=== PATIENT | male | born 1940 | race Caucasian/White ===

== ENCOUNTER 2016-10-24 09:42 | Observation (INO) | payer MEDICARE, OTHER ==
[~2016-10-24] VITALS: Ht 177.8 cm; Wt 90.7 kg
[2016-10-24] VITALS (20 sets, daily range): BP systolic 99–191; BP diastolic 52–105
[~2016-10-24 09:42] MED LIST: ASPI325T4 PO; CARV6.25 PO; CEFP200T PO; ESCI20TA10 PO; HYDR12.58 PO; INSU100I13 SQ; LOSA100T6 PO; OMEG1CAP38 PO; OXYC5TAB PO; SODI650T PO; WARF5TAB7 PO
[2016-10-24] MEDS ORDERED: OMEG1CAP28 PO (10:04)
[2016-10-24] MEDS ORDERED: INSU100V8 SQ (10:04)
[2016-10-24] MEDS ORDERED: VALS1TAB27 PO (10:04)
[2016-10-24] MEDS ORDERED: INSU100I11 SQ (10:04)
[2016-10-24] MEDS: IV NORMAL SALINE 1000ML BAG 1,000 ML IV SCH ×4 (10:30→23:40)
[2016-10-24 10:31] LABS: BASO % 1 % (0-3); EOS % 2 % (0-3); HEMATOCRIT 36.9 % (39.0-53.0); HEMOGLOBIN 12.7 g/dL (13.0-17.5); LYMPH # 1.8 x10^3/uL (1.0-4.8); LYMPH % 27 % (24-48); MEAN CORPUSCULAR HEMOGLOBIN 31 pg (25-35); MEAN CORPUSCULAR HGB CONC 35 g/dL (31-37); MEAN CORPUSCULAR VOLUME 89 fL (79-100); MONO % 9 % (0-9); NEUT % 62 % (31-73); PLATELET COUNT 161 x10^3/uL (140-400); RED BLOOD COUNT 4.15 x10^6/uL (4.30-5.70); RED CELL DISTRIBUTION WIDTH 14.1 % (11.5-14.5); WHITE BLOOD COUNT 6.6 x10^3/uL (4.0-11.0)
[2016-10-24] MEDS ORDERED: LIDOCAINE 2% 20 ML VIAL. ONE (10:44)
[2016-10-24 10:45] LABS: INR 1.4 (0.8-1.1); PROTHROMBIN TIME PATIENT 16.2 SEC (11.7-14.0)
[2016-10-24] MEDS ORDERED: IODIXANOL 320 MG/ML 100 ML VIAL. ONE (10:45)
[2016-10-24] MEDS ORDERED: FENTANYL PF 250 MCG/5 ML VIAL. ONE (11:04)
[2016-10-24] MEDS ORDERED: MIDAZOLAM HCL/PF 5 MG/5 ML VIAL ONE (11:04)
[2016-10-24 11:05] LABS: CALCIUM 8.5 mg/dL (8.5-10.1); CREATININE 1.4 mg/dL (0.7-1.3); POTASSIUM 4.9 mmol/L (3.5-5.1)
--- NOTE | 2016-10-24 11:23 | PDOC ---
MODERATE SEDATION ASSESSMENT RISKS/ALTERNATIVES Risks/Alternatives Risks and alternatives of this type of sedation and procedure discussed with: RISK/ALTERNATIVES: Patient H & P ON CHART H & P H & P on chart and reviewed for co-morbid conditions and appropriate labs. H&P ON CHART: Yes STATUS PREG STATUS ASSESSED: N/A MEDS/ALLERGIES REVIEWED Meds/Allergies Reviewed Medications and Allergies including time and route of recently administered narcotics and sedatives. MEDS/ALLERGIES REVIEWED: Yes ASA RATING ASA RATING: III AIRWAY ASSESSMENT Airway Assessment Airway patency, oral function limitations, presence of caps, crowns, dentures, partials, and ability to extend neck assessed. AIRWAY ASSESSMENT: Yes MALLAMPATI SCORE MALLAMPATI SCORE: II PRE-SEDATION ASSESSMENT PRE-SEDATION ASSESSMENT: Yes THANIA TINSLEY MD Oct 24, 2016 11:22
[2016-10-24] MEDS ORDERED: VERAPAMIL 5 MG/2 ML VIAL. ONE (11:52)
[2016-10-24] MEDS ORDERED: HEPARIN for IV BOLUS 10,000 UNIT/10 ML VIAL. ONE (11:52)
[2016-10-24] MEDS ORDERED: NITROGLYCERIN 200 MCG/2 ML SYRINGE FOR CATH/VASC LAB. ONE (11:52)
[2016-10-24] MEDS ORDERED: HEPARIN for IV BOLUS 10,000 UNIT/10 ML VIAL. IART ONE (12:00)
[2016-10-24] MEDS ORDERED: NITROGLYCERIN 200 MCG/2 ML SYRINGE FOR CATH/VASC LAB. IART ONE (12:00)
[2016-10-24] MEDS ORDERED: VERAPAMIL 5 MG/2 ML VIAL. IART ONE (12:00)
[2016-10-24] MEDS ORDERED: HEPARIN for IV BOLUS 10,000 UNIT/10 ML VIAL. IV ONE (13:15)
[2016-10-24] MEDS ORDERED: MIDAZOLAM HCL/PF 5 MG/5 ML VIAL IV ONE (13:30)
[2016-10-24] MEDS ORDERED: IODIXANOL 320 MG/ML 100 ML VIAL. IART ONE (13:30)
[2016-10-24] MEDS ORDERED: LIDOCAINE 2% 20 ML VIAL. IJ ONE (13:30)
[2016-10-24] MEDS ORDERED: FENTANYL PF 250 MCG/5 ML VIAL. IV ONE (13:30)
--- NOTE | 2016-10-24 14:27 | CARD ---
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 Attempts at percutaneous intervention to right anterior tibial artery via antegrade appr oach was unsuccessful. Patient presented today for possible percutaneous revascularization of right a nterior tibial artery via pedal axis in an attempt to heal the wound in the right foot.. PROCEDURE NARRATIVE After the risks, benefits and alternative options, informed consent was obtained from patient. Baltazar nt brought to the cardiac Optimization Consultant and his right foot was prepped and draped in the usual fashion. A rterial access was obtained in the right dorsalis pedis artery under vascular ultrasound guidance and 6 Portuguese sheath was inserted. After several initial unsuccessful attempts at traversing the long ch ronic total occlusion of the right anterior tibial artery using 0.014 inch command guidewire followed by AsanCrypted Cloud pro-water guidewire were unsuccessful, this was successfully crossed with a 0.014 inch epi austin [employer]s guidewire. Multiple inflations were then performed within the proximal, mid and distal segm ents of the right anterior tibial artery using 2.0 x 120 mm Runnells balloon followed by 2.5 x 120 mm C hocolate balloon. Follow-up angiography showed resolution of the stenosis to 0%. Patient tolerated the procedure well. Hemostasis was achieved using TR band. There were no immediate complications. 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
[2016-10-24] MEDS: IV 1/2 NORMAL SALINE 1,000 ML IV SCH ×2 (14:39→22:37)
[2016-10-24] MEDS ORDERED: ACETAMINOPHEN 325 MG TABLET. PO PRN (14:45)
[2016-10-24] MEDS ORDERED: WARFARIN 5 MG TABLET. PO SCH (17:00)
[2016-10-24] MEDS: CARVEDILOL 6.25 MG TABLET PO SCH (17:21)
[2016-10-24] MEDS: INSULIN ASPART 300 UNITS/3 ML INSULN.PEN SQ SCH (17:31)
[2016-10-24] MEDS ORDERED: DIPHENHYDRAMINE HCL 25 MG CAPSULE PO PRN (20:15)
[2016-10-24] MEDS ORDERED: INSULIN DETEMIR 300 UNITS/3 ML INSULN.PEN. SQ SCH (21:00)
[2016-10-24] MEDS: SODIUM BICARBONATE 650 MG TABLET. PO SCH (21:48)
[2016-10-25 03:15] VITALS: BP 176/81
[2016-10-25] MEDS: IV 1/2 NORMAL SALINE 1,000 ML IV SCH (06:45)
[2016-10-25 07:16] VITALS: BP 169/82
[2016-10-25] MEDS: INSULIN ASPART 300 UNITS/3 ML INSULN.PEN SQ SCH ×2 (07:30→12:29)
[2016-10-25] MEDS ORDERED: LOSARTAN POTASSIUM 50 MG TABLET. PO SCH (09:00)
[2016-10-25] MEDS ORDERED: HYDROCHLOROTHIAZIDE 12.5 MG CAPSULE. PO SCH (09:00)
[2016-10-25] MEDS ORDERED: OMEGA-3 FATTY ACIDS/FISH OIL 1,000 MG CAPSULE. PO SCH (09:00)
[2016-10-25] MEDS ORDERED: ESCITALOPRAM 10 MG TABLET. PO PRN (09:00)
[2016-10-25] MEDS ORDERED: ASPIRIN 325 MG TABLET PO SCH (09:00)
[2016-10-25] MEDS: SODIUM BICARBONATE 650 MG TABLET. PO SCH (09:27)
[2016-10-25] MEDS: CARVEDILOL 6.25 MG TABLET PO SCH (09:29)
[2016-10-25 10:15] VITALS: BP 169/77
--- NOTE | 2016-10-25 11:23 | DISCH ---
DISCHARGE INSTRUCTIONS Condition on Discharge Condition on Discharge: Stable Activity After Discharge Activity Instructions for Disc: Activity as tolerated, Avoid exertion Lifting Instructions after Dis: No pulling or pushing Weight Bearing Status after Di: As tolerated Diet after Discharge Diet after Discharge: Cardiac Wound Incision Care Wound/Incision Care: Keep wound/cast CDI Contacting the DRElla after DC Call your doctor for: Concerns you may have JOAQUIN KEY APRN Oct 25, 2016 11:23
--- NOTE | 2016-10-25 16:15 | PDOC3 ---
Discharge Summary Visit Information Date of Admission: Oct 24, 2016 Date of Discharge: Oct 25, 2016 Admitting Diagnosis: Peripheral Vascular Disease Final Diagnosis Problems Medical Problems: (1) Peripheral vascular disease Status: Acute Brief Hospital Course Allergies Allergies Coded Allergies Type Severity Reaction Last Updated Verified Penicillins Allergy Severe Anaphylaxis 09/29/16 Yes simvastatin Adverse Reaction Intermediate MUSCLE ACHES 09/29/16 No Vital Signs Vital Signs Date Time Temp Pulse Resp B/P Pulse Ox O2 Delivery O2 Flow Rate FiO2 10/25/16 10:15 72 20 169/77 95 Room Air 10/25/16 07:16 98.1 98.1 Lab Results Laboratory Tests Test 10/24/16 10:20 10/24/16 17:07 10/24/16 20:58 10/25/16 07:53 White Blood Count 6.6x10^3/uL (4.0-11.0) Red Blood Count 4.15x10^6/uL (4.30-5.70) Hemoglobin 12.7g/dL (13.0-17.5) Hematocrit 36.9% (39.0-53.0) Mean Corpuscular Volume 89fL (79-100) Mean Corpuscular Hemoglobin 31pg (25-35) Mean Corpuscular Hemoglobin Concent 35g/dL (31-37) Red Cell Distribution Width 14.1% (11.5-14.5) Platelet Count 161x10^3/uL (140-400) Neutrophils (%) (Auto) 62% (31-73) Lymphocytes (%) (Auto) 27% (24-48) Monocytes (%) (Auto) 9% (0-9) Eosinophils (%) (Auto) 2% (0-3) Basophils (%) (Auto) 1% (0-3) Neutrophils # (Auto) 4.1x10^3uL (1.8-7.7) Lymphocytes # (Auto) 1.8x10^3/uL (1.0-4.8) Monocytes # (Auto) 0.6x10^3/uL (0.0-1.1) Eosinophils # (Auto) 0.1x10^3/uL (0.0-0.7) Basophils # (Auto) 0.0x10^3/uL (0.0-0.2) Prothrombin Time 16.2SEC (11.7-14.0) Prothromb Time International Ratio 1.4 (0.8-1.1) Sodium Level 136mmol/L (136-145) Potassium Level 4.9mmol/L (3.5-5.1) Chloride Level 100mmol/L (98-107) Carbon Dioxide Level 27mmol/L (21-32) Anion Gap 9 (6-14) Blood Urea Nitrogen 23mg/dL (8-26) Creatinine 1.4mg/dL (0.7-1.3) Estimated GFR (Cockcroft-Gault) 49.0 Glucose Level 284mg/dL (70-99) Calcium Level 8.5mg/dL (8.5-10.1) Glucose (Fingerstick) 285mg/dL (70-99) 154mg/dL (70-99) 100mg/dL (70-99) Test 10/25/16 11:34 Glucose (Fingerstick) 152mg/dL (70-99) Laboratory Tests Test 10/24/16 17:07 10/24/16 20:58 10/25/16 07:53 10/25/16 11:34 Glucose (Fingerstick) 285mg/dL (70-99) 154mg/dL (70-99) 100mg/dL (70-99) 152mg/dL (70-99) Brief Hospital Course Mr. 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 Attempts at percutaneous intervention to right anterior tibial artery via antegrade approach was unsuccessful. Patient presented electively for possible percutaneous revascularization of right anterior tibial artery via pedal axis in an attempt to heal the wound in the right foot. Patient underwent successful balloon STEEPLE JACK to chronic total occlusion involving the right anterior tibial artery. Tolerated procedure well. Monitored and hydrated overnight in prevention of GARRY. VSS. Lungs CTA. Heart tones regular. Bilateral LE neurovascular status intact; no edema present. History additionally positive for CAD and HTN, which are stable upon discharge. Discharge Information Condition at Discharge: Stable Follow Up: Weeks (4) Scheduled Carvedilol (Coreg) 6.25 MG PO BIDWMEALS (Reported) Insulin Glargine,Hum.rec.anlog (Lantus) 40 UNIT SQ HS (Reported) Insulin Lispro (Humalog) 14 UNIT SQ TIDAC (Reported) Ensign-3 Fatty Acids/Fish Oil (Fish Oil 1,200 Mg Softgel) 1 EACH PO DAILY ( Reported) Sodium Bicarbonate (Sodium Bicarbonate) 1 TAB PO BID (Reported) Valsartan/Hydrochlorothiazide (Valsartan-Hctz 160-12.5 Mg Tab) 1 EACH PO DAILY ( Reported) Warfarin Sodium (Warfarin Sodium) 5 MG PO DAILY (Reported) Scheduled PRN Escitalopram Oxalate (Lexapro) 20 MG PO DAILY PRN PRN ANXIETY / AGITATION ( Reported) Miscellaneous Medications Aspirin (Aspirin) 325 MG PO (Reported) Discontinued Medications Hydrochlorothiazide (Hydrochlorothiazide Tablet) 12.5 MG PO DAILY (Reported) Losartan Potassium (Losartan Potassium) 160 MG PO DAILY (Reported) Patient Instructions Patient Instructions GENERAL INSTRUCTIONS: 1. Your dressing should be removed prior to leaving the hospital. 2. It is OK to shower the day after your procedure. 3. If you received stents, be sure to carry your stent information card with you in your wallet/purse at all times. 4. Call the office immediately at [phone] if you notice any fever or if there is redness, worsening tenderness/pain, increased bruising, or drainage from the puncture site. 5. Should you have bleeding from the site, lie down immediately & put pressure on the site. The pressure should be hard enough to stop the bleeding. Have the nearest person call 911. DO NOT try to drive to the ER with active bleeding. 6. If you notice a change in color, coolness to touch, or loss of feeling in the affected extremity, come to the emergency room. Please have someone drive you or call 911 if no one is available. DO NOT drive yourself. 7. If you normally take glucophage (metformin), please do not take this medicine for 48 hours following your procedure. 8. DO NOT STOP TAKING YOUR PLAVIX OR ASPIRIN UNLESS IT IS CLEARED BY A HEAD OF TALENT MANAGEMENT OF YOUR INVESTMENT DIRECTOR AT OUR OFFICE. 9. QUIT SMOKING: the [place] [employer], [employer] [employer], & [employer] [employer] have cessation resources available on their websites 10. Please have someone available to drive you home from the hospital as you may be limited by sedation medications given during the procedure. JOAQUIN KEY APRN Oct 25, 2016 16:15
== END 2016-10-25 15:28 | disposition home or self-care (01) ==
LOC: CCL 09:42 → INTOOBSV 12:55 → 2 SOUTH 12:55
PROVIDERS: ADMIT Internal Medicine Cardiovascular Disease; ATTEND Internal Medicine Cardiovascular Disease
DX: I73.9 Peripheral vascular disease, unspecified (principal); I10 Essential (primary) hypertension; I25.10 Atherosclerotic heart disease of native coronary artery without angina pectoris
CPT/HCPCS: 36415; 37228; 76937; 80048; 82947; 85027; 85610; 96372; 96374; 96375; C1725; C1769; C1892; G0378; G0379; J1815; J2250; J3010; J3490; Q0163; J7030

== ENCOUNTER 2016-11-26 11:43 | Inpatient (IN) | payer MEDICARE, OTHER ==
[~2016-11-26] VITALS: Ht 177.8 cm; Wt 94.5 kg
[~2016-11-26 11:43] MED LIST changes: +INSU100I11 SQ; +INSU100V8 SQ; +OMEG1CAP28 PO; +VALS1TAB27 PO
[2016-11-26] MEDS ORDERED: ONDANSETRON PF 4 MG/2 ML VIAL. IV PRN ×2 (12:45→15:45)
[2016-11-26] MEDS ORDERED: VANCOMYCIN PER PHARMACY MC PRN (12:45)
[2016-11-26] MEDS ORDERED: IV NORMAL SALINE 500ML BAG 500 ML IV ONE (12:45)
[2016-11-26] MEDS ORDERED: MORPHINE SULFATE 2 MG/ML DISP.SYRIN. IV PRN (12:45)
[2016-11-26] MEDS ORDERED: VANCOMYCIN 2 GM in IV NORMAL SALINE 500ML BAG 500 ML IV ONE (13:00)
--- NOTE | 2016-11-26 13:14 | RAD ---
Three-view radiographs of the right foot 11/26/2016 Clinical history: Osteomyelitis of the right foot. AP, lateral and oblique digital radiographs of the right foot were obtained. Comparison is made to the patient's MRI of the right foot dated 11/24/2016. 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 Irregularity and bony destruction is seen involving the proximal metaphysis/diaphysis of the proximal phalanx of the right third toe which corresponds to the areas of osteomyelitis seen on the patient's MRI examination. Extensive vascular calcifications are noted. Mild to moderate degenerative changes are seen throughout the remaining interphalangeal joints of the right foot along with seen first MTP joint and first tarsometatarsal joint. Impression: Findings are again seen consistent with osteomyelitis involving the proximal phalanx of the right third toe.
[2016-11-26] MEDS: IV NORMAL SALINE 1000ML BAG 1,000 ML IV SCH ×2 (13:18→21:14)
[2016-11-26 13:24] LABS: BASO % 1 % (0-3); EOS % 1 % (0-3); HEMATOCRIT 31.3 % (39.0-53.0); HEMOGLOBIN 10.7 g/dL (13.0-17.5); LYMPH # 1.5 x10^3/uL (1.0-4.8); LYMPH % 17 % (24-48); MEAN CORPUSCULAR HEMOGLOBIN 30 pg (25-35); MEAN CORPUSCULAR HGB CONC 34 g/dL (31-37); MEAN CORPUSCULAR VOLUME 89 fL (79-100); MONO % 11 % (0-9); NEUT % 72 % (31-73); PLATELET COUNT 268 x10^3/uL (140-400); RED BLOOD COUNT 3.52 x10^6/uL (4.30-5.70); RED CELL DISTRIBUTION WIDTH 14.7 % (11.5-14.5); WHITE BLOOD COUNT 8.8 x10^3/uL (4.0-11.0)
[2016-11-26 13:33] LABS: CALCIUM 8.4 mg/dL (8.5-10.1); CREATININE 1.7 mg/dL (0.7-1.3); GFR 39.2; POTASSIUM 4.1 mmol/L (3.5-5.1)
[2016-11-26 13:35] LABS: C-REACTIVE PROTEIN 116.6 mg/L (0-3.3)
--- NOTE | 2016-11-26 13:59 | PDOC ---
Infectious Disease Note ROS ROS GEN: Denies fevers, chills, sweats HEENT: Denies blurred vision, sore throat CV: Denies chest pain RESP: Denies shortness of air, cough GI: Denies n/v/d NEURO: Denies confusion, dizziness MSK: Denies weakness, joint pain/swelling Vital Sign Vital Signs Vital Signs Date Time Temp Pulse Resp B/P Pulse Ox O2 Delivery O2 Flow Rate FiO2 11/26/16 12:00 97.7 59 20 126/56 95 Room Air 97.7 Physical Exam PHYSICAL EXAM GENERAL: NAD, Alert HEENT: PERRL, OC/OP NECK: Supple, no JVD, no LN LUNGS: Clear HEART: S1S2, no gallop, no murmur ABD: Soft, NT, no organomegaly, no rebound EXT: No edema, no cyanosis FIRST AID TEACHER: Alert, oriented x 3, no focal neurologic deficit SKIN: No rash IV: ok Labs Lab Laboratory Tests Test 11/26/16 13:05 White Blood Count 8.8x10^3/uL (4.0-11.0) Red Blood Count 3.52x10^6/uL (4.30-5.70) Hemoglobin 10.7g/dL (13.0-17.5) Hematocrit 31.3% (39.0-53.0) Mean Corpuscular Volume 89fL (79-100) Mean Corpuscular Hemoglobin 30pg (25-35) Mean Corpuscular Hemoglobin Concent 34g/dL (31-37) Red Cell Distribution Width 14.7% (11.5-14.5) Platelet Count 268x10^3/uL (140-400) Neutrophils (%) (Auto) 72% (31-73) Lymphocytes (%) (Auto) 17% (24-48) Monocytes (%) (Auto) 11% (0-9) Eosinophils (%) (Auto) 1% (0-3) Basophils (%) (Auto) 1% (0-3) Neutrophils # (Auto) 6.3x10^3uL (1.8-7.7) Lymphocytes # (Auto) 1.5x10^3/uL (1.0-4.8) Monocytes # (Auto) 0.9x10^3/uL (0.0-1.1) Eosinophils # (Auto) 0.1x10^3/uL (0.0-0.7) Basophils # (Auto) 0.0x10^3/uL (0.0-0.2) Sodium Level 139mmol/L (136-145) Potassium Level 4.1mmol/L (3.5-5.1) Chloride Level 101mmol/L (98-107) Carbon Dioxide Level 30mmol/L (21-32) Anion Gap 8 (6-14) Blood Urea Nitrogen 40mg/dL (8-26) Creatinine 1.7mg/dL (0.7-1.3) Estimated GFR (Cockcroft-Gault) 39.2 Glucose Level 94mg/dL (70-99) Calcium Level 8.4mg/dL (8.5-10.1) C-Reactive Protein, Quantitative 116.6mg/L (0-3.3) Micro IMPRESSION MRI 11/24 1. Findings are compatible with osteomyelitis involving the proximal phalanx of the 3rd toe, and possibly also at the 3rd metatarsal head. Marrow edema within the middle 3rd phalanx may just be reactive. 2. There is generalized soft tissue edema and muscle edema without drainable fluid collection or abscess. 3. Mild marrow edema and low T1 signal at the distal remnant of the 5th metatarsal could be related to the recent surgery, but mild osteomyelitis is not excludable here, particularly if there is an overlying ulceration. 4. Mild 3rd flexor tenosynovitis. 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 10/24/16 Plan Plan of Care Dose Meropenem Hold further Vanc Zyvox/Micafungin F/u labs in am and cults Await Surgery D/w Thank you # [phone] DEVYN MOSQUEDA MD Nov 26, 2016 13:59
--- NOTE | 2016-11-26 14:10 | PHYS DOC ---
Past Medical History Past Medical History: Diabetes-Type II, High Cholesterol, Heart Disease, Hypertension, Other Additional Past Medical Histor: Lumbar herniated disk,renal failure, Osteomyelitis to sternum. Past Surgical History: Coronary Bypass Surgery, Tonsillectomy, Other Additional Past Surgical Histo: CABG x 5,surgery for Osteomyelitis, R)4th&5th toe removed,Bilat.cataract. Alcohol Use: Occasionally Drug Use: None Adult General Chief Complaint Chief Complaint: FOOT INJURY PAIN HPI HPI 76-year-old male presenting to the emergency department after discovering he has osteomyelitis of the foot. He was instructed to come in to the emergency department for IV antibiotics. He is currently scheduled to have surgery on Sunday. He has home wound care. He currently has pain in the foot that is sharp nonradiating moderate and without alleviating factors. He has a history of type 2 diabetes hypertension heart failure. He also has a history of a CABG in the past. Review of systems is negative for chest pain shortness of breath abdominal pain nausea vomiting fevers or chills. All other review of systems is negative unless otherwise noted in history of present illness. Review of Systems Review of Systems SEE ABOVE. Current Medications Current Medications Current Medications Medications (Trade) Dose Ordered Sig/Michelle Start Time Stop Time Status Last Admin Dose Admin Morphine Sulfate 2 mg 2 mg PRN Q2HR PRN 11/26/16 12:45 11/27/16 12:44 Ondansetron HCl (Zofran) 4 mg PRN Q8HRS PRN 11/26/16 12:45 11/27/16 12:44 Sodium Chloride (Iv Sodium Chloride 0.9% 500ml Bag) 500 ml @ 500 mls/hr 1X ONCE 11/26/16 12:45 11/26/16 13:44 DC Sodium Chloride (Iv Sodium Chloride 0.9% 1000ml Bag) 1,000 ml @ 125 mls/hr Q8H 11/26/16 12:43 11/27/16 12:42 11/26/16 13:18 125 MLS/HR Vancomycin HCl 1 each 1 each PRN DAILY PRN 11/26/16 12:45 11/26/16 13:30 DC Allergies Allergies Allergies Coded Allergies Type Severity Reaction Last Updated Verified simvastatin Adverse Reaction Intermediate MUSCLE ACHES 09/29/16 No Physical Exam Physical Exam Constitutional: Well developed, well nourished, no acute distress, non-toxic appearance. HENT: Normocephalic, atraumatic, bilateral external ears normal, oropharynx moist, no oral exudates, nose normal. [] Eyes: PERRLA, EOMI, conjunctiva normal, no discharge. Neck: Normal range of motion, no tenderness, supple, no stridor. Cardiovascular:Heart rate regular rhythm, no murmur [] Lungs & Thorax: Bilateral breath sounds clear to auscultation Abdomen: Bowel sounds normal, soft, no tenderness, no masses, no pulsatile masses. [] Skin: Warm, dry, no erythema, no rash. Back: No tenderness, no CVA tenderness. [] Extremities: The patient's right lower extremity shows a darkened black third toe with mild moist erythema surrounding. Neurologic: Alert and oriented X 3, normal motor function, normal sensory function, no focal deficits noted. Psychologic: Affect normal, judgement normal, mood normal. [] Current Patient Data Vital Signs Vital Signs Date Time Temp Pulse Resp B/P Pulse Ox O2 Delivery O2 Flow Rate FiO2 11/26/16 12:00 97.7 59 20 126/56 95 Room Air 97.7 EKG EKG [] Radiology/Procedures Radiology/Procedures [] Course & Med Decision Making Course & Med Decision Making Pertinent Labs and Imaging studies reviewed. (See chart for details) [] 76-year-old male presenting to the emergency department today with worsening osteomyelitis and cellulitis of the foot. On examination the patient's vital signs showed afebrile with a normal heart rate. Satting well with normal blood pressure. Physical exam showed erythema with darkened black gangrene. The patient was brought into our emergency department for the purpose of admission for IV antibiotics. I ordered IV vancomycin IV saline and admitted the patient to our hospitalist team with surgical and infectious disease consultation. The patient was subsequent admitted for further evaluation workup and care. Dragon Disclaimer Dragon Disclaimer This electronic medical record was generated, in whole or in part, using a voice recognition dictation system. Departure Departure Impression: Primary Impression: Osteomyelitis Additional Impression: Cellulitis of right toe Disposition: ADMITTED INPATIENT Admitting Physician: Cristy Salas Condition: STABLE Referrals: SEVERIANO BLOCK MD (PCP) Problem Qualifiers NIRMALA YBARRA MD Nov 26, 2016 14:10
[2016-11-26 15:00] VITALS: BP 133/76
--- NOTE | 2016-11-26 15:11 | RAD ---
Right lower extremity arterial duplex study 11/26/2016 Clinical history: Osteomyelitis involving the right third toe. Peripheral vascular disease. Technique: Using a combination of real-time ultrasound imaging and color-flow and pulse Doppler imaging techniques, duplex evaluation of the major arterial structures of the right lower extremity was performed. Multiple images were obtained. Findings: Mild to moderate atheromatous/atherosclerotic plaque formation is seen involving the major arterial structures of the right lower extremity. Biphasic arterial waveforms are seen involving the right common femoral artery. The remaining visualized arterial structures are monophasic. The peak systolic velocities taper normally. No hemodynamically significant stenosis is seen. No flow is definitely visualized within the anterior tibial artery and dorsalis pedis artery. These arteries appear to be occluded. Arterial flow is seen within the distal right peroneal and right posterior tibial artery. Impression: Mild to moderate atheromatous/atelectatic plaque formation is seen involving the major arterial structures of the right lower extremity. No hemodynamically significant stenosis is seen. The right anterior tibial artery and right dorsalis pedis arteries appear to be occluded.
--- NOTE | 2016-11-26 15:43 | PDOC1 ---
History and Physical Date of Admission Date of Admission 11/26/16 Identification/Chief Complaint Chief Complaint right foot osteo Problems: Source Source: Chart review, Patient History of Present Illness History of Present Illness HPI HPI 76-year-old male presenting to the emergency department after discovering he has osteomyelitis of the foot. pt has DM ON Insulin, right 4th and 5th toes post amputation before for osteo. He saw his vice president talent management last week, right foot has worsening erythema, and 3rd toe is gangrene, did MRI showed osteo, started with doxy yesterday, comes here today for iv abx and plan to do sx. No fever, chills, sob, or chest pain. Past Medical History Cardiovascular: CAD, HTN, Hyperlipidemia Pulmonary: No pertinent hx CENTRAL NERVOUS SYSTEM: CVA, Periperal neuropathy GI: No pertinent hx, Other Heme/Onc: Other Hepatobiliary: No pertinent hx Psych: Anxiety, Depression Infectious disease: Other Renal/: Chronic renal insuff Endocrine: Diabetes Past Surgical History Past Surgical History: CABG, Cataract Removal Family History Family History: Coronary Artery Disease, Diabetes Social History Smoke: No ALCOHOL: none Drugs: None Current Problem List Problem List Problems Medical Problems: (1) Cellulitis of right toe Status: Acute (2) Osteomyelitis Status: Acute Current Medications Current Medications Current Medications Medications (Trade) Dose Ordered Sig/Michelle Start Time Stop Time Status Last Admin Dose Admin Linezolid (Zyvox Premix) 300 ml @ 300 mls/hr Q12HR 11/26/16 14:00 Meropenem 500 mg/ Sodium Chloride 50 ml @ 100 mls/hr Q6HRS 11/26/16 14:00 Micafungin Sodium 100 mg/Dextrose 100 ml @ 100 mls/hr Q24H 11/26/16 14:00 Morphine Sulfate 2 mg 2 mg PRN Q2HR PRN 11/26/16 12:45 11/27/16 12:44 Ondansetron HCl (Zofran) 4 mg PRN Q8HRS PRN 11/26/16 12:45 11/27/16 12:44 Sodium Chloride 1,000 ml @ 125 mls/hr Q8H 11/26/16 12:43 11/27/16 12:42 11/26/16 13:18 125 MLS/HR Vancomycin HCl 1 each 1 each PRN DAILY PRN 11/26/16 12:45 11/26/16 13:30 DC Vancomycin HCl/ Sodium Chloride (Iv Sodium Chloride 0.9% 500ml Bag) 500 ml @ 250 mls/hr 1X ONCE 11/26/16 13:00 11/26/16 14:59 DC 11/26/16 13:09 250 MLS/HR Allergies Allergies Allergies Coded Allergies Type Severity Reaction Last Updated Verified Penicillins Allergy Severe Anaphylaxis 11/26/16 Yes simvastatin Adverse Reaction Intermediate MUSCLE ACHES 09/29/16 No ROS Review of System CONSTITUTIONAL: No fever or chills EYES: No recent changes SKIN: No rash or itching CARDIOVASCULAR: No chest pain, syncope, palpitations, or edema RESPIRATORY: No SOB or cough GASTROINTESTINAL: No nausea, vomiting or abdominal pain NEUROLOGICAL: No headaches or weakness ENDOCRINE: No cold or heat intolerance GENITOURINARY: No urgency or frequency of urination MUSCULOSKELETAL: No back pain or joint pain LYMPHATICS: No enlarged lymph nodes PSYCHIATRIC: No anxiety or depression Physical Exam Physical Exam GEN.: No apparent distress. Alert and oriented. HEENT: Head is normocephalic, atraumatic NECK: Supple. LUNGS: Clear to auscultation. HEART: RRR, S1, S2 present. Peripheral pulses intact ABDOMEN: Soft, nontender. Positive bowel sounds. EXTREMITIES: Without any cyanosis. right 3rd toe gangrene, foot erythematous, mild tenderness, one ope wound on lateral foot. NEUROLOGIC: Normal speech, normal tone PSYCHIATRIC: Normal affect, normal mood. SKIN: No ulcerations Vitals Vitals Vital Signs Date Time Temp Pulse Resp B/P Pulse Ox O2 Delivery O2 Flow Rate FiO2 11/26/16 12:00 97.7 59 20 126/56 95 Room Air 97.7 Labs Labs Laboratory Tests Test 11/26/16 13:05 White Blood Count 8.8x10^3/uL (4.0-11.0) Red Blood Count 3.52x10^6/uL (4.30-5.70) Hemoglobin 10.7g/dL (13.0-17.5) Hematocrit 31.3% (39.0-53.0) Mean Corpuscular Volume 89fL (79-100) Mean Corpuscular Hemoglobin 30pg (25-35) Mean Corpuscular Hemoglobin Concent 34g/dL (31-37) Red Cell Distribution Width 14.7% (11.5-14.5) Platelet Count 268x10^3/uL (140-400) Neutrophils (%) (Auto) 72% (31-73) Lymphocytes (%) (Auto) 17% (24-48) Monocytes (%) (Auto) 11% (0-9) Eosinophils (%) (Auto) 1% (0-3) Basophils (%) (Auto) 1% (0-3) Neutrophils # (Auto) 6.3x10^3uL (1.8-7.7) Lymphocytes # (Auto) 1.5x10^3/uL (1.0-4.8) Monocytes # (Auto) 0.9x10^3/uL (0.0-1.1) Eosinophils # (Auto) 0.1x10^3/uL (0.0-0.7) Basophils # (Auto) 0.0x10^3/uL (0.0-0.2) Erythrocyte Sedimentation Rate > 150 (0-15) Sodium Level 139mmol/L (136-145) Potassium Level 4.1mmol/L (3.5-5.1) Chloride Level 101mmol/L (98-107) Carbon Dioxide Level 30mmol/L (21-32) Anion Gap 8 (6-14) Blood Urea Nitrogen 40mg/dL (8-26) Creatinine 1.7mg/dL (0.7-1.3) Estimated GFR (Cockcroft-Gault) 39.2 Glucose Level 94mg/dL (70-99) Calcium Level 8.4mg/dL (8.5-10.1) C-Reactive Protein, Quantitative 116.6mg/L (0-3.3) Laboratory Tests Test 11/26/16 13:05 White Blood Count 8.8x10^3/uL (4.0-11.0) Red Blood Count 3.52x10^6/uL (4.30-5.70) Hemoglobin 10.7g/dL (13.0-17.5) Hematocrit 31.3% (39.0-53.0) Mean Corpuscular Volume 89fL (79-100) Mean Corpuscular Hemoglobin 30pg (25-35) Mean Corpuscular Hemoglobin Concent 34g/dL (31-37) Red Cell Distribution Width 14.7% (11.5-14.5) Platelet Count 268x10^3/uL (140-400) Neutrophils (%) (Auto) 72% (31-73) Lymphocytes (%) (Auto) 17% (24-48) Monocytes (%) (Auto) 11% (0-9) Eosinophils (%) (Auto) 1% (0-3) Basophils (%) (Auto) 1% (0-3) Neutrophils # (Auto) 6.3x10^3uL (1.8-7.7) Lymphocytes # (Auto) 1.5x10^3/uL (1.0-4.8) Monocytes # (Auto) 0.9x10^3/uL (0.0-1.1) Eosinophils # (Auto) 0.1x10^3/uL (0.0-0.7) Basophils # (Auto) 0.0x10^3/uL (0.0-0.2) Erythrocyte Sedimentation Rate > 150 (0-15) Sodium Level 139mmol/L (136-145) Potassium Level 4.1mmol/L (3.5-5.1) Chloride Level 101mmol/L (98-107) Carbon Dioxide Level 30mmol/L (21-32) Anion Gap 8 (6-14) Blood Urea Nitrogen 40mg/dL (8-26) Creatinine 1.7mg/dL (0.7-1.3) Estimated GFR (Cockcroft-Gault) 39.2 Glucose Level 94mg/dL (70-99) Calcium Level 8.4mg/dL (8.5-10.1) C-Reactive Protein, Quantitative 116.6mg/L (0-3.3) VTE Prophylaxis Ordered VTE Prophylaxis Devices: Yes VTE Pharmacological Prophylaxi: No Assessment/Plan Assessment/Plan 1. 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 dm2 on insulin 4. H/O CAD post CAG 5. HTN 6. HLD 7. OBesity 8. recent PAD right tibial A POST balloon 9. normacytic anemia 10. CKD4 11. H/O DVT OF right leg on coumadin plan: 1. ID CONSULTED ERP consulted ortho, family wants podiatry, not sure if his vice president talent management will come to see him , if so , will change consult 2. cont home meds hold warfain, check INR, plan fo sx next week 3, on insulin , slightly decrease dose ,SSI 4. pain control PTOT 5. on zyvox, meropenum and micofungin as per FAZAL GONSALES MD Nov 26, 2016 15:43
[2016-11-26] MEDS ORDERED: ACETAMINOPHEN 325 MG TABLET. PO PRN (15:45)
[2016-11-26] MEDS ORDERED: DEXTROSE 50% 25 GM / 50ML DISP.SYRIN. IV PRN (15:45)
[2016-11-26] MEDS: MEROPENEM 500 MG in IV NORMAL SALINE 50ML 50 ML IV SCH ×2 (16:24→17:04)
[2016-11-26] MEDS ORDERED: INSULIN LISPRO 14 UNIT SQ SCH (16:30)
[2016-11-26] MEDS: INSULIN ASPART 300 UNITS/3 ML INSULN.PEN SQ SCH ×2 (17:00→17:22)
--- NOTE | 2016-11-26 17:02 | ACF ---
Admission Forms Criteria Admission Criteria Met?: No GEOFFREY TAYLOR Nov 26, 2016 17:02 NIRMALA YBARRA MD Nov 28, 2016 18:09
[2016-11-26] MEDS: MICAFUNGIN 100 MG in IV DEXTROSE 5% 100 ML IV SCH (17:11)
[2016-11-26] MEDS: CARVEDILOL 6.25 MG TABLET PO SCH (17:12)
[2016-11-26 19:00] VITALS: BP 116/54
--- NOTE | 2016-11-26 19:31 | PDOC ---
ORTHO PROGRESS NOTES Vitals Vital Signs Date Time Temp Pulse Resp B/P Pulse Ox O2 Delivery O2 Flow Rate FiO2 11/26/16 17:12 77 133/76 11/26/16 15:00 97.9 20 98 Room Air 97.9 Labs Laboratory Tests Test 11/26/16 13:05 11/26/16 16:32 White Blood Count 8.8x10^3/uL (4.0-11.0) Red Blood Count 3.52x10^6/uL (4.30-5.70) Hemoglobin 10.7g/dL (13.0-17.5) Hematocrit 31.3% (39.0-53.0) Mean Corpuscular Volume 89fL (79-100) Mean Corpuscular Hemoglobin 30pg (25-35) Mean Corpuscular Hemoglobin Concent 34g/dL (31-37) Red Cell Distribution Width 14.7% (11.5-14.5) Platelet Count 268x10^3/uL (140-400) Neutrophils (%) (Auto) 72% (31-73) Lymphocytes (%) (Auto) 17% (24-48) Monocytes (%) (Auto) 11% (0-9) Eosinophils (%) (Auto) 1% (0-3) Basophils (%) (Auto) 1% (0-3) Neutrophils # (Auto) 6.3x10^3uL (1.8-7.7) Lymphocytes # (Auto) 1.5x10^3/uL (1.0-4.8) Monocytes # (Auto) 0.9x10^3/uL (0.0-1.1) Eosinophils # (Auto) 0.1x10^3/uL (0.0-0.7) Basophils # (Auto) 0.0x10^3/uL (0.0-0.2) Erythrocyte Sedimentation Rate > 150 (0-15) Sodium Level 139mmol/L (136-145) Potassium Level 4.1mmol/L (3.5-5.1) Chloride Level 101mmol/L (98-107) Carbon Dioxide Level 30mmol/L (21-32) Anion Gap 8 (6-14) Blood Urea Nitrogen 40mg/dL (8-26) Creatinine 1.7mg/dL (0.7-1.3) Estimated GFR (Cockcroft-Gault) 39.2 Glucose Level 94mg/dL (70-99) Calcium Level 8.4mg/dL (8.5-10.1) C-Reactive Protein, Quantitative 116.6mg/L (0-3.3) Glucose (Fingerstick) 73mg/dL (70-99) Laboratory Tests Test 11/26/16 13:05 11/26/16 16:32 White Blood Count 8.8x10^3/uL (4.0-11.0) Red Blood Count 3.52x10^6/uL (4.30-5.70) Hemoglobin 10.7g/dL (13.0-17.5) Hematocrit 31.3% (39.0-53.0) Mean Corpuscular Volume 89fL (79-100) Mean Corpuscular Hemoglobin 30pg (25-35) Mean Corpuscular Hemoglobin Concent 34g/dL (31-37) Red Cell Distribution Width 14.7% (11.5-14.5) Platelet Count 268x10^3/uL (140-400) Neutrophils (%) (Auto) 72% (31-73) Lymphocytes (%) (Auto) 17% (24-48) Monocytes (%) (Auto) 11% (0-9) Eosinophils (%) (Auto) 1% (0-3) Basophils (%) (Auto) 1% (0-3) Neutrophils # (Auto) 6.3x10^3uL (1.8-7.7) Lymphocytes # (Auto) 1.5x10^3/uL (1.0-4.8) Monocytes # (Auto) 0.9x10^3/uL (0.0-1.1) Eosinophils # (Auto) 0.1x10^3/uL (0.0-0.7) Basophils # (Auto) 0.0x10^3/uL (0.0-0.2) Erythrocyte Sedimentation Rate > 150 (0-15) Sodium Level 139mmol/L (136-145) Potassium Level 4.1mmol/L (3.5-5.1) Chloride Level 101mmol/L (98-107) Carbon Dioxide Level 30mmol/L (21-32) Anion Gap 8 (6-14) Blood Urea Nitrogen 40mg/dL (8-26) Creatinine 1.7mg/dL (0.7-1.3) Estimated GFR (Cockcroft-Gault) 39.2 Glucose Level 94mg/dL (70-99) Calcium Level 8.4mg/dL (8.5-10.1) C-Reactive Protein, Quantitative 116.6mg/L (0-3.3) Glucose (Fingerstick) 73mg/dL (70-99) Assessment and Plan note dictated discussed with Krishna, will get angio to assess for possible revascularization SHAYY MCKEON II, MD Nov 26, 2016 19:31
[2016-11-26] MEDS ORDERED: INSULIN GLARGINE HUM REC ANLOG 40 UNIT SQ SCH (21:00)
[2016-11-26] MEDS: SODIUM BICARBONATE 650 MG TABLET. PO SCH (21:14)
[2016-11-26] MEDS: INSULIN DETEMIR 300 UNITS/3 ML INSULN.PEN. SQ SCH (21:19)
[2016-11-26 23:16] VITALS: BP 139/61
[2016-11-27] MEDS: MEROPENEM 500 MG in IV NORMAL SALINE 50ML 50 ML IV SCH ×4 (00:12→17:48)
[2016-11-27 03:21] VITALS: BP 129/62
[2016-11-27] MEDS: IV NORMAL SALINE 1000ML BAG 1,000 ML IV SCH (05:57)
[2016-11-27 06:04] LABS: BASO % 1 % (0-3); EOS % 1 % (0-3); HEMATOCRIT 28.8 % (39.0-53.0); HEMOGLOBIN 10.2 g/dL (13.0-17.5); LYMPH # 1.6 x10^3/uL (1.0-4.8); LYMPH % 24 % (24-48); MEAN CORPUSCULAR HEMOGLOBIN 31 pg (25-35); MEAN CORPUSCULAR HGB CONC 35 g/dL (31-37); MEAN CORPUSCULAR VOLUME 88 fL (79-100); MONO % 12 % (0-9); NEUT % 62 % (31-73); PLATELET COUNT 247 x10^3/uL (140-400); RED BLOOD COUNT 3.29 x10^6/uL (4.30-5.70); RED CELL DISTRIBUTION WIDTH 14.8 % (11.5-14.5); WHITE BLOOD COUNT 6.8 x10^3/uL (4.0-11.0)
[2016-11-27 06:19] LABS: INR 2.5 (0.8-1.1); PROTHROMBIN TIME PATIENT 25.4 SEC (11.7-14.0)
[2016-11-27 06:24] LABS: CALCIUM 7.9 mg/dL (8.5-10.1); CREATININE 1.4 mg/dL (0.7-1.3); POTASSIUM 4.1 mmol/L (3.5-5.1)
[2016-11-27 07:00] VITALS: BP 174/92
[2016-11-27] MEDS: INSULIN ASPART 300 UNITS/3 ML INSULN.PEN SQ SCH ×6 (08:00→17:55)
[2016-11-27] MEDS: CARVEDILOL 6.25 MG TABLET PO SCH ×2 (08:00→17:47)
[2016-11-27] MEDS: ASPIRIN 325 MG TABLET PO SCH (09:00)
--- NOTE | 2016-11-27 09:36 | PDOC ---
ORTHO PROGRESS NOTES Subjective No new pain. Vitals Vital Signs Date Time Temp Pulse Resp B/P Pulse Ox O2 Delivery O2 Flow Rate FiO2 11/27/16 07:00 98.2 68 22 174/92 95 Room Air 98.2 Labs Laboratory Tests Test 11/26/16 13:05 11/26/16 16:32 11/26/16 20:56 11/27/16 05:35 White Blood Count 8.8x10^3/uL (4.0-11.0) 6.8x10^3/uL (4.0-11.0) Red Blood Count 3.52x10^6/uL (4.30-5.70) 3.29x10^6/uL (4.30-5.70) Hemoglobin 10.7g/dL (13.0-17.5) 10.2g/dL (13.0-17.5) Hematocrit 31.3% (39.0-53.0) 28.8% (39.0-53.0) Mean Corpuscular Volume 89fL (79-100) 88fL (79-100) Mean Corpuscular Hemoglobin 30pg (25-35) 31pg (25-35) Mean Corpuscular Hemoglobin Concent 34g/dL (31-37) 35g/dL (31-37) Red Cell Distribution Width 14.7% (11.5-14.5) 14.8% (11.5-14.5) Platelet Count 268x10^3/uL (140-400) 247x10^3/uL (140-400) Neutrophils (%) (Auto) 72% (31-73) 62% (31-73) Lymphocytes (%) (Auto) 17% (24-48) 24% (24-48) Monocytes (%) (Auto) 11% (0-9) 12% (0-9) Eosinophils (%) (Auto) 1% (0-3) 1% (0-3) Basophils (%) (Auto) 1% (0-3) 1% (0-3) Neutrophils # (Auto) 6.3x10^3uL (1.8-7.7) 4.2x10^3uL (1.8-7.7) Lymphocytes # (Auto) 1.5x10^3/uL (1.0-4.8) 1.6x10^3/uL (1.0-4.8) Monocytes # (Auto) 0.9x10^3/uL (0.0-1.1) 0.8x10^3/uL (0.0-1.1) Eosinophils # (Auto) 0.1x10^3/uL (0.0-0.7) 0.1x10^3/uL (0.0-0.7) Basophils # (Auto) 0.0x10^3/uL (0.0-0.2) 0.0x10^3/uL (0.0-0.2) Erythrocyte Sedimentation Rate > 150 (0-15) Sodium Level 139mmol/L (136-145) 136mmol/L (136-145) Potassium Level 4.1mmol/L (3.5-5.1) 4.1mmol/L (3.5-5.1) Chloride Level 101mmol/L (98-107) 103mmol/L (98-107) Carbon Dioxide Level 30mmol/L (21-32) 23mmol/L (21-32) Anion Gap 8 (6-14) 10 (6-14) Blood Urea Nitrogen 40mg/dL (8-26) 35mg/dL (8-26) Creatinine 1.7mg/dL (0.7-1.3) 1.4mg/dL (0.7-1.3) Estimated GFR (Cockcroft-Gault) 39.2 49.0 Glucose Level 94mg/dL (70-99) 177mg/dL (70-99) Calcium Level 8.4mg/dL (8.5-10.1) 7.9mg/dL (8.5-10.1) C-Reactive Protein, Quantitative 116.6mg/L (0-3.3) Glucose (Fingerstick) 73mg/dL (70-99) 135mg/dL (70-99) Prothrombin Time 25.4SEC (11.7-14.0) Prothromb Time International Ratio 2.5 (0.8-1.1) Test 11/27/16 07:27 Glucose (Fingerstick) 166mg/dL (70-99) Laboratory Tests Test 11/26/16 13:05 11/26/16 16:32 2/5/17 20:56 11/27/16 05:35 White Blood Count 8.8x10^3/uL (4.0-11.0) 6.8x10^3/uL (4.0-11.0) Red Blood Count 3.52x10^6/uL (4.30-5.70) 3.29x10^6/uL (4.30-5.70) Hemoglobin 10.7g/dL (13.0-17.5) 10.2g/dL (13.0-17.5) Hematocrit 31.3% (39.0-53.0) 28.8% (39.0-53.0) Mean Corpuscular Volume 89fL (79-100) 88fL (79-100) Mean Corpuscular Hemoglobin 30pg (25-35) 31pg (25-35) Mean Corpuscular Hemoglobin Concent 34g/dL (31-37) 35g/dL (31-37) Red Cell Distribution Width 14.7% (11.5-14.5) 14.8% (11.5-14.5) Platelet Count 268x10^3/uL (140-400) 247x10^3/uL (140-400) Neutrophils (%) (Auto) 72% (31-73) 62% (31-73) Lymphocytes (%) (Auto) 17% (24-48) 24% (24-48) Monocytes (%) (Auto) 11% (0-9) 12% (0-9) Eosinophils (%) (Auto) 1% (0-3) 1% (0-3) Basophils (%) (Auto) 1% (0-3) 1% (0-3) Neutrophils # (Auto) 6.3x10^3uL (1.8-7.7) 4.2x10^3uL (1.8-7.7) Lymphocytes # (Auto) 1.5x10^3/uL (1.0-4.8) 1.6x10^3/uL (1.0-4.8) Monocytes # (Auto) 0.9x10^3/uL (0.0-1.1) 0.8x10^3/uL (0.0-1.1) Eosinophils # (Auto) 0.1x10^3/uL (0.0-0.7) 0.1x10^3/uL (0.0-0.7) Basophils # (Auto) 0.0x10^3/uL (0.0-0.2) 0.0x10^3/uL (0.0-0.2) Erythrocyte Sedimentation Rate > 150 (0-15) Sodium Level 139mmol/L (136-145) 136mmol/L (136-145) Potassium Level 4.1mmol/L (3.5-5.1) 4.1mmol/L (3.5-5.1) Chloride Level 101mmol/L (98-107) 103mmol/L (98-107) Carbon Dioxide Level 30mmol/L (21-32) 23mmol/L (21-32) Anion Gap 8 (6-14) 10 (6-14) Blood Urea Nitrogen 40mg/dL (8-26) 35mg/dL (8-26) Creatinine 1.7mg/dL (0.7-1.3) 1.4mg/dL (0.7-1.3) Estimated GFR (Cockcroft-Gault) 39.2 49.0 Glucose Level 94mg/dL (70-99) 177mg/dL (70-99) Calcium Level 8.4mg/dL (8.5-10.1) 7.9mg/dL (8.5-10.1) C-Reactive Protein, Quantitative 116.6mg/L (0-3.3) Glucose (Fingerstick) 73mg/dL (70-99) 135mg/dL (70-99) Prothrombin Time 25.4SEC (11.7-14.0) Prothromb Time International Ratio 2.5 (0.8-1.1) Test 11/27/16 07:27 Glucose (Fingerstick) 166mg/dL (70-99) Notes Resting, easily awakens. RLE: 3rd toe unchanged in appearance, wound unchanged in appearance no DP pulse forefoot cooler than contralateral Assessment and Plan will await Vascular Surg input angio delayed due to high INR SHAYY MCKEON II, MD Nov 27, 2016 09:36
--- NOTE | 2016-11-27 10:34 | PDOC ---
Infectious Disease Note Subjective Subjective Doing ok. Eating. Pain ok ROS ROS GEN: Denies fevers, chills, sweats HEENT: Denies blurred vision, sore throat CV: Denies chest pain RESP: Denies shortness of air, cough GI: Denies n/v/d NEURO: Denies confusion, dizziness MSK: Denies weakness, joint pain/swelling Vital Sign Vital Signs Vital Signs Date Time Temp Pulse Resp B/P Pulse Ox O2 Delivery O2 Flow Rate FiO2 11/27/16 07:00 98.2 68 22 174/92 95 Room Air 98.2 Physical Exam PHYSICAL EXAM GENERAL: NAD, Alert, eating HEENT: PERRL, OC/OP - clear NECK: Supple, no JVD, no LN LUNGS: Clear HEART: S1S2, no gallop, no murmur ABD: Soft, NT, no organomegaly, no rebound, Obese EXT: No edema, no cyanosis. Toe with drier feeder gangrene. Wound is dry [employer]: Alert, oriented x 3, no focal neurologic deficit SKIN: No rash IV: ok Labs Lab Laboratory Tests Test 11/26/16 13:05 11/26/16 16:32 11/26/16 20:56 11/27/16 05:35 White Blood Count 8.8x10^3/uL (4.0-11.0) 6.8x10^3/uL (4.0-11.0) Red Blood Count 3.52x10^6/uL (4.30-5.70) 3.29x10^6/uL (4.30-5.70) Hemoglobin 10.7g/dL (13.0-17.5) 10.2g/dL (13.0-17.5) Hematocrit 31.3% (39.0-53.0) 28.8% (39.0-53.0) Mean Corpuscular Volume 89fL (79-100) 88fL (79-100) Mean Corpuscular Hemoglobin 30pg (25-35) 31pg (25-35) Mean Corpuscular Hemoglobin Concent 34g/dL (31-37) 35g/dL (31-37) Red Cell Distribution Width 14.7% (11.5-14.5) 14.8% (11.5-14.5) Platelet Count 268x10^3/uL (140-400) 247x10^3/uL (140-400) Neutrophils (%) (Auto) 72% (31-73) 62% (31-73) Lymphocytes (%) (Auto) 17% (24-48) 24% (24-48) Monocytes (%) (Auto) 11% (0-9) 12% (0-9) Eosinophils (%) (Auto) 1% (0-3) 1% (0-3) Basophils (%) (Auto) 1% (0-3) 1% (0-3) Neutrophils # (Auto) 6.3x10^3uL (1.8-7.7) 4.2x10^3uL (1.8-7.7) Lymphocytes # (Auto) 1.5x10^3/uL (1.0-4.8) 1.6x10^3/uL (1.0-4.8) Monocytes # (Auto) 0.9x10^3/uL (0.0-1.1) 0.8x10^3/uL (0.0-1.1) Eosinophils # (Auto) 0.1x10^3/uL (0.0-0.7) 0.1x10^3/uL (0.0-0.7) Basophils # (Auto) 0.0x10^3/uL (0.0-0.2) 0.0x10^3/uL (0.0-0.2) Erythrocyte Sedimentation Rate > 150 (0-15) Sodium Level 139mmol/L (136-145) 136mmol/L (136-145) Potassium Level 4.1mmol/L (3.5-5.1) 4.1mmol/L (3.5-5.1) Chloride Level 101mmol/L (98-107) 103mmol/L (98-107) Carbon Dioxide Level 30mmol/L (21-32) 23mmol/L (21-32) Anion Gap 8 (6-14) 10 (6-14) Blood Urea Nitrogen 40mg/dL (8-26) 35mg/dL (8-26) Creatinine 1.7mg/dL (0.7-1.3) 1.4mg/dL (0.7-1.3) Estimated GFR (Cockcroft-Gault) 39.2 49.0 Glucose Level 94mg/dL (70-99) 177mg/dL (70-99) Calcium Level 8.4mg/dL (8.5-10.1) 7.9mg/dL (8.5-10.1) C-Reactive Protein, Quantitative 116.6mg/L (0-3.3) Glucose (Fingerstick) 73mg/dL (70-99) 135mg/dL (70-99) Prothrombin Time 25.4SEC (11.7-14.0) Prothromb Time International Ratio 2.5 (0.8-1.1) Test 11/27/16 07:27 Glucose (Fingerstick) 166mg/dL (70-99) Micro IMPRESSION MRI 11/24 1. Findings are compatible with osteomyelitis involving the proximal phalanx of the 3rd toe, and possibly also at the 3rd metatarsal head. Marrow edema within the middle 3rd phalanx may just be reactive. 2. There is generalized soft tissue edema and muscle edema without drainable fluid collection or abscess. 3. Mild marrow edema and low T1 signal at the distal remnant of the 5th metatarsal could be related to the recent surgery, but mild osteomyelitis is not excludable here, particularly if there is an overlying ulceration. 4. Mild 3rd flexor tenosynovitis. 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 10/24/16 Plan Plan of Care Cont Meropenem/Zyvox/Micafungin F/u labs in am and cults Await Surgery after vascular eval D/w Dr. Alcocer/Rajani and Mikki GAVIRIA - Vascular DEVYN MOSQUEDA MD Nov 27, 2016 10:34
[2016-11-27 11:07] VITALS: BP 155/70
--- NOTE | 2016-11-27 11:48 | CONS ---
DATE OF CONSULTATION: 11/26/2016 PATIENT'S ROOM: 562, was seen in the Emergency Room. REQUESTING PHYSICIAN: ____. REASON FOR CONSULTATION: Foot wound, osteomyelitis. HISTORY OF PRESENT ILLNESS: The patient is a ____-ftri-nzo gentleman with history of diabetes who in 09/2016 underwent amputation of his right fifth and fourth toes. He did have a wound VAC at the time and has been followed by Dr. Gerard. Cultures have grown out a group F strep, porphyromonas species and a methicillin-sensitive Staph aureus species back in September. He apparently was seen by Dr. Gerard on Sunday and had an MRI performed here. MRI showed compatible with osteomyelitis proximal third toe, possible third metatarsal head marrow edema, generalized soft tissue edema without drainable collection or abscess and some marrow edema of T1 of the remnant of the fifth metatarsal, also some third flexor tenosynovitis. Apparently, he received a phone call on Sunday to present to the hospital to get admitted for antibiotics, however, he did not present till today. He had started doxycycline at home. He denies any active fevers or chills or sweats. No headaches, sore throat, cough, chest pain, no nausea, vomiting, diarrhea. He has had some fatigue. PAST MEDICAL HISTORY: Positive for the previous osteomyelitis of his right fifth and fourth toes, history of peripheral arterial disease, history of type 2 diabetes, coronary artery disease, previous DVT, hypertension, ____ sternal wound in 2003. PAST SURGICAL HISTORY: Positive for CABG procedure as well as undergoing a PROP SAWYER to total occlusion involving the right anterior tibial artery on 10/24/2016. Cultures again in the past have been positive for group F strep as well as porphyromonas. Cultures acquired from the 2nd have a Staph aureus species. Currently, he has received some vancomycin. REVIEW OF SYSTEMS: Otherwise negative except for mentioned above. ALLERGIES: ____ he states causes some swelling, but previously stated it was happening after he came out of anesthesia. SOCIAL HISTORY: He is , is with him, no alcohol, tobacco. FAMILY HISTORY: Noncontributory. CURRENT MEDICATIONS: Again, include vancomycin. Other meds are available. PHYSICAL EXAMINATION: VITAL SIGNS: Afebrile, temperature 97.7, pulse ____, respirations 20, blood pressure 126/56, satting 95% on room air. CONSTITUTIONAL: He is a very pleasant. He is cooperative. He is in no acute distress. He is lying in a stretcher. He looks comfortable. HEENT: Pupils are status post cataract surgery. Normal conjunctivae. Oral cavity, pharynx is clear. NECK: Supple, no JVD. LUNGS: Clear to auscultation bilaterally. HEART: S1, S2. ABDOMEN: Soft, nontender, nondistended, positive bowel sounds. EXTREMITIES: Without clubbing, cyanosis. His right lower extremity has a wound over his fourth to fifth toes previously where there is some mild necrotic tissue there, but also has a good wound ____. His third toe is consistent with wet gangrene, has a strong odor associated with it and also has yeast associated with it. He has decreased pulses. SKIN: Warm to touch without signs of rash. NEUROLOGIC: He is nonfocal and appropriate. PSYCHIATRIC: Intact. Affect is appropriate. LABORATORY DATA: White count 8.8, hemoglobin 10.7, platelets of 268, neutrophils 72, lymphs 17, creatinine now 1.7. Radiology reviewed in history of present illness. IMPRESSION: 1. Wet gangrene of the right third toe Staph aureus from the second culture. 2. Penicillin allergy. 3. History of previous strep. 4. Peripheral arterial disease status post PROP SAWYER as mentioned above. RECOMMENDATIONS: We will dose meropenem, we will hold further vancomycin. We will add Zyvox secondary to renal failure. Also Zyvox may cutdown on toxin production since it works at the ribosomal level in case this is a toxin producing staph. Also add micafungin given his tinea. We will follow up on labs and cultures, await surgery. This was discussed with the . Thank you for allowing me to participate in the patient's care. If you have any questions, please do not hesitate to contact me. DEVYN MOSQUEDA MD DR: YON/earnest JOB#: [id number] / [id number]
[2016-11-27] MEDS: LOSARTAN POTASSIUM 50 MG TABLET. PO SCH (11:54)
[2016-11-27] MEDS: ESCITALOPRAM 10 MG TABLET. PO SCH (11:55)
[2016-11-27] MEDS: SODIUM BICARBONATE 650 MG TABLET. PO SCH ×2 (11:55→21:46)
[2016-11-27] MEDS: OMEGA-3 FATTY ACIDS/FISH OIL 1,000 MG CAPSULE. PO SCH (11:55)
[2016-11-27] MEDS: HYDROCHLOROTHIAZIDE 12.5 MG CAPSULE. PO SCH (11:55)
--- NOTE | 2016-11-27 12:28 | PDOC2 ---
ASHA TANNER SHOE CLEANER 11/27/16 1228: CARDIAC CONSULT DATE OF CONSULT Date of Consult DATE: 11/27/16 TIME: 12:20 REASON FOR CONSULT Reason for Consult: PVD REFERRING PHYSICIAN Referring Physician: Rajani SOURCE Source: Chart review, Patient HISTORY OF PRESENT ILLNESS HISTORY OF PRESENT ILLNESS This is a pleasant 76 yo male admitted for complains of right foot swelling and toe darkening. He is significant for PAD with recent intervention and CAD with prior CABG and stable. He was seen in our office recently and was recommended to see his comic writer. In the last few days mainly on , his spouse has noticed his right third toe becoming darker. He was not complaining of much pain but this is also complicated by DPN. Reports some swelling of the right foot. He was seen by home health staff and recommended to see his comic writer. He was then recommended with po antibiotics and then he was told to go to ED to get started on IV antibiotics. He has been noted with osteomyelitis to right third toe/possible involvement of right metatarsal head and scheduled for surgery this Sunday. Currently denies any pain to right foot, his right third toe is necrotic black, notable mild rubor with warmness and remains to have positive sensation to surrounding foot structures. He has been compliant with his routine medications including warfarin and ASA. Pls see attached H & P obtained on 11/23/2016 for further details medical history. CURRENT MEDICATIONS CURRENT MEDICATIONS Current Medications Medications (Trade) Dose Ordered Sig/Michelle Route PRN Reason Start Time Stop Time Status Last Admin Dose Admin Sodium Chloride 500 ml @ 500 mls/hr 1X ONCE IV 11/26/16 12:45 11/26/16 13:44 DC 11/26/16 14:52 Vancomycin HCl 2 gm/Sodium Chloride 500 ml @ 250 mls/hr 1X ONCE IV 11/26/16 13:00 11/26/16 14:59 DC 11/26/16 13:09 Sodium Chloride 1,000 ml @ 125 mls/hr Q8H IV 11/26/16 12:43 11/27/16 12:42 11/27/16 05:57 Meropenem 500 mg/ Sodium Chloride 50 ml @ 100 mls/hr Q6HRS IV 11/26/16 14:00 11/27/16 05:57 Micafungin Sodium 100 mg/Dextrose 100 ml @ 100 mls/hr Q24H IV 11/26/16 14:00 11/26/16 17:11 Linezolid (Zyvox Premix) 300 ml @ 300 mls/hr Q12HR IV 11/26/16 14:00 11/27/16 11:54 Insulin Aspart (Novolog) 0-9 UNITS TIDWMEALS SQ 11/26/16 17:00 11/27/16 11:52 Carvedilol (Coreg) 6.25 mg BIDWMEALS PO 11/26/16 17:00 11/27/16 08:00 Sodium Bicarbonate (Sodium Bicarbonate) 650 mg BID PO 11/26/16 21:00 11/27/16 11:55 Escitalopram Oxalate (Lexapro) 20 mg DAILY PO 11/27/16 09:00 11/27/16 11:55 Fish Oil (Fish Oil) 1,000 mg DAILY PO 11/27/16 09:00 11/27/16 11:55 Hydrochlorothiazide (Microzide) 12.5 mg DAILY PO 11/27/16 09:00 11/27/16 11:55 Insulin Detemir (Levemir) 40 units QHS SQ 11/26/16 21:00 11/26/16 21:19 Insulin Aspart (Novolog) 10 units TIDWMEALS SQ 11/26/16 17:00 11/27/16 11:53 Losartan Potassium (Cozaar) 100 mg DAILY PO 11/27/16 09:00 11/27/16 11:54 ALLERGIES ALLERGIES: Coded Allergies: Penicillins (Verified Allergy, Severe, Anaphylaxis, 11/26/16) SWELLING OF LIPS AND AIRWAY. TOLERATES MERREM simvastatin (Unverified Adverse Reaction, Intermediate, MUSCLE ACHES, 09/29) ROS Review of System 14 point ROS evaluated with pertinent positives noted per HPI PHYSICAL EXAM General: Alert, Oriented X3, Cooperative, No acute distress HEENT: Atraumatic, Mucous membr. moist/pink Lungs: Clear to auscultation, Normal air movement Heart: Regular rate (RRR), Normal S1, Normal S2, Other (3/6 systolic murmur to LLS border) Abdomen: Soft, No tenderness, Other (right foot 1+ edema; good positive pulse via pen doppler to right posterior tibialis and faint positive to right dorsalis pedis) Skin: Other (right third toe with necrotic tissue/rubor right foot) Neuro: Normal speech Psych/Mental Status: Mental status NL, Mood NL MUSCULOSKELETAL: Osteoarthritic changes both hands VITALS VITALS Vital Signs Date Time Temp Pulse Resp B/P Pulse Ox O2 Delivery O2 Flow Rate FiO2 11/27/16 11:54 67 155/70 11/27/16 11:07 98.5 20 92 Room Air 98.5 LABS Lab: Laboratory Tests Test 11/26/16 13:05 11/26/16 16:32 11/26/16 20:56 11/27/16 05:35 White Blood Count 8.8x10^3/uL (4.0-11.0) 6.8x10^3/uL (4.0-11.0) Red Blood Count 3.52x10^6/uL (4.30-5.70) 3.29x10^6/uL (4.30-5.70) Hemoglobin 10.7g/dL (13.0-17.5) 10.2g/dL (13.0-17.5) Hematocrit 31.3% (39.0-53.0) 28.8% (39.0-53.0) Mean Corpuscular Volume 89fL (79-100) 88fL (79-100) Mean Corpuscular Hemoglobin 30pg (25-35) 31pg (25-35) Mean Corpuscular Hemoglobin Concent 34g/dL (31-37) 35g/dL (31-37) Red Cell Distribution Width 14.7% (11.5-14.5) 14.8% (11.5-14.5) Platelet Count 268x10^3/uL (140-400) 247x10^3/uL (140-400) Neutrophils (%) (Auto) 72% (31-73) 62% (31-73) Lymphocytes (%) (Auto) 17% (24-48) 24% (24-48) Monocytes (%) (Auto) 11% (0-9) 12% (0-9) Eosinophils (%) (Auto) 1% (0-3) 1% (0-3) Basophils (%) (Auto) 1% (0-3) 1% (0-3) Neutrophils # (Auto) 6.3x10^3uL (1.8-7.7) 4.2x10^3uL (1.8-7.7) Lymphocytes # (Auto) 1.5x10^3/uL (1.0-4.8) 1.6x10^3/uL (1.0-4.8) Monocytes # (Auto) 0.9x10^3/uL (0.0-1.1) 0.8x10^3/uL (0.0-1.1) Eosinophils # (Auto) 0.1x10^3/uL (0.0-0.7) 0.1x10^3/uL (0.0-0.7) Basophils # (Auto) 0.0x10^3/uL (0.0-0.2) 0.0x10^3/uL (0.0-0.2) Erythrocyte Sedimentation Rate > 150 (0-15) Sodium Level 139mmol/L (136-145) 136mmol/L (136-145) Potassium Level 4.1mmol/L (3.5-5.1) 4.1mmol/L (3.5-5.1) Chloride Level 101mmol/L (98-107) 103mmol/L (98-107) Carbon Dioxide Level 30mmol/L (21-32) 23mmol/L (21-32) Anion Gap 8 (6-14) 10 (6-14) Blood Urea Nitrogen 40mg/dL (8-26) 35mg/dL (8-26) Creatinine 1.7mg/dL (0.7-1.3) 1.4mg/dL (0.7-1.3) Estimated GFR (Cockcroft-Gault) 39.2 49.0 Glucose Level 94mg/dL (70-99) 177mg/dL (70-99) Calcium Level 8.4mg/dL (8.5-10.1) 7.9mg/dL (8.5-10.1) C-Reactive Protein, Quantitative 116.6mg/L (0-3.3) Glucose (Fingerstick) 73mg/dL (70-99) 135mg/dL (70-99) Prothrombin Time 25.4SEC (11.7-14.0) Prothromb Time International Ratio 2.5 (0.8-1.1) Test 11/27/16 07:27 11/27/16 10:10 Glucose (Fingerstick) 166mg/dL (70-99) 206mg/dL (70-99) ASSESSMENT/PLAN ASSESSMENT/PLAN 1. Osteomyelitis with gangrene: right third toe necrotic 2. Severe PAD: The right anterior tibial artery and right dorsalis pedis arteries appear to be occluded per duplex 11/26/2015. Faint DP and good PT via pen doppler. Successful balloon TITLE CURATOR to chronic total occlusion involving the right anterior tibial artery. DATE: 10/24/16 142 3. CAD: CABG x6 in 2005. No anginal symptoms. 4. Hx of right leg DVT: 2 episodes in remote past. Claims he has IVC filter. Need to continue coumadin? INR 2.5 5. HTN/HLP 6. DM2 7. Hx of MRSA Recommendation 1. Discuss with primary glass mold repairer regarding repeat femoral runoff 2. Antibiotic therapy per ID/comic writer/ortho. Pending toe amputation. Vascular surgery has also been consulted. 3. Continue with secondary prevention 4. Preop TTE. EKG. 5. Will need antiplatelet optimization post surgery. If coumadin is discontinued , he will be a good candidate for zontivity. Problems: THANIA TINSLEY MD 11/27/16 1635: CARDIAC CONSULT ALLERGIES ALLERGIES: Coded Allergies: Penicillins (Verified Allergy, Severe, Anaphylaxis, 11/26/16) SWELLING OF LIPS AND AIRWAY. TOLERATES MERREM simvastatin (Unverified Adverse Reaction, Intermediate, MUSCLE ACHES, 09/29) ASSESSMENT/PLAN ASSESSMENT/PLAN Patient seen and examined. Agree with PACKAGE HANDLER's assessment and plan. Patient with history of peripheral vascular disease who recently underwent TITLE CURATOR to long chronic total occlusion involving the right anterior tibial artery via pedal access presented with gangrene of right third toe and found to have reocclusion off right anterior tibial artery on arterial duplex scan. Vascular surgery has been consulted for possible surgical revascularization. If he is not a good candidate for surgery, we will consider repeat percutaneous revascularization to his anterior tibial artery. CAD status clinically stable. Continue current medical regimen. Thank you for your consultation. Problems: ASHA TANNER APRN Nov 27, 2016 12:28 THANIA TINSLEY MD Nov 27, 2016 16:35
--- NOTE | 2016-11-27 13:25 | PDOC2 ---
EMILIA GOMEZ REGISTERED PHARMACIST 11/27/16 1325: CONSULT Date of Consult Date of Consult DATE: 11/27/16 TIME: 10:15 Reason for Consult Reason for Consult: Peripheral arterial disease with non-healing wounds to right foot. Referring Physician Referring Physician: Dr. Alcocer Identification/Chief Complaint Chief Complaint Right foot infection with osteomyelitis Source Source: Chart review, Patient History of Present Illness Reason for Visit: This is pleasant 76-year-old male who was directed by his release engineer to the Emergency Room over the weekend after he was found to have osteomyelitis of the third toe of the right foot. The patient has a history of peripheral arterial disease, recent amputation of toes 4 and 5 on the right foot, as well as diabetes mellitus, coronary artery disease, hypertension and chronic kidney disease. The patient reports having undergone amputation of the fourth and fifth toes of the right foot in September 2016 for osteomyelitis and wound vac therapy initiated. Additionally, the patient was found to have peripheral arterial disease. An attempt of an angioplasty of the right anterior tibial artery via antegrade approach was unsuccessful. Subsequently, the patient did undergo an angioplasty of the right anterior tibial artery via dorsalis pedal approach on October 24, 2016 to promote wound healing. Unfortunately as per the patient's , the condition of the amputation sites continued to decline and wound vac therapy was discontinued. Furthermore, the patient developed progressive necrotic gangrenous tissue changes to the right third toe. The patient was scheduled for a TMA by his release engineer this week but developed redness and swelling of the right foot prompting a foot xray which revealed osteomyelitis. Therefore, the patient has been admitted to begin IV antibiotic therapy. An arterial duplex was performed and indicates reocclusion of the right anterior tibial artery. Vascular Surgery consultation has been requested to provide recommendations and assist in the decision-making process for revascularization of the right lower extremity to promote wound healing. Past Medical History Past Medical History 1. Peripheral arterial disease. 2. Osteomyelitis of the right foot. 3. Coronary artery disease. 4. Hypertension. 5. Hyperlipidemia. 6. Peripheral neuropathy. 7. Diabetes mellitus, type 2. 8. Chronic renal insufficiency, probably stage 3. 9. History of staph infection to mediansternotomy site. 10. Stroke. 11. Depression and anxiety. Past Surgical History Past Surgical History 1. October 24, 2016 - TELEGRAPH OFFICE MANAGER of right anterior tibial artery via right dorsalis pedis access. 2. September 2016 - Amputation of fourth and fifth toes of right foot. 3. 2004 - Coronary artery bypass surgery with SVG harvest from both left and right legs at [facility]. 4. 2005 - Revision of mediansternotomy for osteomyelitis and staph wound infection of sternum requiring chronic IV antibiotic therapy. 5. 2005 - Placement of IVC filter at [facility]. 6. Cataract surgery. Family History Family History: Coronary Artery Disease, Diabetes Social History No ALCOHOL: none Drugs: None Lives: with Family Current Problem List Problem List Problems Medical Problems: (1) Cellulitis of right toe Status: Acute (2) Osteomyelitis Status: Acute (3) Peripheral vascular disease Status: Acute Current Medications Current Medications Current Medications Vancomycin HCl 1 each 1 each PRN DAILY PRN MC SEE COMMENTS; Start 11/26/16 at 12 :45; Stop 11/26/16 at 13:30; Status DC Sodium Chloride 500 ml @ 500 mls/hr 1X ONCE IV Last administered on 11/26/16 14:52; Start 11/26/16 at 12:45; Stop 11/26/16 at 13:44; Status DC Vancomycin HCl/ Sodium Chloride (Iv Sodium Chloride 0.9% 500ml Bag) 500 ml @ 250 mls/hr 1X ONCE IV Last administered on 11/26/16 13:09; Start 11/26/16 at 13 :00; Stop 11/26/16 at 14:59; Status DC Ondansetron HCl (Zofran) 4 mg PRN Q8HRS PRN IV NAUSEA/VOMITING; Start 11/26/16 at 12:45; Stop 11/26/16 at 15:59; Status DC Morphine Sulfate 2 mg 2 mg PRN Q2HR PRN IV PAIN; Start 11/26/16 at 12:45; Stop 11/27/16 at 12:44 Sodium Chloride 1,000 ml @ 125 mls/hr Q8H IV Last administered on 11/27/16 05: 57; Start 11/26/16 at 12:43; Stop 11/27/16 at 12:42 Meropenem 500 mg/ Sodium Chloride 50 ml @ 100 mls/hr Q6HRS IV Last administered on 11/27/16 05:57; Start 11/26/16 at 14:00 Micafungin Sodium 100 mg/Dextrose 100 ml @ 100 mls/hr Q24H IV Last administered on 11/26/16 17:11; Start 11/26/16 at 14:00 Linezolid (Zyvox Premix) 300 ml @ 300 mls/hr Q12HR IV Last administered on 11/26 21:14; Start 11/26/16 at 14:00 Acetaminophen (Tylenol) 650 mg PRN Q6HRS PRN PO MILD PAIN / TEMP; Start at 15:45 Ondansetron HCl (Zofran) 4 mg PRN Q6HRS PRN IV NAUSEA/VOMITING; Start 11/26/16 at 15:45 Acetaminophen/ Hydrocodone Bitart (Lortab 5/325) 1 tab PRN Q4HRS PRN PO PAIN; Start 11/26/16 at 15:45 Insulin Aspart (Novolog) 0-9 UNITS TIDWMEALS SQ ; Start 11/26/16 at 17:00 Dextrose 12.5 gm PRN Q15MIN PRN IV SEE COMMENTS; Start 11/26/16 at 15:45 Aspirin (Harrison Aspirin) 325 mg DAILY PO ; Start 11/27/16 at 09:00 Carvedilol (Coreg) 6.25 mg BIDWMEALS PO Last administered on 11/26/16 17:12; Start 11/26/16 at 17:00 Sodium Bicarbonate (Sodium Bicarbonate) 650 mg BID PO Last administered on 21:14; Start 11/26/16 at 21:00 Escitalopram Oxalate (Lexapro) 20 mg DAILY PO ; Start 11/27/16 at 09:00 Non-Formulary Medication 40 unit HS SQ ; Start 11/26/16 at 21:00; Stop 11/26/16 at 21:00; Status DC Non-Formulary Medication 14 unit TIDAC SQ ; Start 11/26/16 at 16:30; Stop at 16:30; Status DC Fish Oil (Fish Oil) 1,000 mg DAILY PO ; Start 11/27/16 at 09:00 Hydrochlorothiazide (Microzide) 12.5 mg DAILY PO ; Start 11/27/16 at 09:00 Insulin Detemir (Levemir) 40 units QHS SQ Last administered on 11/26/16 21:19; Start 11/26/16 at 21:00 Insulin Aspart (Novolog) 10 units TIDWMEALS SQ Last administered on 11/26/16t 17 :22; Start 11/26/16 at 17:00 Losartan Potassium (Cozaar) 100 mg DAILY PO ; Start 11/27/16 at 09:00 Active Scripts Active Reported Valsartan-Hctz 160-12.5 Mg Tab (Valsartan/Hydrochlorothiazide) 1 Each Tablet 1 Each PO DAILY Fish Oil 1,200 Mg Softgel ([place]-3 Fatty Acids/Fish Oil) 1 Each Capsule 1 Each PO BID Humalog (Insulin Lispro) 100 Unit/1 Ml Insuln.pen 14 Unit SQ TIDAC Lantus (Insulin Glargine,Hum.rec.anlog) 100 Unit/1 Ml Vial 40 Unit SQ HS Sodium Bicarbonate 650 Mg Tablet 1 Tab PO BID Aspirin 325 Mg Tablet 325 Mg PO Warfarin Sodium 5 Mg Tablet 5 Mg PO DAILY Coreg (Carvedilol) 6.25 Mg Tablet 6.25 Mg PO BIDWMEALS Lexapro (Escitalopram Oxalate) 20 Mg Tablet 20 Mg PO DAILY Allergies Allergies: Coded Allergies: Penicillins (Verified Allergy, Severe, Anaphylaxis, 11/26/16) SWELLING OF LIPS AND AIRWAY. TOLERATES MERREM simvastatin (Unverified Adverse Reaction, Intermediate, MUSCLE ACHES, 09/29) ROS General: YES: Other (No fever), No: Chills HEENT: YES: Tinnitus, No: Heacaches, Nasal congestion, Other (Amarosis fugax), Sore Throat, Vertigo Hematological and Lymphatic: YES: Blood Clots (Right lower extremity after CABG in 2004) Respiratory: YES: Orthopnea, Shortness of breath Cardiovascular: yes Edema (Right foot) Gastrointestinal: No Abdominal Pain, No Constipation, No Diarrhea, No Melena, No Nausea, No Vomiting Musculoskeletal: Yes Swelling In: (Right foot ) Skin: Yes Other (Right foot swollen and with erythema to forefoot. Non- healing open amputation sites of right fourth and fifth toes. Black third toe of right foot.) Physical Exam General: Alert, Oriented X3, Cooperative, No acute distress HEENT: Atraumatic, PERRLA, Other (No carotid bruit auscultated.) Lungs: Clear to auscultation, Normal air movement Heart: Regular rate, Normal S1, Normal S2, No murmurs Abdomen: Normal bowel sounds, Soft, No tenderness, No masses Extremities: Other (Pulses: Palpable bilateral brachial, radial, femoral and popliteal pulses. Doppleable monophasic left dorsalis pedal and post tibial pulses. Doppleable right post tibial pulse. Unable to dopple or palpate right dorsalis pedal pulse. Right foot swollen with erythema of forefoot.) Skin: Other (Right foot swollen and with erythema to forefoot and lateral aspect of foot. Dry, black scabbed wound base to previously amputated fourth and fifth toes of the right foot. Black, necrotic third toe of right foot.) Neuro: Normal speech, Strength at 5/5 X4 ext Psych/Mental Status: Mental status NL MUSCULOSKELETAL: Other (Amputation of fourth and fifth toes of right foot. Black necrotic gangrenous right third toe.) Vitals VITALS Vital Signs Date Time Temp Pulse Resp B/P Pulse Ox O2 Delivery O2 Flow Rate FiO2 11/27/16 11:07 98.5 67 20 155/70 92 Room Air 98.5 Labs Labs Laboratory Tests Test 11/26/16 13:05 11/26/16 16:32 11/26/16 20:56 11/27/16 05:35 White Blood Count 8.8x10^3/uL (4.0-11.0) 6.8x10^3/uL (4.0-11.0) Red Blood Count 3.52x10^6/uL (4.30-5.70) 3.29x10^6/uL (4.30-5.70) Hemoglobin 10.7g/dL (13.0-17.5) 10.2g/dL (13.0-17.5) Hematocrit 31.3% (39.0-53.0) 28.8% (39.0-53.0) Mean Corpuscular Volume 89fL (79-100) 88fL (79-100) Mean Corpuscular Hemoglobin 30pg (25-35) 31pg (25-35) Mean Corpuscular Hemoglobin Concent 34g/dL (31-37) 35g/dL (31-37) Red Cell Distribution Width 14.7% (11.5-14.5) 14.8% (11.5-14.5) Platelet Count 268x10^3/uL (140-400) 247x10^3/uL (140-400) Neutrophils (%) (Auto) 72% (31-73) 62% (31-73) Lymphocytes (%) (Auto) 17% (24-48) 24% (24-48) Monocytes (%) (Auto) 11% (0-9) 12% (0-9) Eosinophils (%) (Auto) 1% (0-3) 1% (0-3) Basophils (%) (Auto) 1% (0-3) 1% (0-3) Neutrophils # (Auto) 6.3x10^3uL (1.8-7.7) 4.2x10^3uL (1.8-7.7) Lymphocytes # (Auto) 1.5x10^3/uL (1.0-4.8) 1.6x10^3/uL (1.0-4.8) Monocytes # (Auto) 0.9x10^3/uL (0.0-1.1) 0.8x10^3/uL (0.0-1.1) Eosinophils # (Auto) 0.1x10^3/uL (0.0-0.7) 0.1x10^3/uL (0.0-0.7) Basophils # (Auto) 0.0x10^3/uL (0.0-0.2) 0.0x10^3/uL (0.0-0.2) Erythrocyte Sedimentation Rate > 150 (0-15) Sodium Level 139mmol/L (136-145) 136mmol/L (136-145) Potassium Level 4.1mmol/L (3.5-5.1) 4.1mmol/L (3.5-5.1) Chloride Level 101mmol/L (98-107) 103mmol/L (98-107) Carbon Dioxide Level 30mmol/L (21-32) 23mmol/L (21-32) Anion Gap 8 (6-14) 10 (6-14) Blood Urea Nitrogen 40mg/dL (8-26) 35mg/dL (8-26) Creatinine 1.7mg/dL (0.7-1.3) 1.4mg/dL (0.7-1.3) Estimated GFR (Cockcroft-Gault) 39.2 49.0 Glucose Level 94mg/dL (70-99) 177mg/dL (70-99) Calcium Level 8.4mg/dL (8.5-10.1) 7.9mg/dL (8.5-10.1) C-Reactive Protein, Quantitative 116.6mg/L (0-3.3) Glucose (Fingerstick) 73mg/dL (70-99) 135mg/dL (70-99) Prothrombin Time 25.4SEC (11.7-14.0) Prothromb Time International Ratio 2.5 (0.8-1.1) Test 11/27/16 07:27 11/27/16 10:10 Glucose (Fingerstick) 166mg/dL (70-99) 206mg/dL (70-99) Laboratory Tests Test 11/26/16 13:05 11/26/16 16:32 11/26/16 20:56 11/27/16 05:35 White Blood Count 8.8x10^3/uL (4.0-11.0) 6.8x10^3/uL (4.0-11.0) Red Blood Count 3.52x10^6/uL (4.30-5.70) 3.29x10^6/uL (4.30-5.70) Hemoglobin 10.7g/dL (13.0-17.5) 10.2g/dL (13.0-17.5) Hematocrit 31.3% (39.0-53.0) 28.8% (39.0-53.0) Mean Corpuscular Volume 89fL (79-100) 88fL (79-100) Mean Corpuscular Hemoglobin 30pg (25-35) 31pg (25-35) Mean Corpuscular Hemoglobin Concent 34g/dL (31-37) 35g/dL (31-37) Red Cell Distribution Width 14.7% (11.5-14.5) 14.8% (11.5-14.5) Platelet Count 268x10^3/uL (140-400) 247x10^3/uL (140-400) Neutrophils (%) (Auto) 72% (31-73) 62% (31-73) Lymphocytes (%) (Auto) 17% (24-48) 24% (24-48) Monocytes (%) (Auto) 11% (0-9) 12% (0-9) Eosinophils (%) (Auto) 1% (0-3) 1% (0-3) Basophils (%) (Auto) 1% (0-3) 1% (0-3) Neutrophils # (Auto) 6.3x10^3uL (1.8-7.7) 4.2x10^3uL (1.8-7.7) Lymphocytes # (Auto) 1.5x10^3/uL (1.0-4.8) 1.6x10^3/uL (1.0-4.8) Monocytes # (Auto) 0.9x10^3/uL (0.0-1.1) 0.8x10^3/uL (0.0-1.1) Eosinophils # (Auto) 0.1x10^3/uL (0.0-0.7) 0.1x10^3/uL (0.0-0.7) Basophils # (Auto) 0.0x10^3/uL (0.0-0.2) 0.0x10^3/uL (0.0-0.2) Erythrocyte Sedimentation Rate > 150 (0-15) Sodium Level 139mmol/L (136-145) 136mmol/L (136-145) Potassium Level 4.1mmol/L (3.5-5.1) 4.1mmol/L (3.5-5.1) Chloride Level 101mmol/L (98-107) 103mmol/L (98-107) Carbon Dioxide Level 30mmol/L (21-32) 23mmol/L (21-32) Anion Gap 8 (6-14) 10 (6-14) Blood Urea Nitrogen 40mg/dL (8-26) 35mg/dL (8-26) Creatinine 1.7mg/dL (0.7-1.3) 1.4mg/dL (0.7-1.3) Estimated GFR (Cockcroft-Gault) 39.2 49.0 Glucose Level 94mg/dL (70-99) 177mg/dL (70-99) Calcium Level 8.4mg/dL (8.5-10.1) 7.9mg/dL (8.5-10.1) C-Reactive Protein, Quantitative 116.6mg/L (0-3.3) Glucose (Fingerstick) 73mg/dL (70-99) 135mg/dL (70-99) Prothrombin Time 25.4SEC (11.7-14.0) Prothromb Time International Ratio 2.5 (0.8-1.1) Test 11/27/16 07:27 11/27/16 10:10 Glucose (Fingerstick) 166mg/dL (70-99) 206mg/dL (70-99) Images Images PROCEDURE: DUPLEX LOWER EX ARTERIAL RIGHT Findings: Mild to moderate atheromatous/atherosclerotic plaque formation is seen involving the major arterial structures of the right lower extremity. Biphasic arterial waveforms are seen involving the right common femoral artery. The remaining visualized arterial structures are monophasic. The peak systolic velocities taper normally. No hemodynamically significant stenosis is seen. No flow is definitely visualized within the anterior tibial artery and dorsalis pedis artery. These arteries appear to be occluded. Arterial flow is seen within the distal right peroneal and right posterior tibial artery. Impression: Mild to moderate atheromatous/atelectatic plaque formation is seen involving the major arterial structures of the right lower extremity. No hemodynamically significant stenosis is seen. The right anterior tibial artery and right dorsalis pedis arteries appear to be occluded. Three-view radiographs of the right foot 11/26/2016 AP, lateral and oblique digital radiographs of the right foot were obtained. Comparison is made to the patient's MRI of the right foot dated 11/24/2016. 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 Irregularity and bony destruction is seen involving the proximal metaphysis/diaphysis of the proximal phalanx of the right third toe which corresponds to the areas of osteomyelitis seen on the patient's MRI examination. Extensive vascular calcifications are noted. Mild to moderate degenerative changes are seen throughout the remaining interphalangeal joints of the right foot along with seen first MTP joint and first tarsometatarsal joint. Impression: Findings are again seen consistent with osteomyelitis involving the proximal phalanx of the right third toe. Assessment/Plan Assessment/Plan Assessment/Plan: 1. Peripheral arterial disease with recent history of TELEGRAPH OFFICE MANAGER of right anterior tibial artery 1 month ago. Now, arterial ultrasound indicates reocclusion. Patient has declining wound healing to previous toe amputation sites to the right foot with progressive gangrenous tissue changes now involving the right third toe as well as cellulitis of the forefoot and osteomyelitis of the proximal phalanx of the right third toe. - Patient awaiting peripheral arteriogram once INR improved. Remains elevated at 2.5. Patient states his last dose was [address] Alcocer has ordered Vitamin K. - Continue antiplatelet therapy on Aspirin. - Revascularization plan to right lower extremity to be determined once results of arteriogram reviewed. The concern is that previous TELEGRAPH OFFICE MANAGER to right anterior tibial artery failed with rapid progressive decline in the appearance of the right foot amputation sites as well as new necrotic gangrenous tissue changes with osteomyelitis involving the right third toe. This patient may require surgical revascularization with bypass. The patient has had previous saphenous vein harvest to both legs for CABG in 2004 with prolonged wound healing. Additionally, the patient has a reported history of DVT to RLE. Conduit may be an issue. Will obtain vein mapping. - Consider CT angiogram versus arteriogram. 2. Osteomyelitis of right third toe. Infectious disease consulted and providing IV antibiotic therapy. The toe will need to be amputated as well as further wound debridement to the non-healing amputation sites of the fourth and fifth toes. Revascularization will need to be addressed prior to amputation for wound healing as well as improvement in cellulitis. 3. Chronic kidney disease. Creatinine 1.4 today. IV fluids in place for hydration. Will add Acetylcysteine dosing to start now. 4. Chronic anemia related to chronic disease states. Treat medically and follow closely. 5. History of DVT to right lower extremity with possible PE. On chronic anticoagulation with Warfarin. On hold for now for arteriogram. 6. Diabetes mellitus with peripheral neuropathy and history of delayed wound healing. Keep tight control on glucose levels. Management per IPC. Thank you for the opportunity to participate in the care of this gentleman. I have spoke directly with Dr. Alcocer and Dr. Helm regarding this patient and the clinical findings. I will review the details of this case with Dr. Enrrique Keller or one of his partners for further recommendations. The patient and his have had their questions addressed and understand the current plan of care. ENRRIQUE KELLER II, MD 11/27/16 8818: CONSULT Allergies Allergies: Coded Allergies: Penicillins (Verified Allergy, Severe, Anaphylaxis, 11/26/16) SWELLING OF LIPS AND AIRWAY. TOLERATES MERREM simvastatin (Unverified Adverse Reaction, Intermediate, MUSCLE ACHES, 09/29) Assessment/Plan Assessment/Plan I agree with above assessment and plan. Angios reviewed from September. Acceptable PT which reconstitutes from peroneal collaterals. Appears to be adequate residual right great and proximal small saphenous veins for conduit. Will cancel the angiogram as the arterial duplex exam shows patency of the PT artery. Discussed with patient and patients . EIMLIA GOMEZ APRN Nov 27, 2016 13:25 ENRRIQUE KELLER II, MD Nov 27, 2016 17:17
[2016-11-27] MEDS: ACETYLCYSTEINE 20% ORAL SOLN 600 MG/3 ML SYRINGE. PO SCH ×2 (14:16→21:46)
[2016-11-27] MEDS: MICAFUNGIN 100 MG in IV DEXTROSE 5% 100 ML IV SCH (14:16)
--- NOTE | 2016-11-27 14:24 | EKG ---
[facility] [address] [place] [address] Test Date: 2016-11-27 Test Time: 13:54:56 Pat Name: ERSATO ARNOLD Department: Room: 2 Gender: M Sales Enablement Manager: JOSHUA : 1940 Requested By: ASHA TANNER Order Number: [id number] Reading MD: Allen Hull Measurements Intervals Chancellor Rate: 60 P: 35 FL: 216 QRS: -27 QRSD: 116 T: 33 QT: 458 QTc: 463 Interpretive Statements SINUS RHYTHM LEFTWARD AXIS R-S TRANSITION ZONE IN V LEADS DISPLACED TO THE LEFT OTHERWISE NORMAL ECG Electronically Signed On 12-21-2016 14:16:03 [employer] F[employer] by Allen Hull
[2016-11-27 15:20] VITALS: BP 142/68
--- NOTE | 2016-11-27 16:53 | PDOC ---
PROGRESS NOTES Chief Complaint Chief Complaint 1. 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 dm2 on insulin 4. H/O CAD post CAG 5. HTN 6. HLD 7. OBesity 8. recent PAD right tibial A POST balloon 9. normacytic anemia 10. CKD4 11. H/O DVT OF right leg on coumadin History of Present Illness History of Present Illness Pt seen and examined. LETICIA Rn LETICIA Vasc surg [employer] and Dr Johns and Docket Specialist Vitals Vitals Vital Signs Date Time Temp Pulse Resp B/P Pulse Ox O2 Delivery O2 Flow Rate FiO2 11/27/16 15:20 98.3 60 18 142/68 93 Room Air 98.3 Physical Exam General: Alert, Oriented X3, Cooperative, No acute distress Heart: Regular rate, Normal S1, Normal S2, No murmurs Lungs: Clear, Other Abdomen: Normal bowel sounds, Soft, No tenderness, No masses Extremities: Other (Pulses: Palpable bilateral brachial, radial, femoral and popliteal pulses. Doppleable monophasic left dorsalis Doppleable right post tibial pulse. Unable to dopple or palpate right dorsalis pedal pulse. Right foot swollen with erythema of forefoot.) Skin: Other (Right foot swollen and with erythema to forefoot and lateral aspect of foot. Dry, black scabbed wound base to previously amputated fourth and fifth toes of the right foot. Black, necrotic third toe of right foot.) Labs LABS Laboratory Tests Test 11/26/16 20:56 11/27/16 05:35 11/27/16 07:27 11/27/16 10:10 Glucose (Fingerstick) 135mg/dL (70-99) 166mg/dL (70-99) 206mg/dL (70-99) White Blood Count 6.8x10^3/uL (4.0-11.0) Red Blood Count 3.29x10^6/uL (4.30-5.70) Hemoglobin 10.2g/dL (13.0-17.5) Hematocrit 28.8% (39.0-53.0) Mean Corpuscular Volume 88fL (79-100) Mean Corpuscular Hemoglobin 31pg (25-35) Mean Corpuscular Hemoglobin Concent 35g/dL (31-37) Red Cell Distribution Width 14.8% (11.5-14.5) Platelet Count 247x10^3/uL (140-400) Neutrophils (%) (Auto) 62% (31-73) Lymphocytes (%) (Auto) 24% (24-48) Monocytes (%) (Auto) 12% (0-9) Eosinophils (%) (Auto) 1% (0-3) Basophils (%) (Auto) 1% (0-3) Neutrophils # (Auto) 4.2x10^3uL (1.8-7.7) Lymphocytes # (Auto) 1.6x10^3/uL (1.0-4.8) Monocytes # (Auto) 0.8x10^3/uL (0.0-1.1) Eosinophils # (Auto) 0.1x10^3/uL (0.0-0.7) Basophils # (Auto) 0.0x10^3/uL (0.0-0.2) Prothrombin Time 25.4SEC (11.7-14.0) Prothromb Time International Ratio 2.5 (0.8-1.1) Sodium Level 136mmol/L (136-145) Potassium Level 4.1mmol/L (3.5-5.1) Chloride Level 103mmol/L (98-107) Carbon Dioxide Level 23mmol/L (21-32) Anion Gap 10 (6-14) Blood Urea Nitrogen 35mg/dL (8-26) Creatinine 1.4mg/dL (0.7-1.3) Estimated GFR (Cockcroft-Gault) 49.0 Glucose Level 177mg/dL (70-99) Calcium Level 7.9mg/dL (8.5-10.1) Review of Systems Review of Systems co pain co weakness Assessment and Plan Assessmemt and Plan Problems Medical Problems: (1) Cellulitis of right toe Status: Acute (2) Osteomyelitis Status: Acute (3) Peripheral vascular disease Status: Acute 1. 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 dm2 on insulin 4. H/O CAD post CAG 5. HTN 6. HLD 7. OBesity 8. recent PAD right tibial A POST balloon 9. normacytic anemia 10. CKD4 11. H/O DVT OF right leg on coumadin Plan Dr Beezley would prefer to consider vasc bypass then eventually the patient can have a toe amputation. Cont antibx Wound care Recheck labs May need to reverse INR if going to OR soon. For now, will just hold Coumadin. PTOT SNU eval for after discharge. Appreciate subspecialist input help. Problems: Comment Review of Relevant I have reviewed the following items gage (where applicable) has been applied. Labs Laboratory Tests Test 11/26/16 13:05 11/26/16 16:32 11/26/16 20:56 11/27/16 05:35 White Blood Count 8.8x10^3/uL (4.0-11.0) 6.8x10^3/uL (4.0-11.0) Red Blood Count 3.52x10^6/uL (4.30-5.70) 3.29x10^6/uL (4.30-5.70) Hemoglobin 10.7g/dL (13.0-17.5) 10.2g/dL (13.0-17.5) Hematocrit 31.3% (39.0-53.0) 28.8% (39.0-53.0) Mean Corpuscular Volume 89fL (79-100) 88fL (79-100) Mean Corpuscular Hemoglobin 30pg (25-35) 31pg (25-35) Mean Corpuscular Hemoglobin Concent 34g/dL (31-37) 35g/dL (31-37) Red Cell Distribution Width 14.7% (11.5-14.5) 14.8% (11.5-14.5) Platelet Count 268x10^3/uL (140-400) 247x10^3/uL (140-400) Neutrophils (%) (Auto) 72% (31-73) 62% (31-73) Lymphocytes (%) (Auto) 17% (24-48) 24% (24-48) Monocytes (%) (Auto) 11% (0-9) 12% (0-9) Eosinophils (%) (Auto) 1% (0-3) 1% (0-3) Basophils (%) (Auto) 1% (0-3) 1% (0-3) Neutrophils # (Auto) 6.3x10^3uL (1.8-7.7) 4.2x10^3uL (1.8-7.7) Lymphocytes # (Auto) 1.5x10^3/uL (1.0-4.8) 1.6x10^3/uL (1.0-4.8) Monocytes # (Auto) 0.9x10^3/uL (0.0-1.1) 0.8x10^3/uL (0.0-1.1) Eosinophils # (Auto) 0.1x10^3/uL (0.0-0.7) 0.1x10^3/uL (0.0-0.7) Basophils # (Auto) 0.0x10^3/uL (0.0-0.2) 0.0x10^3/uL (0.0-0.2) Erythrocyte Sedimentation Rate > 150 (0-15) Sodium Level 139mmol/L (136-145) 136mmol/L (136-145) Potassium Level 4.1mmol/L (3.5-5.1) 4.1mmol/L (3.5-5.1) Chloride Level 101mmol/L (98-107) 103mmol/L (98-107) Carbon Dioxide Level 30mmol/L (21-32) 23mmol/L (21-32) Anion Gap 8 (6-14) 10 (6-14) Blood Urea Nitrogen 40mg/dL (8-26) 35mg/dL (8-26) Creatinine 1.7mg/dL (0.7-1.3) 1.4mg/dL (0.7-1.3) Estimated GFR (Cockcroft-Gault) 39.2 49.0 Glucose Level 94mg/dL (70-99) 177mg/dL (70-99) Calcium Level 8.4mg/dL (8.5-10.1) 7.9mg/dL (8.5-10.1) C-Reactive Protein, Quantitative 116.6mg/L (0-3.3) Glucose (Fingerstick) 73mg/dL (70-99) 135mg/dL (70-99) Prothrombin Time 25.4SEC (11.7-14.0) Prothromb Time International Ratio 2.5 (0.8-1.1) Test 11/27/16 07:27 2/6/17 10:10 Glucose (Fingerstick) 166mg/dL (70-99) 206mg/dL (70-99) Laboratory Tests Test 11/26/16 20:56 11/27/16 05:35 11/27/16 07:27 11/27/16 10:10 Glucose (Fingerstick) 135mg/dL (70-99) 166mg/dL (70-99) 206mg/dL (70-99) White Blood Count 6.8x10^3/uL (4.0-11.0) Red Blood Count 3.29x10^6/uL (4.30-5.70) Hemoglobin 10.2g/dL (13.0-17.5) Hematocrit 28.8% (39.0-53.0) Mean Corpuscular Volume 88fL (79-100) Mean Corpuscular Hemoglobin 31pg (25-35) Mean Corpuscular Hemoglobin Concent 35g/dL (31-37) Red Cell Distribution Width 14.8% (11.5-14.5) Platelet Count 247x10^3/uL (140-400) Neutrophils (%) (Auto) 62% (31-73) Lymphocytes (%) (Auto) 24% (24-48) Monocytes (%) (Auto) 12% (0-9) Eosinophils (%) (Auto) 1% (0-3) Basophils (%) (Auto) 1% (0-3) Neutrophils # (Auto) 4.2x10^3uL (1.8-7.7) Lymphocytes # (Auto) 1.6x10^3/uL (1.0-4.8) Monocytes # (Auto) 0.8x10^3/uL (0.0-1.1) Eosinophils # (Auto) 0.1x10^3/uL (0.0-0.7) Basophils # (Auto) 0.0x10^3/uL (0.0-0.2) Prothrombin Time 25.4SEC (11.7-14.0) Prothromb Time International Ratio 2.5 (0.8-1.1) Sodium Level 136mmol/L (136-145) Potassium Level 4.1mmol/L (3.5-5.1) Chloride Level 103mmol/L (98-107) Carbon Dioxide Level 23mmol/L (21-32) Anion Gap 10 (6-14) Blood Urea Nitrogen 35mg/dL (8-26) Creatinine 1.4mg/dL (0.7-1.3) Estimated GFR (Cockcroft-Gault) 49.0 Glucose Level 177mg/dL (70-99) Calcium Level 7.9mg/dL (8.5-10.1) Medications Current Medications Vancomycin HCl 1 each 1 each PRN DAILY PRN MC SEE COMMENTS; Start 11/26/16 at 12 :45; Stop 11/26/16 at 13:30; Status DC Sodium Chloride 500 ml @ 500 mls/hr 1X ONCE IV Last administered on 11/26/16 14:52; Start 11/26/16 at 12:45; Stop 11/26/16 at 13:44; Status DC Vancomycin HCl/ Sodium Chloride (Iv Sodium Chloride 0.9% 500ml Bag) 500 ml @ 250 mls/hr 1X ONCE IV Last administered on 11/26/16 13:09; Start 11/26/16 at 13 :00; Stop 11/26/16 at 14:59; Status DC Ondansetron HCl (Zofran) 4 mg PRN Q8HRS PRN IV NAUSEA/VOMITING; Start 11/26/16 at 12:45; Stop 11/26/16 at 15:59; Status DC Morphine Sulfate 2 mg 2 mg PRN Q2HR PRN IV PAIN; Start 11/26/16 at 12:45; Stop 11/27/16 at 12:44; Status DC Sodium Chloride 1,000 ml @ 125 mls/hr Q8H IV Last administered on 11/27/16 05: 57; Start 11/26/16 at 12:43; Stop 11/27/16 at 12:42; Status DC Meropenem 500 mg/ Sodium Chloride 50 ml @ 100 mls/hr Q6HRS IV Last administered on 11/27/16 13:08; Start 11/26/16 at 14:00 Micafungin Sodium 100 mg/Dextrose 100 ml @ 100 mls/hr Q24H IV Last administered on 11/27/16 14:16; Start 11/26/16 at 14:00 Linezolid (Zyvox Premix) 300 ml @ 300 mls/hr Q12HR IV Last administered on 11/27 11:54; Start 11/26/16 at 14:00 Acetaminophen (Tylenol) 650 mg PRN Q6HRS PRN PO MILD PAIN / TEMP; Start at 15:45 Ondansetron HCl (Zofran) 4 mg PRN Q6HRS PRN IV NAUSEA/VOMITING; Start 11/26/16 at 15:45 Acetaminophen/ Hydrocodone Bitart (Lortab 5/325) 1 tab PRN Q4HRS PRN PO PAIN; Start 11/26/16 at 15:45 Insulin Aspart (Novolog) 0-9 UNITS TIDWMEALS SQ Last administered on 11/27/16 11:52; Start 11/26/16 at 17:00 Dextrose 12.5 gm PRN Q15MIN PRN IV SEE COMMENTS; Start 11/26/16 at 15:45 Aspirin ([place]arrison Aspirin) 325 mg DAILY PO ; Start 11/27/16 at 09:00 Carvedilol (Coreg) 6.25 mg BIDWMEALS PO Last administered on 11/27/16 08:00; Start 11/26/16 at 17:00 Sodium Bicarbonate (Sodium Bicarbonate) 650 mg BID PO Last administered on 11:55; Start 11/26/16 at 21:00 Escitalopram Oxalate (Lexapro) 20 mg DAILY PO Last administered on 11/27/16 11: 55; Start 11/27/16 at 09:00 Non-Formulary Medication 40 unit HS SQ ; Start 11/26/16 at 21:00; Stop 11/26/16 at 21:00; Status DC Non-Formulary Medication 14 unit TIDAC SQ ; Start 11/26/16 at 16:30; Stop at 16:30; Status DC Fish Oil (Fish Oil) 1,000 mg DAILY PO Last administered on 11/27/16 11:55; Start 11/27/16 at 09:00 Hydrochlorothiazide (Microzide) 12.5 mg DAILY PO Last administered on 11/27/16 11:55; Start 11/27/16 at 09:00 Insulin Detemir (Levemir) 40 units QHS SQ Last administered on 11/26/16 21:19; Start 11/26/16 at 21:00 Insulin Aspart (Novolog) 10 units TIDWMEALS SQ Last administered on 11/27/16 11 :53; Start 11/26/16 at 17:00 Losartan Potassium (Cozaar) 100 mg DAILY PO Last administered on 11/27/16 11:54 ; Start 11/27/16 at 09:00 Acetylcysteine (Mucomyst 20% Oral Solution) 600 mg BID PO Last administered on 11/27/16 14:16; Start 11/27/16 at 12:45; Stop 11/28/16 at 22:00 Ondansetron HCl (Zofran) 4 mg PRN Q6HRS PRN IV Nausea; Start 11/28/16 at 07:00; Stop 11/28/16 at 23:00 Fentanyl Citrate (Fentanyl 2ml Vial) 25 mcg PRN Q5MIN PRN IV MILD PAIN; Start 11/28/16 at 07:00; Stop 11/28/16 at 23:00 Fentanyl Citrate (Fentanyl 2ml Vial) 50 mcg PRN Q5MIN PRN IV MODERATE PAIN; Start 11/28/16 at 07:00; Stop 11/28/16 at 23:00 Morphine Sulfate 1 mg 1 mg PRN Q10MIN PRN IV SEVERE PAIN; Start 11/28/16 at 07: 00; Stop 11/28/16 at 23:00 Lactated Ringer's (Iv Lactated Ringers) 1,000 ml @ 0 mls/hr Q0M IV ; Start 11/28 at 07:00; Stop 11/28/16 at 18:59 Lidocaine HCl 2 ml 1X PRN PRN ID IV START; Start 11/28/16 at 07:00; Stop at 06:59 Hydromorphone HCl (Dilaudid) 0.5 mg PRN Q10MIN PRN IV SEVERE PAIN, Second choice; Start 11/28/16 at 07:00; Stop 11/28/16 at 23:00 Prochlorperazine Edisylate (Compazine) 5 mg PACU PRN PRN IV NAUSEA; Start at 07:00; Stop 11/28/16 at 23:00 Active Scripts Active Reported Valsartan-Hctz 160-12.5 Mg Tab (Valsartan/Hydrochlorothiazide) 1 Each Tablet 1 Each PO DAILY Fish Oil 1,200 Mg Softgel ([place]-3 Fatty Acids/Fish Oil) 1 Each Capsule 1 Each PO BID Humalog (Insulin Lispro) 100 Unit/1 Ml Insuln.pen 14 Unit SQ TIDAC Lantus (Insulin Glargine,Hum.rec.anlog) 100 Unit/1 Ml Vial 40 Unit SQ HS Sodium Bicarbonate 650 Mg Tablet 1 Tab PO BID Aspirin 325 Mg Tablet 325 Mg PO Warfarin Sodium 5 Mg Tablet 5 Mg PO DAILY Coreg (Carvedilol) 6.25 Mg Tablet 6.25 Mg PO BIDWMEALS Lexapro (Escitalopram Oxalate) 20 Mg Tablet 20 Mg PO DAILY Vitals/I & O Vital Sign - Last 24 Hours 11/26/16 11/26/16 11/26/16 11/26/16 17:12 19:00 20:00 23:16 Temp 97.6 97.7 97.6 97.7 Pulse 77 62 59 Resp 18 20 B/P 133/76 116/54 139/61 Pulse Ox 93 92 O2 Delivery Room Air Room Air Room Air 11/27/16 11/27/16 11/27/16 11/27/16 03:21 07:00 08:00 11:07 Temp 97.5 98.2 98.5 97.5 98.2 98.5 Pulse 58 68 67 67 Resp 18 22 20 B/P 129/62 174/92 155/70 155/70 Pulse Ox 96 95 92 O2 Delivery Room Air Room Air Room Air 11/27/16 11/27/16 11:54 15:20 Temp 98.3 98.3 Pulse 67 60 Resp 18 B/P 155/70 142/68 Pulse Ox 93 O2 Delivery Room Air Intake and Output 11/26/16 11/26/16 11/27/16 15:00 23:00 07:00 Intake Total 146 ml 360 ml 1450 ml Output Total 400 ml 200 ml Balance 146 ml -40 ml 1250 ml JORDAN GRIMM III DO Nov 27, 2016 16:53
--- NOTE | 2016-11-27 17:15 | RAD ---
Bilateral lower extremity vein mapping, 11/27/2016: History: Graft harvest planning for CABG Grayscale evaluation of the saphenous veins in both lower extremity was performed. The right greater saphenous vein in the thigh is patent measuring 3.8 to 6.8 mm. In the lower leg that vein is absent, apparently previously harvested. The right lesser saphenous vein is patent measuring 2.7 to 3.4 mm. On the left, the greater saphenous vein in the thigh is patent measuring 2.6 to 6.3 mm. In the lower leg it has apparently been surgically harvested. The left lesser saphenous vein is patent measuring 2.2 to 3.1 mm. IMPRESSION: Patent greater saphenous veins in the thighs and patent lesser saphenous veins in the lower legs as described above, with measurements fully delineated on the technologist worksheet available in the [employer] PACS system.
--- NOTE | 2016-11-27 18:10 | CONS ---
DATE OF CONSULTATION: 11/26/2016 REFERRING PROVIDER: ____. CONSULTING PROVIDER: Dae Mckeon MD. REASON FOR CONSULTATION: Right third toe osteomyelitis. CHIEF COMPLAINT: Right foot pain. HISTORY OF PRESENT ILLNESS: The patient is a very pleasant 76-year-old gentleman who underwent a fourth and fifth toe amputation with podiatry in September. He subsequently underwent a percutaneous transluminal angioplasty of chronic anterior tibial conclusion a couple of weeks ago, who tells me that his third toe has been getting progressively darker. He does have some pain, although not too much. He denies any loss of sensation in his feet. Denies any other wounds elsewhere. He denies any fevers or chills. No other complaints or concerns. ALLERGIES: PENICILLIN, SIMVASTATIN. MEDICATIONS: Reviewed, please see MRAD. PAST MEDICAL HISTORY: 1. Peripheral vascular disease. 2. Right fourth and fifth toe amputation with Dr. Gerard. 3. CABG x 5. 4. Bilateral cataracts. 5. Tonsillectomy. 6. Hypercholesterolemia, coronary artery disease, osteomyelitis. 7. History of renal failure. SOCIAL HISTORY: Uses alcohol occasionally. No tobacco. REVIEW OF SYSTEMS: Twelve point review of systems negative except as per HPI. FAMILY HISTORY: Noncontributory. PHYSICAL EXAMINATION: VITAL SIGNS: Reviewed. Temperature 97.9, pulse 77, respiratory rate 20, BP ____/76, O2 sats 98% on room air. GENERAL: The patient is alert and oriented. His speech is clear. Mood and affect are appropriate. He is examined lying in hospital bed. HEENT: Head, normocephalic, atraumatic. Extraocular muscles are intact. CARDIOVASCULAR: Regular rate and rhythm. No edema at his ankles. LUNGS: Respirations are unlabored with symmetric chest rise. ABDOMEN: Soft, nondistended. EXTREMITIES: Examination of left lower extremity reveals no wounds. Toes are warm. He can wiggle his toes. Normal sensation to light touch. Dorsalis pedis weakly palpable. Examination of right lower extremity reveals an approximately 6 x 2 cm wound with some surrounding erythema, but no obvious purulent drainage lateral column of his foot. His third toe was dark in color. The remainder of his toes, the first and second are cool to touch. He can wiggle his toes. I am not able to palpate the dorsalis pedis or posterior tibial artery arterial pulse. He does have a large medial incision in his calf from a vein harvest. REVIEW OF IMAGING STUDIES: 1. Foot x-ray as well as the report was reviewed. He has evidence of osteomyelitis in his third toe. 2. Duplex scan of his right lower extremity was reviewed. He has evidence of right anterior tibial artery and right dorsalis pedis arterial occlusion now without any evidence of hemodynamically significant stenosis. IMPRESSION: 1. Peripheral vascular disease. 2. Recent fourth and fifth toe amputation. 3. Right third toe osteomyelitis and necrosis. PLAN: I did discuss with this gentleman that is likely surgical procedure in the form of an amputation, most likely transmet or BKA. I did discuss this with him. I did tell him that I would like Vascular Surgery input. We will await their input to see if there is any type of salvage that can be done for this gentleman's arterial system. DAE MCKEON MD DR: LILIAM/earnest JOB#: [id number] / [id number] ANUEL
[2016-11-27 19:00] VITALS: BP 136/60
[2016-11-27] MEDS: INSULIN DETEMIR 300 UNITS/3 ML INSULN.PEN. SQ SCH (22:08)
[2016-11-27 23:31] VITALS: BP 152/65
[2016-11-28] MEDS: MEROPENEM 500 MG in IV NORMAL SALINE 50ML 50 ML IV SCH ×5 (00:18→23:15)
[2016-11-28 03:01] VITALS: BP 168/97
[2016-11-28 07:00] VITALS: BP 158/81
[2016-11-28] MEDS ORDERED: HYDROMORPHONE 2 MG/ML VIAL. IV PRN (07:00)
[2016-11-28] MEDS ORDERED: ONDANSETRON PF 4 MG/2 ML VIAL. IV PRN (07:00)
[2016-11-28] MEDS ORDERED: PROCHLORPERAZINE 10 MG/2 ML VIAL. IV PRN (07:00)
[2016-11-28] MEDS ORDERED: FENTANYL PF 100 MCG/2 ML VIAL. IV PRN ×2 (07:00)
[2016-11-28] MEDS ORDERED: LIDOCAINE 1% 1 ML SYRINGE. ID PRN (07:00)
[2016-11-28] MEDS ORDERED: IV RINGERS,LACTATED 1000ML 1,000 ML IV SCH (07:00)
[2016-11-28] MEDS ORDERED: MORPHINE SULFATE 2 MG/ML DISP.SYRIN. IV PRN (07:00)
[2016-11-28] MEDS: INSULIN ASPART 300 UNITS/3 ML INSULN.PEN SQ SCH ×6 (08:00→16:44)
[2016-11-28] MEDS: ESCITALOPRAM 10 MG TABLET. PO SCH (08:38)
[2016-11-28] MEDS: ASPIRIN 325 MG TABLET PO SCH (08:38)
[2016-11-28] MEDS: HYDROCHLOROTHIAZIDE 12.5 MG CAPSULE. PO SCH (08:38)
[2016-11-28] MEDS: CARVEDILOL 6.25 MG TABLET PO SCH (08:40)
[2016-11-28] MEDS: OMEGA-3 FATTY ACIDS/FISH OIL 1,000 MG CAPSULE. PO SCH (08:40)
[2016-11-28] MEDS: SODIUM BICARBONATE 650 MG TABLET. PO SCH ×2 (08:40→22:07)
[2016-11-28] MEDS: LOSARTAN POTASSIUM 50 MG TABLET. PO SCH (08:41)
[2016-11-28] MEDS: ACETYLCYSTEINE 20% ORAL SOLN 600 MG/3 ML SYRINGE. PO SCH ×2 (08:46→22:07)
--- NOTE | 2016-11-28 08:49 | PDOC2 ---
CONSULT Date of Consult Date of Consult DATE: 11/28/16 TIME: 08:43 Reason for Consult Reason for Consult: osteomyelitis 3rd MPJ Referring Physician Referring Physician: Leodan Identification/Chief Complaint Chief Complaint osteomyelitis 3rd digit and metatarsal head. status post partial 4th and 5th metatarsal resection with wound dehissence and delayed healing Source Source: Caregiver History of Present Illness Reason for Visit: 76 year old male status post partial 4th and 5th ray resection in September as well as endovascular enhancement by cardiology admitted for osteomyelitis 3rd metatarsal head and 3rd digit proximal phalanx also with peripheral vascular disease occluded Anterior tibial artery. Patient was being treated by home health with wound vac for delayed healing surgical site and noted cellulitis and cool digit. MRI was ordered which showed osteomyelitis to 3rd metatarsal head and digit as well as questionable residual osteomyelitis to 5th metatarsal distal. Patient was instructed to go to hospital for admission and IV antibiotics. He relates intermittent pain to right foot. He denies nausea, vomitting, fever, chills. Past Medical History Past Medical History history of peripheral arterial disease, history of type 2 diabetes, coronary artery disease, previous DVT, hypertension . Cardiovascular: CAD, HTN Past Surgical History Past Surgical History PAST SURGICAL HISTORY: Positive for CABG procedure as well as undergoing a SERVICE DESK ANALYST to total occlusion involving the right anterior tibial artery on 10/24/2016. status post partial 4th and 5th ray amputation Family History Family History: Coronary Artery Disease, Diabetes Social History No ALCOHOL: none Drugs: None Lives: with Family Current Problem List Problem List Problems Medical Problems: (1) Cellulitis of right toe Status: Acute (2) Osteomyelitis Status: Acute (3) Peripheral vascular disease Status: Acute Current Medications Current Medications Current Medications Vancomycin HCl 1 each 1 each PRN DAILY PRN MC SEE COMMENTS; Start 11/26/16 at 12 :45; Stop 11/26/16 at 13:30; Status DC Sodium Chloride 500 ml @ 500 mls/hr 1X ONCE IV Last administered on 11/26/16 14:52; Start 11/26/16 at 12:45; Stop 11/26/16 at 13:44; Status DC Vancomycin HCl/ Sodium Chloride (Iv Sodium Chloride 0.9% 500ml Bag) 500 ml @ 250 mls/hr 1X ONCE IV Last administered on 11/26/16 13:09; Start 11/26/16 at 13 :00; Stop 11/26/16 at 14:59; Status DC Ondansetron HCl (Zofran) 4 mg PRN Q8HRS PRN IV NAUSEA/VOMITING; Start 11/26/16 at 12:45; Stop 11/26/16 at 15:59; Status DC Morphine Sulfate 2 mg 2 mg PRN Q2HR PRN IV PAIN; Start 11/26/16 at 12:45; Stop 11/27/16 at 12:44; Status DC Sodium Chloride 1,000 ml @ 125 mls/hr Q8H IV Last administered on 11/27/16 05: 57; Start 11/26/16 at 12:43; Stop 11/27/16 at 12:42; Status DC Meropenem 500 mg/ Sodium Chloride 50 ml @ 100 mls/hr Q6HRS IV Last administered on 11/28/16 06:16; Start 11/26/16 at 14:00 Micafungin Sodium 100 mg/Dextrose 100 ml @ 100 mls/hr Q24H IV Last administered on 11/27/16 14:16; Start 11/26/16 at 14:00 Linezolid (Zyvox Premix) 300 ml @ 300 mls/hr Q12HR IV Last administered on 11/27 21:48; Start 11/26/16 at 14:00 Acetaminophen (Tylenol) 650 mg PRN Q6HRS PRN PO MILD PAIN / TEMP; Start at 15:45 Ondansetron HCl (Zofran) 4 mg PRN Q6HRS PRN IV NAUSEA/VOMITING; Start 11/26/16 at 15:45 Acetaminophen/ Hydrocodone Bitart (Lortab 5/325) 1 tab PRN Q4HRS PRN PO PAIN; Start 11/26/16 at 15:45 Insulin Aspart (Novolog) 0-9 UNITS TIDWMEALS SQ Last administered on 11/27/16 17:55; Start 11/26/16 at 17:00 Dextrose 12.5 gm PRN Q15MIN PRN IV SEE COMMENTS; Start 11/26/16 at 15:45 Aspirin (Harrison Aspirin) 325 mg DAILY PO ; Start 11/27/16 at 09:00 Carvedilol (Coreg) 6.25 mg BIDWMEALS PO Last administered on 11/27/16 17:47; Start 11/26/16 at 17:00 Sodium Bicarbonate (Sodium Bicarbonate) 650 mg BID PO Last administered on 21:46; Start 11/26/16 at 21:00 Escitalopram Oxalate (Lexapro) 20 mg DAILY PO Last administered on 11/27/16 11: 55; Start 11/27/16 at 09:00 Non-Formulary Medication 40 unit HS SQ ; Start 11/26/16 at 21:00; Stop 11/26/16 at 21:00; Status DC Non-Formulary Medication 14 unit TIDAC SQ ; Start 11/26/16 at 16:30; Stop at 16:30; Status DC Fish Oil (Fish Oil) 1,000 mg DAILY PO Last administered on 11/27/16 11:55; Start 11/27/16 at 09:00 Hydrochlorothiazide (Microzide) 12.5 mg DAILY PO Last administered on 11/27/16 11:55; Start 11/27/16 at 09:00 Insulin Detemir (Levemir) 40 units QHS SQ Last administered on 11/27/16 22:08; Start 11/26/16 at 21:00 Insulin Aspart (Novolog) 10 units TIDWMEALS SQ Last administered on 11/27/16 17 :54; Start 11/26/16 at 17:00 Losartan Potassium (Cozaar) 100 mg DAILY PO Last administered on 11/27/16 11:54 ; Start 11/27/16 at 09:00 Acetylcysteine (Mucomyst 20% Oral Solution) 600 mg BID PO Last administered on 11/27/16 21:46; Start 11/27/16 at 12:45; Stop 11/28/16 at 22:00 Ondansetron HCl (Zofran) 4 mg PRN Q6HRS PRN IV Nausea; Start 11/28/16 at 07:00; Stop 11/28/16 at 23:00 Fentanyl Citrate (Fentanyl 2ml Vial) 25 mcg PRN Q5MIN PRN IV MILD PAIN; Start 11/28/16 at 07:00; Stop 11/28/16 at 23:00 Fentanyl Citrate (Fentanyl 2ml Vial) 50 mcg PRN Q5MIN PRN IV MODERATE PAIN; Start 11/28/16 at 07:00; Stop 11/28/16 at 23:00 Morphine Sulfate 1 mg 1 mg PRN Q10MIN PRN IV SEVERE PAIN; Start 11/28/16 at 07: 00; Stop 11/28/16 at 23:00 Lactated Ringer's (Iv Lactated Ringers) 1,000 ml @ 0 mls/hr Q0M IV ; Start 11/28 at 07:00; Stop 11/28/16 at 18:59 Lidocaine HCl 2 ml 1X PRN PRN ID IV START; Start 11/28/16 at 07:00; Stop at 06:59 Hydromorphone HCl (Dilaudid) 0.5 mg PRN Q10MIN PRN IV SEVERE PAIN, Second choice; Start 11/28/16 at 07:00; Stop 11/28/16 at 23:00 Prochlorperazine Edisylate (Compazine) 5 mg PACU PRN PRN IV NAUSEA; Start at 07:00; Stop 11/28/16 at 23:00 Active Scripts Active Reported Valsartan-Hctz 160-12.5 Mg Tab (Valsartan/Hydrochlorothiazide) 1 Each Tablet 1 Each PO DAILY Fish Oil 1,200 Mg Softgel (Alamo-3 Fatty Acids/Fish Oil) 1 Each Capsule 1 Each PO BID Humalog (Insulin Lispro) 100 Unit/1 Ml Insuln.pen 14 Unit SQ TIDAC Lantus (Insulin Glargine,Hum.rec.anlog) 100 Unit/1 Ml Vial 40 Unit SQ HS Sodium Bicarbonate 650 Mg Tablet 1 Tab PO BID Aspirin 325 Mg Tablet 325 Mg PO Warfarin Sodium 5 Mg Tablet 5 Mg PO DAILY Coreg (Carvedilol) 6.25 Mg Tablet 6.25 Mg PO BIDWMEALS Lexapro (Escitalopram Oxalate) 20 Mg Tablet 20 Mg PO DAILY Allergies Allergies: Coded Allergies: Penicillins (Verified Allergy, Severe, Anaphylaxis, 11/26/16) SWELLING OF LIPS AND AIRWAY. TOLERATES MERREM simvastatin (Unverified Adverse Reaction, Intermediate, MUSCLE ACHES, 09/29) ROS General: No: Appetite, Chills, Fatigue, Malaise, Night Sweats, Other PSYCHOLOGICAL ROS: No: Anxiety, Behavioral Disorder, Concentration difficultie , Decreased libido, Depression, Disorientation, Hallucinations, Hostility, Irritablity, Memory difficulties, Mood Swings, Obsessive thoughts, Other, Physical abuse, Sexual abuse, Sleep disturbances, Suicidal ideation Eyes: No Blurry vision, No Decreased vision, No Double vision, No Dry eyes, No Excessive tearing, No Eye Pain, No Itchy Eyes, No Loss of vision, No Other, No Photophobia, No Scotomata, No Uses contacts, No Uses glasses HEENT: No: Epistaxis, Heacaches, Hearing change, Nasal congestion, Nasal discharge, Oral lesions, Other, Sinus pain, Sneezing, Snoring, Sore Throat, Tinnitus, Vertigo, Visual Changes, Vocal changes ALLERGY AND IMMUNOLOGY: No: Hives, Insect Bite Sensitivity, Itchy/Watery Eyes, Nasal Congestion, Other, Post Nasal Drip, Seasonal Allergies Hematological and Lymphatic: No: Bleeding Problems, Blood Clots, Blood Transfusions, Brusing, Night Sweats, Other, Pallor, Swollen Lymph Nodes ENDOCRINE: No: Breast Changes, Galactorrhea, Hair Pattern Changes, Hot Flashes , Malaise/lethargy, Mood Swings, Other, Palpitations, Polydipsia/polyuria, Skin Changes, Temperature Intolerance, Unexpected Weight Changes Breast: No New/Changing Breast Lumps, No Nipple changes, No Nipple discharge, No Other Respiratory: No: Cough, Hemoptysis, Orthopnea, Other, Pleuritic Pain, SOB with excertion, Shortness of breath, Sputum Changes, Stridor, Tachypnea, Wheezing Cardiovascular: yes Edema, No Chest Pain, No Lt Headedness, No Orthopnea, No Other, No Palpitations, No Paroxysmal Noc. Dyspnea Gastrointestinal: No Abdominal Pain, No Constipation, No Diarrhea, No Hematochezia, No Melena, No Nausea, No Other, No Vomiting Genitourinary: No , No , No , No , No , No , No , No Discharge, No Dysuria, No Flank Pain, No Frequency, No Hematuria, No Incontinence, No Other, No Pain, No Retention, No Urgency Musculoskeletal: No Gait Disturbance, No Joint Pain, No Joint Stiffness, No Joint Swelling, No Muscle Pain, No Muscular Weakness, No Other, No Pain In:, No Swelling In: Neurological: No Behavorial Changes, No Bowel/Bladder ControlChng, No Confusion , No Dizziness, No Gait Disturbance, No Headaches, No Impaired Coord/balance, No Memory Loss, No Numbness/Tingling, No Other, No Seizures, No Speech Problems , No Tremors, No Visual Changes, No Weakness Skin: Yes Other (gangrene 3rd toe right) Physical Exam Physical Exam Lower extremity: Skin is cool, xerotic, atrophic. note dry gangrene of 3rd toe right foot. status post partial 4th and 5th ray amputation with dry hemmorage/ eschar formation to wound dehissence site measures 4x3cm. Toes are cool to touch with delayed cft. non palpable pedal pulses. +edema right lower extremity. No active drainage. localized erythema to forefoot. sensation absent to light touch. muscle strength 5/5. General: Alert, Oriented X3 Vitals VITALS Vital Signs Date Time Temp Pulse Resp B/P Pulse Ox O2 Delivery O2 Flow Rate FiO2 11/28/16 07:00 98.1 70 18 158/81 95 Room Air 98.1 Labs Labs Laboratory Tests Test 11/26/16 13:05 11/26/16 16:32 11/26/16 20:56 11/27/16 05:35 White Blood Count 8.8x10^3/uL (4.0-11.0) 6.8x10^3/uL (4.0-11.0) Red Blood Count 3.52x10^6/uL (4.30-5.70) 3.29x10^6/uL (4.30-5.70) Hemoglobin 10.7g/dL (13.0-17.5) 10.2g/dL (13.0-17.5) Hematocrit 31.3% (39.0-53.0) 28.8% (39.0-53.0) Mean Corpuscular Volume 89fL (79-100) 88fL (79-100) Mean Corpuscular Hemoglobin 30pg (25-35) 31pg (25-35) Mean Corpuscular Hemoglobin Concent 34g/dL (31-37) 35g/dL (31-37) Red Cell Distribution Width 14.7% (11.5-14.5) 14.8% (11.5-14.5) Platelet Count 268x10^3/uL (140-400) 247x10^3/uL (140-400) Neutrophils (%) (Auto) 72% (31-73) 62% (31-73) Lymphocytes (%) (Auto) 17% (24-48) 24% (24-48) Monocytes (%) (Auto) 11% (0-9) 12% (0-9) Eosinophils (%) (Auto) 1% (0-3) 1% (0-3) Basophils (%) (Auto) 1% (0-3) 1% (0-3) Neutrophils # (Auto) 6.3x10^3uL (1.8-7.7) 4.2x10^3uL (1.8-7.7) Lymphocytes # (Auto) 1.5x10^3/uL (1.0-4.8) 1.6x10^3/uL (1.0-4.8) Monocytes # (Auto) 0.9x10^3/uL (0.0-1.1) 0.8x10^3/uL (0.0-1.1) Eosinophils # (Auto) 0.1x10^3/uL (0.0-0.7) 0.1x10^3/uL (0.0-0.7) Basophils # (Auto) 0.0x10^3/uL (0.0-0.2) 0.0x10^3/uL (0.0-0.2) Erythrocyte Sedimentation Rate > 150 (0-15) Sodium Level 139mmol/L (136-145) 136mmol/L (136-145) Potassium Level 4.1mmol/L (3.5-5.1) 4.1mmol/L (3.5-5.1) Chloride Level 101mmol/L (98-107) 103mmol/L (98-107) Carbon Dioxide Level 30mmol/L (21-32) 23mmol/L (21-32) Anion Gap 8 (6-14) 10 (6-14) Blood Urea Nitrogen 40mg/dL (8-26) 35mg/dL (8-26) Creatinine 1.7mg/dL (0.7-1.3) 1.4mg/dL (0.7-1.3) Estimated GFR (Cockcroft-Gault) 39.2 49.0 Glucose Level 94mg/dL (70-99) 177mg/dL (70-99) Calcium Level 8.4mg/dL (8.5-10.1) 7.9mg/dL (8.5-10.1) C-Reactive Protein, Quantitative 116.6mg/L (0-3.3) Glucose (Fingerstick) 73mg/dL (70-99) 135mg/dL (70-99) Prothrombin Time 25.4SEC (11.7-14.0) Prothromb Time International Ratio 2.5 (0.8-1.1) Test 11/27/16 07:27 11/27/16 10:10 11/27/16 17:01 11/27/16 20:39 Glucose (Fingerstick) 166mg/dL (70-99) 206mg/dL (70-99) 206mg/dL (70-99) 108mg/dL (70-99) Test 11/28/16 07:25 Glucose (Fingerstick) 112mg/dL (70-99) Laboratory Tests Test 11/27/16 10:10 11/27/16 17:01 11/27/16 20:39 11/28/16 07:25 Glucose (Fingerstick) 206mg/dL (70-99) 206mg/dL (70-99) 108mg/dL (70-99) 112mg/dL (70-99) Assessment/Plan Assessment/Plan 76 year old male with DM, peripheral vascular disease with gangrene 3rd toe, osteomyelitis residual to 5th metatarsal and to 3rd metatarsal head and proximal phalanx -MRI from 11/24/15 shows +osteomyelitis of 3rd metatarsal and proximal phalanx as well as questionable residual osteomyelitis to 5th metatarsal. Wound culture MSSA-infectious disease on consult continue IV antibiotics per recommendations -Vascular on consult-planning vascular enhancement with bypass, vein mapping ordered -Cancelled TMA scheduled today and will await further vascular enhancement prior to definitive procedure with attempted closure -Recommend light betadine gauze dressing and kerlex wrap once daily -Will continue to follow CINDA MORENO DPM Nov 28, 2016 08:49
--- NOTE | 2016-11-28 09:26 | CARD ---
APPROVED REPORT EXAM: Two-dimensional and M-mode echocardiogram with Doppler and color Doppler. Other Information Quality : Average Rhythm : NSR INDICATION Pre-Op 2D DIMENSIONS RVDd3.1 (2.9-3.5cm)Left Atrium(2D)4.4 (1.6-4.0cm) IVSd1.1 (0.7-1.1cm)Aortic Root(2D)3.3 (2.0-3.7cm) LVDd4.7 (3.9-5.9cm)LVOT Diameter2.1 (1.8-2.4cm) PWd1.1 (0.7-1.1cm)LVDs3.0 (2.5-4.0cm) FS (%) 36.7 %SV68.2 ml LVEF(%)66.5 (>50%) Aortic Valve AoV Peak Marlon.148.3cm/sAoV VTI35.0cm AO Peak GR.8.8mmHgLVOT Peak Marlon.100.7cm/s LVOT VTI 26.85cmAO Mean GR.5mmHg ROB (VMAX)2.57cd4UMX (VTI)2.76cm2 Mitral Valve MV E Peazxytc614.4cm/sMV DECEL EWCP707mi MV A Ppcsaten657.6cm/sMV APR32rm E/A Ratio1.3MVA (PHT)3.76cm2 TDI E/Lateral E'19.9E/Medial E'32.4 Tricuspid Valve TR P. Ndndfkpk807ed/sRAP LJCSJTTR3caPn TR Peak Gr.38qqIbYNUA23frMq Pulmonary Vein S1 Xwkiphcw71.9cm/sD2 Xgtawidi16.1cm/s PVa [id number] LEFT VENTRICLE The left ventricle is normal size. There is normal left ventricular wall thickness. Left ventricle sy stolic function is low normal. EF 50-55% Grossly normal wall motion. Limited evaluation due to subopt imal images. The left ventricular diastolic function and filling is normal for age. RIGHT VENTRICLE The right ventricle is normal size. The right ventricular systolic function is normal. ATRIA The left atrium size is normal. The right atrium size is normal. The interatrial septum is intact wit h no evidence for an atrial septal defect or patent foramen ovale as noted on 2-D or Doppler imaging. AORTIC VALVE The aortic valve is not well visualized but appears calcified with restricted leaflet motion. Doppler and Color Flow revealed no significant aortic regurgitation. There is no significant aortic valvular stenosis. MITRAL VALVE Mitral annular calcification is mild. There is no mitral valve stenosis. Doppler and Color Flow revea led no mitral valve regurgitation noted. TRICUSPID VALVE The tricuspid valve is normal in structure. Doppler and Color Flow revealed mild tricuspid regurgitat ion. The PA pressure was estimated at 40 mmHg. There is no tricuspid valve stenosis. PULMONIC VALVE Doppler and Color Flow revealed no pulmonic valvular regurgitation. There is no pulmonic valvular lambert nosis. GREAT VESSELS The aortic root is normal in size. Normal pulmonary venous flow (Doppler). The IVC is normal in size and collapses >50% with inspiration. PERICARDIAL EFFUSION There is no evidence of significant pericardial effusion. Critical Notification Critical Value: No <Conclusion> Left ventricle systolic function is low normal. EF 50-55% Grossly normal wall motion. Limited evaluation due to suboptimal images. Doppler and Color Flow revealed mild tricuspid regurgitation. The PA pressure was estimated at 40 mmH g.
--- NOTE | 2016-11-28 09:57 | PDOC ---
ORTHO PROGRESS NOTES Vitals Vital Signs Date Time Temp Pulse Resp B/P Pulse Ox O2 Delivery O2 Flow Rate FiO2 11/28/16 08:41 70 158/81 11/28/16 07:00 98.1 18 95 Room Air 98.1 Labs Laboratory Tests Test 11/26/16 13:05 11/26/16 16:32 11/26/16 20:56 11/27/16 05:35 White Blood Count 8.8x10^3/uL (4.0-11.0) 6.8x10^3/uL (4.0-11.0) Red Blood Count 3.52x10^6/uL (4.30-5.70) 3.29x10^6/uL (4.30-5.70) Hemoglobin 10.7g/dL (13.0-17.5) 10.2g/dL (13.0-17.5) Hematocrit 31.3% (39.0-53.0) 28.8% (39.0-53.0) Mean Corpuscular Volume 89fL (79-100) 88fL (79-100) Mean Corpuscular Hemoglobin 30pg (25-35) 31pg (25-35) Mean Corpuscular Hemoglobin Concent 34g/dL (31-37) 35g/dL (31-37) Red Cell Distribution Width 14.7% (11.5-14.5) 14.8% (11.5-14.5) Platelet Count 268x10^3/uL (140-400) 247x10^3/uL (140-400) Neutrophils (%) (Auto) 72% (31-73) 62% (31-73) Lymphocytes (%) (Auto) 17% (24-48) 24% (24-48) Monocytes (%) (Auto) 11% (0-9) 12% (0-9) Eosinophils (%) (Auto) 1% (0-3) 1% (0-3) Basophils (%) (Auto) 1% (0-3) 1% (0-3) Neutrophils # (Auto) 6.3x10^3uL (1.8-7.7) 4.2x10^3uL (1.8-7.7) Lymphocytes # (Auto) 1.5x10^3/uL (1.0-4.8) 1.6x10^3/uL (1.0-4.8) Monocytes # (Auto) 0.9x10^3/uL (0.0-1.1) 0.8x10^3/uL (0.0-1.1) Eosinophils # (Auto) 0.1x10^3/uL (0.0-0.7) 0.1x10^3/uL (0.0-0.7) Basophils # (Auto) 0.0x10^3/uL (0.0-0.2) 0.0x10^3/uL (0.0-0.2) Erythrocyte Sedimentation Rate > 150 (0-15) Sodium Level 139mmol/L (136-145) 136mmol/L (136-145) Potassium Level 4.1mmol/L (3.5-5.1) 4.1mmol/L (3.5-5.1) Chloride Level 101mmol/L (98-107) 103mmol/L (98-107) Carbon Dioxide Level 30mmol/L (21-32) 23mmol/L (21-32) Anion Gap 8 (6-14) 10 (6-14) Blood Urea Nitrogen 40mg/dL (8-26) 35mg/dL (8-26) Creatinine 1.7mg/dL (0.7-1.3) 1.4mg/dL (0.7-1.3) Estimated GFR (Cockcroft-Gault) 39.2 49.0 Glucose Level 94mg/dL (70-99) 177mg/dL (70-99) Calcium Level 8.4mg/dL (8.5-10.1) 7.9mg/dL (8.5-10.1) C-Reactive Protein, Quantitative 116.6mg/L (0-3.3) Glucose (Fingerstick) 73mg/dL (70-99) 135mg/dL (70-99) Prothrombin Time 25.4SEC (11.7-14.0) Prothromb Time International Ratio 2.5 (0.8-1.1) Test 11/27/16 07:27 11/27/16 10:10 11/27/16 17:01 11/27/16 20:39 Glucose (Fingerstick) 166mg/dL (70-99) 206mg/dL (70-99) 206mg/dL (70-99) 108mg/dL (70-99) Test 11/28/16 07:25 Glucose (Fingerstick) 112mg/dL (70-99) Laboratory Tests Test 11/27/16 10:10 11/27/16 17:01 11/27/16 20:39 11/28/16 07:25 Glucose (Fingerstick) 206mg/dL (70-99) 206mg/dL (70-99) 108mg/dL (70-99) 112mg/dL (70-99) Assessment and Plan I called and discussed this patient's care with his driller multiple spindle. Her and I spoke regarding the plan. She will take over his care as far as the foot is concerned. Her plan is for a transmetatarsal amputation if vascular can provide some increased blood flow to the foot and I think this is appropriate. I will sign off for now. Please let me know if I can be of any further assistance. SHAYY MCKEON II, MD Nov 28, 2016 09:57
[2016-11-28 10:40] VITALS: BP 147/72
--- NOTE | 2016-11-28 12:00 | PDOC ---
Infectious Disease Note Subjective Subjective Doing ok. Eating. Pain ok ROS ROS GEN: Denies fevers, chills, sweats HEENT: Denies blurred vision, sore throat CV: Denies chest pain RESP: Denies shortness of air, cough GI: Denies n/v/d NEURO: Denies confusion, dizziness MSK: Denies weakness, joint pain/swelling Vital Sign Vital Signs Vital Signs Date Time Temp Pulse Resp B/P Pulse Ox O2 Delivery O2 Flow Rate FiO2 11/28/16 10:40 97.8 62 18 147/72 92 Room Air 97.8 Physical Exam PHYSICAL EXAM GENERAL: NAD, Alert, coop HEENT: PERRL, OC/OP - clear NECK: Supple, no JVD, no LN LUNGS: Clear HEART: S1S2, no gallop, no murmur ABD: Soft, NT, no organomegaly, no rebound, Obese EXT: No edema, no cyanosis. Toe with yolk spray drier gangrene. Wound is dry LONG GOODS DRIER: Alert, oriented x 3, no focal neurologic deficit SKIN: No rash IV: ok Labs Lab Laboratory Tests Test 11/27/16 17:01 11/27/16 20:39 11/28/16 07:25 11/28/16 11:17 Glucose (Fingerstick) 206mg/dL (70-99) 108mg/dL (70-99) 112mg/dL (70-99) 176mg/dL (70-99) Micro IMPRESSION MRI 11/24 1. Findings are compatible with osteomyelitis involving the proximal phalanx of the 3rd toe, and possibly also at the 3rd metatarsal head. Marrow edema within the middle 3rd phalanx may just be reactive. 2. There is generalized soft tissue edema and muscle edema without drainable fluid collection or abscess. 3. Mild marrow edema and low T1 signal at the distal remnant of the 5th metatarsal could be related to the recent surgery, but mild osteomyelitis is not excludable here, particularly if there is an overlying ulceration. 4. Mild 3rd flexor tenosynovitis. Objective Assessment Wet Gangrene right 3 rd toe Staph aureus 2/2 PCN allergy H/o strep PAD - s/p Successful balloon SECURITY INCIDENT RESPONSE ENGINEER to chronic total occlusion involving the right anterior tibial artery. 10/24/16 Plan Plan of Care Cont Meropenem/Micafungin D/c Zyvox F/u labs in am and cults Await Surgery revascularization JAYLIN,DEVYN A MD Nov 28, 2016 12:00
--- NOTE | 2016-11-28 12:01 | PDOC ---
Infectious Disease Note Subjective Subjective Patient resting comfortably, has no complaints upon today's visit. States the discharge from the affected toe has stopped. ROS ROS GEN: Denies fevers, chills, sweats, no pain from affected toe HEENT: Denies blurred vision, sore throat CV: Denies chest pain RESP: Denies shortness of air, cough GI: Denies n/v/d NEURO: Denies confusion, dizziness MSK: Denies weakness, joint pain/swelling Vital Sign Vital Signs Vital Signs Date Time Temp Pulse Resp B/P Pulse Ox O2 Delivery O2 Flow Rate FiO2 11/28/16 10:40 97.8 62 18 147/72 92 Room Air 97.8 Physical Exam PHYSICAL EXAM GENERAL: NAD, Alert HEENT: PERRL, OC/OP NECK: Supple, no JVD, no LN LUNGS: Clear HEART: S1S2, no gallop, no murmur ABD: Soft, NT, no organomegaly, no rebound EXT: No edema, no cyanosis, third toe on right foot dry but remains gangrenous. CAREER SERVICES DIRECTOR: Alert, oriented x 3, no focal neurologic deficit SKIN: No rash IV: ok Labs Lab Laboratory Tests Test 11/27/16 17:01 11/27/16 20:39 11/28/16 07:25 11/28/16 11:17 Glucose (Fingerstick) 206mg/dL (70-99) 108mg/dL (70-99) 112mg/dL (70-99) 176mg/dL (70-99) Micro IMPRESSION MRI 11/24 1. Findings are compatible with osteomyelitis involving the proximal phalanx of the 3rd toe, and possibly also at the 3rd metatarsal head. Marrow edema within the middle 3rd phalanx may just be reactive. 2. There is generalized soft tissue edema and muscle edema without drainable fluid collection or abscess. 3. Mild marrow edema and low T1 signal at the distal remnant of the 5th metatarsal could be related to the recent surgery, but mild osteomyelitis is not excludable here, particularly if there is an overlying ulceration. 4. Mild 3rd flexor tenosynovitis. Objective Assessment Wet Gangrene right 3 rd toe Staph aureus 2/2 PCN allergy H/o strep PAD - s/p Successful balloon GREENHOUSE OR NURSERY TRANSPLANTER to chronic total occlusion involving the right anterior tibial artery. 10/24/16 Plan Plan of Care Cont Meropenem/Zyvox/Micafungin F/u labs in am and cults Await vascular evaluation DEVYN MOSQUEDA MD Nov 28, 2016 12:01
--- NOTE | 2016-11-28 13:20 | PDOC ---
PROGRESS NOTES Chief Complaint Chief Complaint 1. 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 dm2 on insulin 4. H/O CAD post CAG 5. HTN 6. HLD 7. peripheral artery disease 8 anemia of CKD 9. CKD4 10. H/O DVT OF right leg on coumadin History of Present Illness History of Present Illness Pt seen and examined. Vasc surg plan revasc before TM amputation cont abx discussed with ID consult Vitals Vitals Vital Signs Date Time Temp Pulse Resp B/P Pulse Ox O2 Delivery O2 Flow Rate FiO2 11/28/16 10:40 97.8 62 18 147/72 92 Room Air 97.8 Physical Exam General: Alert, Oriented X3, No acute distress Heart: Regular rate, Normal S1, Normal S2, No murmurs Lungs: Clear, Other Abdomen: Normal bowel sounds, Soft, No tenderness, No masses Extremities: Other (Pulses: Palpable bilateral brachial, radial, femoral and popliteal pulses. Doppleable monophasic left dorsalis Doppleable right post tibial pulse. Unable to dopple or palpate right dorsalis pedal pulse. Right foot swollen with erythema of forefoot.) Skin: Other (Right foot swollen and with erythema to forefoot and lateral aspect of foot. Dry, black scabbed wound base to previously amputated fourth and fifth toes of the right foot. Black, necrotic third toe of right foot.) Labs LABS Laboratory Tests Test 11/27/16 17:01 11/27/16 20:39 11/28/16 07:25 11/28/16 11:17 Glucose (Fingerstick) 206mg/dL (70-99) 108mg/dL (70-99) 112mg/dL (70-99) 176mg/dL (70-99) Assessment and Plan Assessmemt and Plan check INR now and in AM would be able to reverse with FFP for surg prior DVT, Problems Medical Problems: (1) Cellulitis of right toe Status: Acute (2) Osteomyelitis Status: Acute (3) Peripheral vascular disease Status: Acute Problems: Comment Review of Relevant I have reviewed the following items gage (where applicable) has been applied. Labs Laboratory Tests Test 11/26/16 16:32 11/26/16 20:56 11/27/16 05:35 11/27/16 07:27 Glucose (Fingerstick) 73mg/dL (70-99) 135mg/dL (70-99) 166mg/dL (70-99) White Blood Count 6.8x10^3/uL (4.0-11.0) Red Blood Count 3.29x10^6/uL (4.30-5.70) Hemoglobin 10.2g/dL (13.0-17.5) Hematocrit 28.8% (39.0-53.0) Mean Corpuscular Volume 88fL (79-100) Mean Corpuscular Hemoglobin 31pg (25-35) Mean Corpuscular Hemoglobin Concent 35g/dL (31-37) Red Cell Distribution Width 14.8% (11.5-14.5) Platelet Count 247x10^3/uL (140-400) Neutrophils (%) (Auto) 62% (31-73) Lymphocytes (%) (Auto) 24% (24-48) Monocytes (%) (Auto) 12% (0-9) Eosinophils (%) (Auto) 1% (0-3) Basophils (%) (Auto) 1% (0-3) Neutrophils # (Auto) 4.2x10^3uL (1.8-7.7) Lymphocytes # (Auto) 1.6x10^3/uL (1.0-4.8) Monocytes # (Auto) 0.8x10^3/uL (0.0-1.1) Eosinophils # (Auto) 0.1x10^3/uL (0.0-0.7) Basophils # (Auto) 0.0x10^3/uL (0.0-0.2) Prothrombin Time 25.4SEC (11.7-14.0) Prothromb Time International Ratio 2.5 (0.8-1.1) Sodium Level 136mmol/L (136-145) Potassium Level 4.1mmol/L (3.5-5.1) Chloride Level 103mmol/L (98-107) Carbon Dioxide Level 23mmol/L (21-32) Anion Gap 10 (6-14) Blood Urea Nitrogen 35mg/dL (8-26) Creatinine 1.4mg/dL (0.7-1.3) Estimated GFR (Cockcroft-Gault) 49.0 Glucose Level 177mg/dL (70-99) Calcium Level 7.9mg/dL (8.5-10.1) Test 11/27/16 10:10 11/27/16 17:01 11/27/16 20:39 11/28/16 07:25 Glucose (Fingerstick) 206mg/dL (70-99) 206mg/dL (70-99) 108mg/dL (70-99) 112mg/dL (70-99) Test 11/28/16 11:17 Glucose (Fingerstick) 176mg/dL (70-99) Laboratory Tests Test 11/27/16 17:01 11/27/16 20:39 11/28/16 07:25 11/28/16 11:17 Glucose (Fingerstick) 206mg/dL (70-99) 108mg/dL (70-99) 112mg/dL (70-99) 176mg/dL (70-99) Medications Current Medications Vancomycin HCl 1 each 1 each PRN DAILY PRN MC SEE COMMENTS; Start 11/26/16 at 12 :45; Stop 11/26/16 at 13:30; Status DC Sodium Chloride 500 ml @ 500 mls/hr 1X ONCE IV Last administered on 11/26/16 14:52; Start 11/26/16 at 12:45; Stop 11/26/16 at 13:44; Status DC Vancomycin HCl/ Sodium Chloride (Iv Sodium Chloride 0.9% 500ml Bag) 500 ml @ 250 mls/hr 1X ONCE IV Last administered on 11/26/16 13:09; Start 11/26/16 at 13 :00; Stop 11/26/16 at 14:59; Status DC Ondansetron HCl (Zofran) 4 mg PRN Q8HRS PRN IV NAUSEA/VOMITING; Start 11/26/16 at 12:45; Stop 11/26/16 at 15:59; Status DC Morphine Sulfate 2 mg 2 mg PRN Q2HR PRN IV PAIN; Start 11/26/16 at 12:45; Stop 11/27/16 at 12:44; Status DC Sodium Chloride 1,000 ml @ 125 mls/hr Q8H IV Last administered on 11/27/16 05: 57; Start 11/26/16 at 12:43; Stop 11/27/16 at 12:42; Status DC Meropenem 500 mg/ Sodium Chloride 50 ml @ 100 mls/hr Q6HRS IV Last administered on 11/28/16 12:36; Start 11/26/16 at 14:00 Micafungin Sodium 100 mg/Dextrose 100 ml @ 100 mls/hr Q24H IV Last administered on 11/27/16 14:16; Start 11/26/16 at 14:00 Linezolid (Zyvox Premix) 300 ml @ 300 mls/hr Q12HR IV Last administered on 11/28 08:38; Start 11/26/16 at 14:00; Stop 11/28/16 at 12:00; Status DC Acetaminophen (Tylenol) 650 mg PRN Q6HRS PRN PO MILD PAIN / TEMP; Start at 15:45 Ondansetron HCl (Zofran) 4 mg PRN Q6HRS PRN IV NAUSEA/VOMITING; Start 11/26/16 at 15:45 Acetaminophen/ Hydrocodone Bitart (Lortab 5/325) 1 tab PRN Q4HRS PRN PO PAIN; Start 11/26/16 at 15:45 Insulin Aspart (Novolog) 0-9 UNITS TIDWMEALS SQ Last administered on 11/28/16 12:43; Start 11/26/16 at 17:00 Dextrose 12.5 gm PRN Q15MIN PRN IV SEE COMMENTS; Start 11/26/16 at 15:45 Aspirin (Harrison Aspirin) 325 mg DAILY PO Last administered on 11/28/16 08:38; Start 11/27/16 at 09:00 Carvedilol (Coreg) 6.25 mg BIDWMEALS PO Last administered on 11/28/16 08:40; Start 11/26/16 at 17:00 Sodium Bicarbonate (Sodium Bicarbonate) 650 mg BID PO Last administered on 08:40; Start 11/26/16 at 21:00 Escitalopram Oxalate (Lexapro) 20 mg DAILY PO Last administered on 11/28/16 08: 38; Start 11/27/16 at 09:00 Non-Formulary Medication 40 unit HS SQ ; Start 11/26/16 at 21:00; Stop 11/26/16 at 21:00; Status DC Non-Formulary Medication 14 unit TIDAC SQ ; Start 11/26/16 at 16:30; Stop at 16:30; Status DC Fish Oil (Fish Oil) 1,000 mg DAILY PO Last administered on 11/28/16 08:40; Start 11/27/16 at 09:00 Hydrochlorothiazide (Microzide) 12.5 mg DAILY PO Last administered on 11/28/16 08:38; Start 11/27/16 at 09:00 Insulin Detemir (Levemir) 40 units QHS SQ Last administered on 11/27/16 22:08; Start 11/26/16 at 21:00 Insulin Aspart (Novolog) 10 units TIDWMEALS SQ Last administered on 11/28/16 12 :43; Start 11/26/16 at 17:00 Losartan Potassium (Cozaar) 100 mg DAILY PO Last administered on 11/28/16 08:41 ; Start 11/27/16 at 09:00 Acetylcysteine (Mucomyst 20% Oral Solution) 600 mg BID PO Last administered on 11/28/16 08:46; Start 11/27/16 at 12:45; Stop 11/28/16 at 22:00 Ondansetron HCl (Zofran) 4 mg PRN Q6HRS PRN IV Nausea; Start 11/28/16 at 07:00; Stop 11/28/16 at 23:00 Fentanyl Citrate (Fentanyl 2ml Vial) 25 mcg PRN Q5MIN PRN IV MILD PAIN; Start 11/28/16 at 07:00; Stop 11/28/16 at 23:00 Fentanyl Citrate (Fentanyl 2ml Vial) 50 mcg PRN Q5MIN PRN IV MODERATE PAIN; Start 11/28/16 at 07:00; Stop 11/28/16 at 23:00 Morphine Sulfate 1 mg 1 mg PRN Q10MIN PRN IV SEVERE PAIN; Start 11/28/16 at 07: 00; Stop 11/28/16 at 23:00 Lactated Ringer's (Iv Lactated Ringers) 1,000 ml @ 0 mls/hr Q0M IV ; Start 11/28 at 07:00; Stop 11/28/16 at 18:59 Lidocaine HCl 2 ml 1X PRN PRN ID IV START; Start 11/28/16 at 07:00; Stop at 06:59 Hydromorphone HCl (Dilaudid) 0.5 mg PRN Q10MIN PRN IV SEVERE PAIN, Second choice; Start 11/28/16 at 07:00; Stop 11/28/16 at 23:00 Prochlorperazine Edisylate (Compazine) 5 mg PACU PRN PRN IV NAUSEA; Start at 07:00; Stop 11/28/16 at 23:00 Active Scripts Active Reported Valsartan-Hctz 160-12.5 Mg Tab (Valsartan/Hydrochlorothiazide) 1 Each Tablet 1 Each PO DAILY Fish Oil 1,200 Mg Softgel (Mohall-3 Fatty Acids/Fish Oil) 1 Each Capsule 1 Each PO BID Humalog (Insulin Lispro) 100 Unit/1 Ml Insuln.pen 14 Unit SQ TIDAC Lantus (Insulin Glargine,Hum.rec.anlog) 100 Unit/1 Ml Vial 40 Unit SQ HS Sodium Bicarbonate 650 Mg Tablet 1 Tab PO BID Aspirin 325 Mg Tablet 325 Mg PO Warfarin Sodium 5 Mg Tablet 5 Mg PO DAILY Coreg (Carvedilol) 6.25 Mg Tablet 6.25 Mg PO BIDWMEALS Lexapro (Escitalopram Oxalate) 20 Mg Tablet 20 Mg PO DAILY Vitals/I & O Vital Sign - Last 24 Hours 11/27/16 11/27/16 11/27/16 11/27/16 15:20 17:47 19:00 20:00 Temp 98.3 98.1 98.3 98.1 Pulse 60 60 58 Resp 18 18 B/P 142/68 142/68 136/60 Pulse Ox 93 96 O2 Delivery Room Air Room Air Room Air 11/27/16 11/28/16 11/28/16 11/28/16 23:31 03:01 07:00 07:05 Temp 99.0 98.0 98.1 99.0 98.0 98.1 Pulse 60 61 70 Resp 18 18 18 B/P 152/65 168/97 158/81 Pulse Ox 94 95 95 O2 Delivery Room Air Room Air Room Air Room Air 11/28/16 11/28/16 11/28/16 08:40 08:41 10:40 Temp 97.8 97.8 Pulse 70 70 62 Resp 18 B/P 158/81 158/81 147/72 Pulse Ox 92 O2 Delivery Room Air Intake and Output 11/27/16 11/27/1611/28/17 15:00 23:00 07:00 Intake Total 180 ml 120 ml 480 ml Balance 180 ml 120 ml 480 ml LYNN ESPINOZA MD Nov 28, 2016 13:20
[2016-11-28] MEDS: MICAFUNGIN 100 MG in IV DEXTROSE 5% 100 ML IV SCH (14:00)
[2016-11-28 14:34] LABS: INR 2.3 (0.8-1.1)
[2016-11-28 14:54] VITALS: BP 162/75
--- NOTE | 2016-11-28 15:42 | PDOC ---
ASHA TANNER PATIENT SERVICE REPRESENTATIVE 11/28/16 1542: CARDIO Progress Notes Date and Time Date of Service 11/28/2016 Time of Evaluation 1230 Subjective Subjective: No Chest Pain, No shortness of breath, No Palpitations, No Dizziness Vitals Vitals Vital Signs Date Time Temp Pulse Resp B/P Pulse Ox O2 Delivery O2 Flow Rate FiO2 11/28/16 14:54 98.1 75 18 162/75 95 Room Air 98.1 Weight Weight [ ] Input and Output Intake and Output Intake and Output 11/28/16 07:00 Intake Total 780 ml Balance 780 ml Intake Oral 780 ml # Voids 3 Laboratory Labs Laboratory Tests Test 11/27/16 17:01 11/27/16 20:39 11/28/16 07:25 11/28/16 11:17 Glucose (Fingerstick) 206mg/dL (70-99) 108mg/dL (70-99) 112mg/dL (70-99) 176mg/dL (70-99) Test 11/28/16 14:10 Prothrombin Time 24.0SEC (11.7-14.0) Prothromb Time International Ratio 2.3 (0.8-1.1) Physical Exam HEENT: Neck Supple W Full Motion Chest: Symmetric LUNGS: Clear to Auscultation Heart: S1S2, RRR Abdomen: Soft N/T Extremities: No Calf Tenderness, Other (RLE 1+ pitting edema; right third toe gangrene/necrosis; positive pedal pulses via doppler; positive sensation, warm to touch right foot. ) Neurology: alert, oriented, follow commands Assessment Assessment 1. Osteomyelitis with gangrene: right third toe necrotic extending to metatarsal 2. Severe PAD 3. CAD: CABG x6 in 2005. No anginal symptoms. EKG SR without significant changes. TTE with normal EF and wall motion. 4. Hx of right leg DVT: 2 episodes in remote past. Claims he has IVC filter. Need to continue coumadin? INR 2.3 5. HTN/HLP 6. DM2 7. Hx of MRSA Recommendation 1. Vascular surgery with planned open revascularization tomorrow prior to toe amputation 2. Antibiotic therapy per ID/steward/stewardess lounge/ortho. Pending toe amputation. Vascular surgery has also been consulted. 3. Continue with secondary prevention 4. Increase coreg for better BP control. Will follow postoperatively. 5. Will need antiplatelet optimization postoperatively if coumadin is completely discontinued. 6. Optimize BG control. 7. Lipid panel. Muscle weakness with statin. If levels is uncontrolled then will need to consider PCSK9 inhibitors. THANIA TINSLEY MD 11/28/16 9328: CARDIO Progress Notes Assessment Assessment Patient seen and examined. Agree with ASSEMBLER FOR P[employer] OVER [employer]'s assessment and plan. Plan for surgical revascularization of right lower extremity for critical limb ischemia by vascular surgery team tomorrow. Continue antibiotics per ID team. CAD status clinically stable. ASHA TANNER APRN Nov 28, 2016 15:42 THANIA TINSLEY MD Nov 28, 2016 22:40
[2016-11-28] MEDS: CARVEDILOL 12.5 MG TABLET PO SCH (18:09)
[2016-11-28 19:00] VITALS: BP 166/82
[2016-11-28] MEDS: INSULIN DETEMIR 300 UNITS/3 ML INSULN.PEN. SQ SCH (21:00)
[2016-11-28] MEDS ORDERED: ZOLPIDEM 5 MG TABLET. PO ONE (22:00)
[2016-11-28 23:00] VITALS: BP 178/80
[2016-11-29] VITALS (12 sets, daily range): BP systolic 125–213; BP diastolic 56–97
[2016-11-29] MEDS ORDERED: PHYTONADIONE NEONATAL 1 MG/0.5 ML SYRINGE. SQ ONE
[2016-11-29 04:25] LABS: BASO % 1 % (0-3); EOS % 2 % (0-3); HEMATOCRIT 29.4 % (39.0-53.0); HEMOGLOBIN 10.1 g/dL (13.0-17.5); LYMPH % 29 % (24-48); MEAN CORPUSCULAR HEMOGLOBIN 30 pg (25-35); MEAN CORPUSCULAR HGB CONC 34 g/dL (31-37); MEAN CORPUSCULAR VOLUME 88 fL (79-100); MONO % 11 % (0-9); NEUT % 58 % (31-73); PLATELET COUNT 281 x10^3/uL (140-400); RED BLOOD COUNT 3.32 x10^6/uL (4.30-5.70); RED CELL DISTRIBUTION WIDTH 14.7 % (11.5-14.5); WHITE BLOOD COUNT 6.9 x10^3/uL (4.0-11.0)
[2016-11-29 04:26] LABS: PROTHROMBIN TIME PATIENT 21.2 SEC (11.7-14.0)
[2016-11-29 04:33] LABS: ALBUMIN 2.5 g/dL (3.4-5.0); ALBUMIN/GLOBULIN RATIO 0.5 (1.0-1.7); CALCIUM 8.5 mg/dL (8.5-10.1); CREATININE 1.2 mg/dL (0.7-1.3); GFR 58.6; POTASSIUM 3.8 mmol/L (3.5-5.1); TOTAL BILIRUBIN 0.5 mg/dL (0.2-1.0); TOTAL PROTEIN 7.5 g/dL (6.4-8.2)
[2016-11-29] MEDS: MEROPENEM 500 MG in IV NORMAL SALINE 50ML 50 ML IV SCH ×3 (04:56→23:05)
[2016-11-29] MEDS ORDERED: CEFAZOLIN 2GM PREMIX 50 ML IV ONE (06:00)
[2016-11-29] MEDS ORDERED: LIDOCAINE 1% 1 ML SYRINGE. ID PRN (07:00)
[2016-11-29] MEDS ORDERED: PROCHLORPERAZINE 10 MG/2 ML VIAL. IV PRN ×2 (07:00→18:45)
[2016-11-29] MEDS ORDERED: FENTANYL PF 100 MCG/2 ML VIAL. IV PRN ×4 (07:00→18:45)
[2016-11-29] MEDS ORDERED: IV RINGERS,LACTATED 1000ML 1,000 ML IV SCH (07:00)
[2016-11-29] MEDS ORDERED: MORPHINE SULFATE 2 MG/ML DISP.SYRIN. IV PRN ×2 (07:00→18:45)
[2016-11-29] MEDS ORDERED: HYDROMORPHONE 2 MG/ML VIAL. IV PRN ×2 (07:00→18:45)
[2016-11-29] MEDS: INSULIN ASPART 300 UNITS/3 ML INSULN.PEN SQ SCH ×5 (08:00→18:31)
[2016-11-29] MEDS: LOSARTAN POTASSIUM 50 MG TABLET. PO SCH (08:58)
[2016-11-29] MEDS: ESCITALOPRAM 10 MG TABLET. PO SCH (08:58)
[2016-11-29] MEDS: HYDROCHLOROTHIAZIDE 12.5 MG CAPSULE. PO SCH (08:58)
[2016-11-29] MEDS: CARVEDILOL 12.5 MG TABLET PO SCH (08:59)
[2016-11-29] MEDS: SODIUM BICARBONATE 650 MG TABLET. PO SCH ×2 (09:00→21:00)
[2016-11-29] MEDS: ASPIRIN 325 MG TABLET PO SCH (09:00)
[2016-11-29] MEDS: OMEGA-3 FATTY ACIDS/FISH OIL 1,000 MG CAPSULE. PO SCH (09:00)
--- NOTE | 2016-11-29 10:06 | PDOC ---
Infectious Disease Note Subjective Subjective Patient resting comfortably, has no complaints upon today's visit. States the discharge from the affected toe has stopped. Loose stool is better ROS ROS GEN: Denies fevers, chills, sweats HEENT: Denies blurred vision, sore throat CV: Denies chest pain RESP: Denies shortness of air, cough GI: Denies n/v/d NEURO: Denies confusion, dizziness MSK: Denies weakness, joint pain/swelling Vital Sign Vital Signs Vital Signs Date Time Temp Pulse Resp B/P Pulse Ox O2 Delivery O2 Flow Rate FiO2 11/29/16 08:59 72 179/91 11/29/16 07:00 98.0 18 95 Room Air 98.0 Physical Exam PHYSICAL EXAM GENERAL: NAD, Alert, coop HEENT: PERRL, OC/OP - clear NECK: Supple, no JVD, no LN LUNGS: Clear HEART: S1S2, no gallop, no murmur ABD: Soft, NT, no organomegaly, no rebound, Obese EXT: No edema, no cyanosis. wound dressed [employer] RESOURCE MANAGER: Alert, oriented x 3, no focal neurologic deficit SKIN: No rash IV: ok Labs Lab Laboratory Tests Test 11/28/16 11:17 11/28/16 14:10 11/28/16 16:14 11/28/16 16:44 Glucose (Fingerstick) 176mg/dL (70-99) 66mg/dL (70-99) 100mg/dL (70-99) Prothrombin Time 24.0SEC (11.7-14.0) Prothromb Time International Ratio 2.3 (0.8-1.1) Triglycerides Level 131mg/dL (0-150) Cholesterol Level 174mg/dL (0-200) LDL Cholesterol, Calculated 123mg/dL (0-100) VLDL Cholesterol, Calculated 26mg/dL (0-40) HDL Cholesterol 25mg/dL (40-60) Cholesterol/HDL Ratio 7.0 Test 11/28/16 21:05 11/29/16 03:58 11/29/16 07:48 Glucose (Fingerstick) 156mg/dL (70-99) 163mg/dL (70-99) White Blood Count 6.9x10^3/uL (4.0-11.0) Red Blood Count 3.32x10^6/uL (4.30-5.70) Hemoglobin 10.1g/dL (13.0-17.5) Hematocrit 29.4% (39.0-53.0) Mean Corpuscular Volume 88fL (79-100) Mean Corpuscular Hemoglobin 30pg (25-35) Mean Corpuscular Hemoglobin Concent 34g/dL (31-37) Red Cell Distribution Width 14.7% (11.5-14.5) Platelet Count 281x10^3/uL (140-400) Neutrophils (%) (Auto) 58% (31-73) Lymphocytes (%) (Auto) 29% (24-48) Monocytes (%) (Auto) 11% (0-9) Eosinophils (%) (Auto) 2% (0-3) Basophils (%) (Auto) 1% (0-3) Neutrophils # (Auto) 4.0x10^3uL (1.8-7.7) Lymphocytes # (Auto) 2.0x10^3/uL (1.0-4.8) Monocytes # (Auto) 0.7x10^3/uL (0.0-1.1) Eosinophils # (Auto) 0.1x10^3/uL (0.0-0.7) Basophils # (Auto) 0.0x10^3/uL (0.0-0.2) Prothrombin Time 21.2SEC (11.7-14.0) Prothromb Time International Ratio 2.0 (0.8-1.1) Sodium Level 135mmol/L (136-145) Potassium Level 3.8mmol/L (3.5-5.1) Chloride Level 101mmol/L (98-107) Carbon Dioxide Level 28mmol/L (21-32) Anion Gap 6 (6-14) Blood Urea Nitrogen 16mg/dL (8-26) Creatinine 1.2mg/dL (0.7-1.3) Estimated GFR (Cockcroft-Gault) 58.6 BUN/Creatinine Ratio 13 (6-20) Glucose Level 155mg/dL (70-99) Calcium Level 8.5mg/dL (8.5-10.1) Total Bilirubin 0.5mg/dL (0.2-1.0) Aspartate Amino Transf (AST/SGOT) 20U/L (15-37) Alanine Aminotransferase (ALT/SGPT) 15U/L (16-63) Alkaline Phosphatase 86U/L (46-116) Total Protein 7.5g/dL (6.4-8.2) Albumin 2.5g/dL (3.4-5.0) Albumin/Globulin Ratio 0.5 (1.0-1.7) Micro IMPRESSION MRI 11/24 1. Findings are compatible with osteomyelitis involving the proximal phalanx of the 3rd toe, and possibly also at the 3rd metatarsal head. Marrow edema within the middle 3rd phalanx may just be reactive. 2. There is generalized soft tissue edema and muscle edema without drainable fluid collection or abscess. 3. Mild marrow edema and low T1 signal at the distal remnant of the 5th metatarsal could be related to the recent surgery, but mild osteomyelitis is not excludable here, particularly if there is an overlying ulceration. 4. Mild 3rd flexor tenosynovitis. 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 10/24/16 Loose stool - some better today Plan Plan of Care Cont Meropenem/Micafungin D/c Zyvox 11/28 Add probiotics F/u labs in am and cults Await vascular surgery today DEVYN MOSQUEDA MD Nov 29, 2016 10:06
[2016-11-29] MEDS: LACTOBACILLUS ACIDOPH & BULGAR 1 TABLET. PO SCH (11:21)
--- NOTE | 2016-11-29 11:55 | PDOC ---
SUBJECTIVE Subjective Patient seen bedside awaiting revascularization to right lower extremity. No acute overnight events. OBJECTIVE Objective Intermittent pain to right foot Vital Signs Vital Signs Date Time Temp Pulse Resp B/P Pulse Ox O2 Delivery O2 Flow Rate FiO2 11/29/16 10:53 98.8 64 18 142/87 95 Room Air 98.8 11/29/16 08:59 72 179/91 11/29/16 08:58 72 179/91 11/29/16 08:10 Room Air 11/29/16 07:00 98.0 72 18 179/91 95 Room Air 98.0 11/29/16 03:30 97.9 72 20 159/76 96 Room Air 97.9 11/28/16 23:00 97.6 64 20 178/80 96 Room Air 97.6 11/28/16 20:00 Room Air 11/28/16 19:00 97.8 56 20 166/82 93 Room Air 97.8 11/28/16 18:09 75 162/75 11/28/16 14:54 98.1 75 18 162/75 95 Room Air 98.1 I & O Intake and Output 11/29/16 07:00 Intake Total 380 ml Output Total 250 ml Balance 130 ml Intake Oral 380 ml Output Urine Total 250 ml # Voids 1 # Bowel Movements 1 PHYSICAL EXAM Physical Exam LOWER Extremity: Dry gangrene to 3rd toe right foot. +swelling to right lower extremity. cool to touch at digits with delayed cft to hallux and 2nd toe. no active drainage. No discontinuity of skin to left foot. status post partial 4th and 5th ray amputation right foot with eschar formation to incision dehiscence site. non palpable pedal pulses. sensation diminished to sharp dull and light touch. ASSESSMENT/PLAN Assessment/Plan 76 year old male with osteomyelitis right foot, PVD with dry gangrene 3rd toe right foot, DM with peripheral neuropathy -Discussed with vascular surgery today's procedure, will await revascularization today and discuss intraoperative findings and end results -Continue IV Antibiotics per ID. -Plan for transmetatarsal amputation tomorrow at 1030am right foot pending revascularization -Discussed with orthopedics possible higher level BKA if revascularization is unsuccessful. -Discussed with patient in detail his condition and treatment options including possible complications of transmetatarsal amputation to include delayed or non healing, need for further surgery, infection, DVT, PE, chronic pain, transfer lesions, loss of foot/limb/life, -All questions answered. -NPO after midnight Problems: COMMENT Lab Laboratory Tests Test 11/28/16 14:10 11/28/16 16:14 11/28/16 16:44 11/28/16 21:05 Prothrombin Time 24.0SEC (11.7-14.0) Prothromb Time International Ratio 2.3 (0.8-1.1) Triglycerides Level 131mg/dL (0-150) Cholesterol Level 174mg/dL (0-200) LDL Cholesterol, Calculated 123mg/dL (0-100) VLDL Cholesterol, Calculated 26mg/dL (0-40) HDL Cholesterol 25mg/dL (40-60) Cholesterol/HDL Ratio 7.0 Glucose (Fingerstick) 66mg/dL (70-99) 100mg/dL (70-99) 156mg/dL (70-99) Test 11/29/16 03:58 11/29/16 07:48 11/29/16 11:13 White Blood Count 6.9x10^3/uL (4.0-11.0) Red Blood Count 3.32x10^6/uL (4.30-5.70) Hemoglobin 10.1g/dL (13.0-17.5) Hematocrit 29.4% (39.0-53.0) Mean Corpuscular Volume 88fL (79-100) Mean Corpuscular Hemoglobin 30pg (25-35) Mean Corpuscular Hemoglobin Concent 34g/dL (31-37) Red Cell Distribution Width 14.7% (11.5-14.5) Platelet Count 281x10^3/uL (140-400) Neutrophils (%) (Auto) 58% (31-73) Lymphocytes (%) (Auto) 29% (24-48) Monocytes (%) (Auto) 11% (0-9) Eosinophils (%) (Auto) 2% (0-3) Basophils (%) (Auto) 1% (0-3) Neutrophils # (Auto) 4.0x10^3uL (1.8-7.7) Lymphocytes # (Auto) 2.0x10^3/uL (1.0-4.8) Monocytes # (Auto) 0.7x10^3/uL (0.0-1.1) Eosinophils # (Auto) 0.1x10^3/uL (0.0-0.7) Basophils # (Auto) 0.0x10^3/uL (0.0-0.2) Prothrombin Time 21.2SEC (11.7-14.0) Prothromb Time International Ratio 2.0 (0.8-1.1) Sodium Level 135mmol/L (136-145) Potassium Level 3.8mmol/L (3.5-5.1) Chloride Level 101mmol/L (98-107) Carbon Dioxide Level 28mmol/L (21-32) Anion Gap 6 (6-14) Blood Urea Nitrogen 16mg/dL (8-26) Creatinine 1.2mg/dL (0.7-1.3) Estimated GFR (Cockcroft-Gault) 58.6 BUN/Creatinine Ratio 13 (6-20) Glucose Level 155mg/dL (70-99) Calcium Level 8.5mg/dL (8.5-10.1) Total Bilirubin 0.5mg/dL (0.2-1.0) Aspartate Amino Transf (AST/SGOT) 20U/L (15-37) Alanine Aminotransferase (ALT/SGPT) 15U/L (16-63) Alkaline Phosphatase 86U/L (46-116) Total Protein 7.5g/dL (6.4-8.2) Albumin 2.5g/dL (3.4-5.0) Albumin/Globulin Ratio 0.5 (1.0-1.7) Glucose (Fingerstick) 163mg/dL (70-99) 192mg/dL (70-99) CINDA MORENO DPM Nov 29, 2016 11:55
[2016-11-29] MEDS ORDERED: FUROSEMIDE 40 MG/4 ML VIAL IVP ONE (12:45)
[2016-11-29] MEDS ORDERED: VANCOMYCIN 1GM IVPB FOR OMNI. ONE (13:00)
[2016-11-29] MEDS ORDERED: HEPARIN S0DIUM 5,000 UNIT in IV NORMAL SALINE 500ML BAG 500 ML IRR ONE (15:00)
--- NOTE | 2016-11-29 15:13 | PDOC ---
PROGRESS NOTES Chief Complaint Chief Complaint 1. 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 dm2 on insulin 4. H/O CAD post CAG 5. HTN 6. HLD 7. peripheral artery disease 8 anemia of CKD 9. CKD4 10. H/O DVT OF right leg on coumadin History of Present Illness History of Present Illness Pt seen and examined. Vasc surg plan revasc before TM amputation cont abx discussed with ID consult Vitals Vitals Vital Signs Date Time Temp Pulse Resp B/P Pulse Ox O2 Delivery O2 Flow Rate FiO2 11/29/16 12:35 99.3 63 12 168/82 93 Room Air 99.3 Physical Exam General: Alert, Oriented X3, No acute distress Heart: Regular rate, Normal S1, Normal S2, No murmurs Lungs: Clear, Other Abdomen: Normal bowel sounds, Soft, No tenderness, No masses Extremities: Other (Pulses: Palpable bilateral brachial, radial, femoral and popliteal pulses. Doppleable monophasic left dorsalis Doppleable right post tibial pulse. Unable to dopple or palpate right dorsalis pedal pulse. Right foot swollen with erythema of forefoot.) Skin: Other (Right foot swollen and with erythema to forefoot and lateral aspect of foot. Dry, black scabbed wound base to previously amputated fourth and fifth toes of the right foot. Black, necrotic third toe of right foot.) Labs LABS Laboratory Tests Test 11/28/16 16:14 11/28/16 16:44 11/28/16 21:05 11/29/16 03:58 Glucose (Fingerstick) 66mg/dL (70-99) 100mg/dL (70-99) 156mg/dL (70-99) White Blood Count 6.9x10^3/uL (4.0-11.0) Red Blood Count 3.32x10^6/uL (4.30-5.70) Hemoglobin 10.1g/dL (13.0-17.5) Hematocrit 29.4% (39.0-53.0) Mean Corpuscular Volume 88fL (79-100) Mean Corpuscular Hemoglobin 30pg (25-35) Mean Corpuscular Hemoglobin Concent 34g/dL (31-37) Red Cell Distribution Width 14.7% (11.5-14.5) Platelet Count 281x10^3/uL (140-400) Neutrophils (%) (Auto) 58% (31-73) Lymphocytes (%) (Auto) 29% (24-48) Monocytes (%) (Auto) 11% (0-9) Eosinophils (%) (Auto) 2% (0-3) Basophils (%) (Auto) 1% (0-3) Neutrophils # (Auto) 4.0x10^3uL (1.8-7.7) Lymphocytes # (Auto) 2.0x10^3/uL (1.0-4.8) Monocytes # (Auto) 0.7x10^3/uL (0.0-1.1) Eosinophils # (Auto) 0.1x10^3/uL (0.0-0.7) Basophils # (Auto) 0.0x10^3/uL (0.0-0.2) Prothrombin Time 21.2SEC (11.7-14.0) Prothromb Time International Ratio 2.0 (0.8-1.1) Sodium Level 135mmol/L (136-145) Potassium Level 3.8mmol/L (3.5-5.1) Chloride Level 101mmol/L (98-107) Carbon Dioxide Level 28mmol/L (21-32) Anion Gap 6 (6-14) Blood Urea Nitrogen 16mg/dL (8-26) Creatinine 1.2mg/dL (0.7-1.3) Estimated GFR (Cockcroft-Gault) 58.6 BUN/Creatinine Ratio 13 (6-20) Glucose Level 155mg/dL (70-99) Calcium Level 8.5mg/dL (8.5-10.1) Total Bilirubin 0.5mg/dL (0.2-1.0) Aspartate Amino Transf (AST/SGOT) 20U/L (15-37) Alanine Aminotransferase (ALT/SGPT) 15U/L (16-63) Alkaline Phosphatase 86U/L (46-116) Total Protein 7.5g/dL (6.4-8.2) Albumin 2.5g/dL (3.4-5.0) Albumin/Globulin Ratio 0.5 (1.0-1.7) Test 11/29/16 07:48 11/29/16 11:13 Glucose (Fingerstick) 163mg/dL (70-99) 192mg/dL (70-99) Assessment and Plan Assessmemt and Plan to surg today feels well INR 2.0 Problems Medical Problems: (1) Cellulitis of right toe Status: Acute (2) Osteomyelitis Status: Acute (3) Peripheral vascular disease Status: Acute Problems: Comment Review of Relevant I have reviewed the following items gage (where applicable) has been applied. Labs Laboratory Tests Test 11/27/16 17:01 11/27/16 20:39 11/28/16 07:25 11/28/16 11:17 Glucose (Fingerstick) 206mg/dL (70-99) 108mg/dL (70-99) 112mg/dL (70-99) 176mg/dL (70-99) Test 11/28/16 14:10 11/28/16 16:14 11/28/16 16:44 11/28/16 21:05 Prothrombin Time 24.0SEC (11.7-14.0) Prothromb Time International Ratio 2.3 (0.8-1.1) Triglycerides Level 131mg/dL (0-150) Cholesterol Level 174mg/dL (0-200) LDL Cholesterol, Calculated 123mg/dL (0-100) VLDL Cholesterol, Calculated 26mg/dL (0-40) HDL Cholesterol 25mg/dL (40-60) Cholesterol/HDL Ratio 7.0 Glucose (Fingerstick) 66mg/dL (70-99) 100mg/dL (70-99) 156mg/dL (70-99) Test 11/29/16 03:58 11/29/16 07:48 11/29/16 11:13 White Blood Count 6.9x10^3/uL (4.0-11.0) Red Blood Count 3.32x10^6/uL (4.30-5.70) Hemoglobin 10.1g/dL (13.0-17.5) Hematocrit 29.4% (39.0-53.0) Mean Corpuscular Volume 88fL (79-100) Mean Corpuscular Hemoglobin 30pg (25-35) Mean Corpuscular Hemoglobin Concent 34g/dL (31-37) Red Cell Distribution Width 14.7% (11.5-14.5) Platelet Count 281x10^3/uL (140-400) Neutrophils (%) (Auto) 58% (31-73) Lymphocytes (%) (Auto) 29% (24-48) Monocytes (%) (Auto) 11% (0-9) Eosinophils (%) (Auto) 2% (0-3) Basophils (%) (Auto) 1% (0-3) Neutrophils # (Auto) 4.0x10^3uL (1.8-7.7) Lymphocytes # (Auto) 2.0x10^3/uL (1.0-4.8) Monocytes # (Auto) 0.7x10^3/uL (0.0-1.1) Eosinophils # (Auto) 0.1x10^3/uL (0.0-0.7) Basophils # (Auto) 0.0x10^3/uL (0.0-0.2) Prothrombin Time 21.2SEC (11.7-14.0) Prothromb Time International Ratio 2.0 (0.8-1.1) Sodium Level 135mmol/L (136-145) Potassium Level 3.8mmol/L (3.5-5.1) Chloride Level 101mmol/L (98-107) Carbon Dioxide Level 28mmol/L (21-32) Anion Gap 6 (6-14) Blood Urea Nitrogen 16mg/dL (8-26) Creatinine 1.2mg/dL (0.7-1.3) Estimated GFR (Cockcroft-Gault) 58.6 BUN/Creatinine Ratio 13 (6-20) Glucose Level 155mg/dL (70-99) Calcium Level 8.5mg/dL (8.5-10.1) Total Bilirubin 0.5mg/dL (0.2-1.0) Aspartate Amino Transf (AST/SGOT) 20U/L (15-37) Alanine Aminotransferase (ALT/SGPT) 15U/L (16-63) Alkaline Phosphatase 86U/L (46-116) Total Protein 7.5g/dL (6.4-8.2) Albumin 2.5g/dL (3.4-5.0) Albumin/Globulin Ratio 0.5 (1.0-1.7) Glucose (Fingerstick) 163mg/dL (70-99) 192mg/dL (70-99) Laboratory Tests Test 11/28/16 16:14 11/28/16 16:44 11/28/16 21:05 11/29/16 03:58 Glucose (Fingerstick) 66mg/dL (70-99) 100mg/dL (70-99) 156mg/dL (70-99) White Blood Count 6.9x10^3/uL (4.0-11.0) Red Blood Count 3.32x10^6/uL (4.30-5.70) Hemoglobin 10.1g/dL (13.0-17.5) Hematocrit 29.4% (39.0-53.0) Mean Corpuscular Volume 88fL (79-100) Mean Corpuscular Hemoglobin 30pg (25-35) Mean Corpuscular Hemoglobin Concent 34g/dL (31-37) Red Cell Distribution Width 14.7% (11.5-14.5) Platelet Count 281x10^3/uL (140-400) Neutrophils (%) (Auto) 58% (31-73) Lymphocytes (%) (Auto) 29% (24-48) Monocytes (%) (Auto) 11% (0-9) Eosinophils (%) (Auto) 2% (0-3) Basophils (%) (Auto) 1% (0-3) Neutrophils # (Auto) 4.0x10^3uL (1.8-7.7) Lymphocytes # (Auto) 2.0x10^3/uL (1.0-4.8) Monocytes # (Auto) 0.7x10^3/uL (0.0-1.1) Eosinophils # (Auto) 0.1x10^3/uL (0.0-0.7) Basophils # (Auto) 0.0x10^3/uL (0.0-0.2) Prothrombin Time 21.2SEC (11.7-14.0) Prothromb Time International Ratio 2.0 (0.8-1.1) Sodium Level 135mmol/L (136-145) Potassium Level 3.8mmol/L (3.5-5.1) Chloride Level 101mmol/L (98-107) Carbon Dioxide Level 28mmol/L (21-32) Anion Gap 6 (6-14) Blood Urea Nitrogen 16mg/dL (8-26) Creatinine 1.2mg/dL (0.7-1.3) Estimated GFR (Cockcroft-Gault) 58.6 BUN/Creatinine Ratio 13 (6-20) Glucose Level 155mg/dL (70-99) Calcium Level 8.5mg/dL (8.5-10.1) Total Bilirubin 0.5mg/dL (0.2-1.0) Aspartate Amino Transf (AST/SGOT) 20U/L (15-37) Alanine Aminotransferase (ALT/SGPT) 15U/L (16-63) Alkaline Phosphatase 86U/L (46-116) Total Protein 7.5g/dL (6.4-8.2) Albumin 2.5g/dL (3.4-5.0) Albumin/Globulin Ratio 0.5 (1.0-1.7) Test 11/29/16 07:48 11/29/16 11:13 Glucose (Fingerstick) 163mg/dL (70-99) 192mg/dL (70-99) Medications Current Medications Vancomycin HCl 1 each 1 each PRN DAILY PRN MC SEE COMMENTS; Start 11/26/16 at 12 :45; Stop 11/26/16 at 13:30; Status DC Sodium Chloride 500 ml @ 500 mls/hr 1X ONCE IV Last administered on 11/26/16 14:52; Start 11/26/16 at 12:45; Stop 11/26/16 at 13:44; Status DC Vancomycin HCl/ Sodium Chloride (Iv Sodium Chloride 0.9% 500ml Bag) 500 ml @ 250 mls/hr 1X ONCE IV Last administered on 11/26/16 13:09; Start 11/26/16 at 13 :00; Stop 11/26/16 at 14:59; Status DC Ondansetron HCl (Zofran) 4 mg PRN Q8HRS PRN IV NAUSEA/VOMITING; Start 11/26/16 at 12:45; Stop 11/26/16 at 15:59; Status DC Morphine Sulfate 2 mg 2 mg PRN Q2HR PRN IV PAIN; Start 11/26/16 at 12:45; Stop 11/27/16 at 12:44; Status DC Sodium Chloride 1,000 ml @ 125 mls/hr Q8H IV Last administered on 11/27/16 05: 57; Start 11/26/16 at 12:43; Stop 11/27/16 at 12:42; Status DC Meropenem 500 mg/ Sodium Chloride 50 ml @ 100 mls/hr Q6HRS IV Last administered on 11/29/16 11:46; Start 11/26/16 at 14:00 Micafungin Sodium 100 mg/Dextrose 100 ml @ 100 mls/hr Q24H IV Last administered on 11/28/16 14:00; Start 11/26/16 at 14:00 Linezolid (Zyvox Premix) 300 ml @ 300 mls/hr Q12HR IV Last administered on 11/28 08:38; Start 11/26/16 at 14:00; Stop 11/28/16 at 12:00; Status DC Acetaminophen (Tylenol) 650 mg PRN Q6HRS PRN PO MILD PAIN / TEMP; Start at 15:45 Ondansetron HCl (Zofran) 4 mg PRN Q6HRS PRN IV NAUSEA/VOMITING; Start 11/26/16 at 15:45 Acetaminophen/ Hydrocodone Bitart (Lortab 5/325) 1 tab PRN Q4HRS PRN PO PAIN; Start 11/26/16 at 15:45 Insulin Aspart (Novolog) 0-9 UNITS TIDWMEALS SQ Last administered on 11/28/16 12:43; Start 11/26/16 at 17:00 Dextrose 12.5 gm PRN Q15MIN PRN IV SEE COMMENTS; Start 11/26/16 at 15:45 Aspirin ([place] Aspirin) 325 mg DAILY PO Last administered on 11/28/16 08:38; Start 11/27/16 at 09:00 Carvedilol (Coreg) 6.25 mg BIDWMEALS PO Last administered on 11/28/16 08:40; Start 11/26/16 at 17:00; Stop 11/28/16 at 15:41; Status DC Sodium Bicarbonate (Sodium Bicarbonate) 650 mg BID PO Last administered on 22:07; Start 11/26/16 at 21:00 Escitalopram Oxalate (Lexapro) 20 mg DAILY PO Last administered on 11/29/16 08: 58; Start 11/27/16 at 09:00 Non-Formulary Medication 40 unit HS SQ ; Start 11/26/16 at 21:00; Stop 11/26/16 at 21:00; Status DC Non-Formulary Medication 14 unit TIDAC SQ ; Start 11/26/16 at 16:30; Stop at 16:30; Status DC Fish Oil (Fish Oil) 1,000 mg DAILY PO Last administered on 11/28/16 08:40; Start 11/27/16 at 09:00 Hydrochlorothiazide (Microzide) 12.5 mg DAILY PO Last administered on 11/29/16 08:58; Start 11/27/16 at 09:00 Insulin Detemir (Levemir) 40 units QHS SQ Last administered on 11/27/16 22:08; Start 11/26/16 at 21:00 Insulin Aspart (Novolog) 10 units TIDWMEALS SQ Last administered on 11/28/16 12 :43; Start 11/26/16 at 17:00 Losartan Potassium (Cozaar) 100 mg DAILY PO Last administered on 11/29/16 08:58 ; Start 11/27/16 at 09:00 Acetylcysteine (Mucomyst 20% Oral Solution) 600 mg BID PO Last administered on 11/28/16 22:07; Start 11/27/16 at 12:45; Stop 11/28/16 at 22:00; Status DC Ondansetron HCl (Zofran) 4 mg PRN Q6HRS PRN IV Nausea; Start 11/28/16 at 07:00; Stop 11/28/16 at 23:00; Status DC Fentanyl Citrate (Fentanyl 2ml Vial) 25 mcg PRN Q5MIN PRN IV MILD PAIN; Start 11/28/16 at 07:00; Stop 11/28/16 at 23:00; Status DC Fentanyl Citrate (Fentanyl 2ml Vial) 50 mcg PRN Q5MIN PRN IV MODERATE PAIN; Start 11/28/16 at 07:00; Stop 11/28/16 at 23:00; Status DC Morphine Sulfate 1 mg 1 mg PRN Q10MIN PRN IV SEVERE PAIN; Start 11/28/16 at 07: 00; Stop 11/28/16 at 23:00; Status DC Lactated Ringer's (Iv Lactated Ringers) 1,000 ml @ 0 mls/hr Q0M IV ; Start 11/28 at 07:00; Stop 11/28/16 at 18:59; Status DC Lidocaine HCl 2 ml 1X PRN PRN ID IV START; Start 11/28/16 at 07:00; Stop at 06:59; Status DC Hydromorphone HCl (Dilaudid) 0.5 mg PRN Q10MIN PRN IV SEVERE PAIN, Second choice; Start 11/28/16 at 07:00; Stop 11/28/16 at 23:00; Status DC Prochlorperazine Edisylate (Compazine) 5 mg PACU PRN PRN IV NAUSEA; Start at 07:00; Stop 11/28/16 at 23:00; Status DC Fentanyl Citrate (Fentanyl 2ml Vial) 25 mcg PRN Q5MIN PRN IV MILD PAIN; Start 11/29/16 at 07:00; Stop 11/29/16 at 18:00 Fentanyl Citrate (Fentanyl 2ml Vial) 50 mcg PRN Q5MIN PRN IV MODERATE PAIN; Start 11/29/16 at 07:00; Stop 11/29/16 at 18:00 Morphine Sulfate 1 mg 1 mg PRN Q10MIN PRN IV SEVERE PAIN; Start 11/29/16 at 07: 00; Stop 11/29/16 at 18:00 Lactated Ringer's (Iv Lactated Ringers) 1,000 ml @ 30 mls/hr Q24H IV Last administered on 11/29/16 12:30; Start 11/29/16 at 07:00; Stop 11/29/16 at 18:59 Lidocaine HCl 2 ml 1X PRN PRN ID IV START; Start 11/29/16 at 07:00; Stop at 18:00 Hydromorphone HCl (Dilaudid) 0.5 mg PRN Q10MIN PRN IV SEVERE PAIN, Second choice; Start 11/29/16 at 07:00; Stop 11/29/16 at 18:00 Prochlorperazine Edisylate (Compazine) 5 mg PACU PRN PRN IV NAUSEA; Start at 07:00; Stop 11/29/16 at 18:00 Carvedilol 12.5 mg 12.5 mg BIDWMEALS PO Last administered on 2/8/17at 08:59; Start 11/28/16 at 17:00 Cefazolin Sodium/ Dextrose (Ancef 2gm Premix) 50 ml @ 100 mls/hr 1X ONCE IV ; Start 11/29/16 at 06:00; Stop 11/29/16 at 06:29; Status DC Zolpidem Tartrate (Ambien) 5 mg 1X ONCE PO Last administered on 11/28/16 22:07 ; Start 11/28/16 at 22:00; Stop 11/28/16 at 22:01; Status DC Phytonadione (Vitamin K ) 1 mg 1X ONCE SQ Last administered on 23:43; Start 11/29/16 at 00:00; Stop 11/29/16 at 00:01; Status DC Hydralazine HCl (Apresoline) 10 mg PRN Q4HRS PRN IVP ELEVATED BP, SEE COMMENTS ; Start 11/29/16 at 08:30 Lactobacillus Acidophilus (Bacid, Svitlana-Bid) 1 tab TIDWMEALS PO ; Start 11/29/16 at 12:00 Furosemide 40 mg 40 mg 1X ONCE IVP ; Start 11/29/16 at 12:45; Stop 11/29/16 at 12 :45; Status DC Heparin Sodium (Porcine)/Sodium Chloride (Iv Sodium Chloride 0.9% 500ml Bag) 505 ml @ 505 mls/hr 1X PERIOP ONCE IRR Last administered on 11/29/16 13:48; Start 11/29/16 at 15:00; Stop 11/29/16 at 15:59 Fentanyl Citrate (Fentanyl 2ml Vial) 25 mcg PRN Q5MIN PRN IV MILD PAIN; Start 11/30/16 at 07:00; Stop 12/01/16 at 06:59 Fentanyl Citrate (Fentanyl 2ml Vial) 50 mcg PRN Q5MIN PRN IV MODERATE PAIN; Start 11/30/16 at 07:00; Stop 12/01/16 at 06:59 Morphine Sulfate 1 mg 1 mg PRN Q10MIN PRN IV SEVERE PAIN; Start 11/30/16 at 07: 00; Stop 12/01/16 at 06:59 Lactated Ringer's (Iv Lactated Ringers) 1,000 ml @ 0 mls/hr Q0M IV ; Start 11/30 at 07:00; Stop 11/30/16 at 18:59 Lidocaine HCl 2 ml 1X PRN PRN ID IV START; Start 11/30/16 at 07:00; Stop at 06:59 Hydromorphone HCl (Dilaudid) 0.5 mg PRN Q10MIN PRN IV SEVERE PAIN, Second choice; Start 11/30/16 at 07:00; Stop 12/01/16 at 06:59 Prochlorperazine Edisylate (Compazine) 5 mg PACU PRN PRN IV NAUSEA; Start at 07:00; Stop 12/01/16 at 06:59 Active Scripts Active Reported Valsartan-Hctz 160-12.5 Mg Tab (Valsartan/Hydrochlorothiazide) 1 Each Tablet 1 Each PO DAILY Fish Oil 1,200 Mg Softgel ([place]-3 Fatty Acids/Fish Oil) 1 Each Capsule 1 Each PO BID Humalog (Insulin Lispro) 100 Unit/1 Ml Insuln.pen 14 Unit SQ TIDAC Lantus (Insulin Glargine,Hum.rec.anlog) 100 Unit/1 Ml Vial 40 Unit SQ HS Sodium Bicarbonate 650 Mg Tablet 1 Tab PO BID Aspirin 325 Mg Tablet 325 Mg PO Warfarin Sodium 5 Mg Tablet 5 Mg PO DAILY Coreg (Carvedilol) 6.25 Mg Tablet 6.25 Mg PO BIDWMEALS Lexapro (Escitalopram Oxalate) 20 Mg Tablet 20 Mg PO DAILY Vitals/I & O Vital Sign - Last 24 Hours 11/28/16 11/28/16 11/28/16 11/28/16 18:09 19:00 20:00 23:00 Temp 97.8 97.6 97.8 97.6 Pulse 75 56 64 Resp 20 20 B/P 162/75 166/82 178/80 Pulse Ox 93 96 O2 Delivery Room Air Room Air Room Air 11/29/16 11/29/16 11/29/16 11/29/16 03:30 07:00 08:10 08:58 Temp 97.9 98.0 97.9 98.0 Pulse 72 72 72 Resp 20 18 B/P 159/76 179/91 179/91 Pulse Ox 96 95 O2 Delivery Room Air Room Air Room Air 11/29/16 11/29/16 11/29/16 08:59 10:53 12:35 Temp 98.8 99.3 98.8 99.3 Pulse 72 64 63 Resp 18 12 B/P 179/91 142/87 168/82 Pulse Ox 95 93 O2 Delivery Room Air Room Air Intake and Output 11/28/16 11/28/16 11/29/16 15:00 23:00 07:00 Intake Total 140 ml 240 ml Output Total 250 ml Balance 140 ml -10 ml LYNN ESPINOZA MD Nov 29, 2016 15:13
--- NOTE | 2016-11-29 18:15 | PDOC4 ---
Operative Note Operative Note Op note dictated Dx: Arterial insufficiency right lower extremity due to severe tibial occlusive disease, nonwound healing and gangrene 3rd toe Op: 1. right popiteal to posterior tibial artery bypass with spliced great and small saphenous veins Surg: Krishna GOT to rr in sat cond; 2+ palpable graft pulse; good flow over post. tibial artery at the ankle, foot hyperemic JENNA HANDY II, MD Nov 29, 2016 18:15
[2016-11-29] MEDS ORDERED: ONDANSETRON PF 4 MG/2 ML VIAL. IV PRN (18:45)
[2016-11-29] MEDS ORDERED: CLOPIDOGREL BISULFATE 75 MG TABLET PO ONE (19:30)
[2016-11-29] MEDS: MICAFUNGIN 100 MG in IV DEXTROSE 5% 100 ML IV SCH (22:02)
[2016-11-29] MEDS: INSULIN DETEMIR 300 UNITS/3 ML INSULN.PEN. SQ SCH (22:08)
[2016-11-29] MEDS: HYDROCODONE/APAP 5/325MG TABLET. PO PRN (23:49)
[2016-11-30] VITALS (10 sets, daily range): BP systolic 100–168; BP diastolic 47–107
--- NOTE | 2016-11-30 00:24 | OP ---
DATE OF SURGERY: PREOPERATIVE DIAGNOSIS: Arterial insufficiency, right leg with nonhealing wounds, right forefoot and gangrene of the right third toe. POSTOPERATIVE DIAGNOSIS: Arterial insufficiency, right leg with nonhealing wounds, right forefoot and gangrene of the right third toe due to severe tibial artery occlusive disease. PROCEDURE: Right popliteal to posterior tibial artery bypass using spliced great saphenous and small saphenous veins. SURGEON: Jenna Keller M.D. CAREER PROFESSIONAL: Anabel. ANESTHESIA: General. INDICATIONS: This is a 76-year-old gentleman who has had an amputation of the toe, which did not heal and he has developed gangrene of his third toe. Angiographic evaluation done by Cardiology reveals severe 3-vessel disease with primary runoff via the peroneal artery. There was reconstitution of the dorsal pedal artery and the posterior tibial artery. The dorsal pedal artery is now occluded following percutaneous intervention. It is hoped that bypass can be accomplished through the posterior tibial artery which reconstitutes from the peroneal artery to provide sufficient flow to the forefoot for wound healing. OPERATIVE FINDINGS: The patient had excellent great and small saphenous veins, which when spliced together provided adequate length. The popliteal artery below the knee was quite heavily calcified in an egg shelled nature, but good inflow was able to be obtained. The posterior tibial artery at the ankle was severely calcified. Also, like egg shell. This did not allow for clamping. An intraluminal occluder was used. A 1 mm intraluminal occluder was utilized. There is significant size mismatch between the 6 mm vein graft and the 1 mm outflow artery, but hopefully they will provide enough runoff for the graft to stay open. At the conclusion of the procedure, he had a palpable graft pulse and excellent flow over the posterior tibial artery with a pink hyperemic foot. DESCRIPTION OF PROCEDURE: After informed consent, the patient was taken to the operating room. A general anesthetic was administered and the patient was flopped onto the prone position. The posterior calf was then prepped and draped. Prior to this, the small saphenous vein was mapped with ultrasound and marked. An incision was then made over the markings and a small saphenous vein was harvested for approximately 10 inches in the usual manner. The branches on the vein side were ligated with 4-0 silk ties on the ____ side clips. The vein was distended with heparinized saline and valve lysis was performed. The wound was then approximated with absorbable suture, the skin with nicolle. The patient was placed in the supine position and then we reprepped and draped. Likewise, the great saphenous vein was mapped with ultrasound and marked. The vein was then harvested from the saphenofemoral junction to the distal thigh where the vein had been harvested from that point distally for coronary artery bypass. Likewise, the vein was distended with heparinized saline and valve lysis was performed. The two vein segments were then sutured using a spatulated technique a 7-0 Prolene and loupe magnification. The popliteal artery was then exposed below the knee and encircled with vessel loops proximally and distally. A longitudinal arteriotomy was made. The patient had been given 5000 units of heparin prior to this. The graft was sutured ____ to side using 6-0 Prolene. After completing the anastomosis, there was excellent pulsatile flow through the vein graft, which was then irrigated retrograde with heparinized saline. The posterior tibial artery was then dissected just proximal to the medial malleolus. The vessel was again quite heavily calcified, but did contain Doppler flow albeit faint. The graft was then placed in a subcutaneous tunnel to the posterior tibial incision. An arteriotomy was made in the anterior aspect of the posterior tibial artery and there was a lumen present. A #1, 0.5 mm occluder was placed proximally and a 1 mm occluder placed distally. The vein was then sutured to side using 7-0 Prolene, again using loupe magnification. After completing the anastomosis, the graft was flushed and flow restored. No protamine was given. The wounds were irrigated and closed with absorbable suture. The skin with either nylon or nicolle. Sterile dressings were applied. The patient was taken to the recovery room in satisfactory condition. ESTIMATED BLOOD LOSS: 150 mL. DRAINS: None. SPECIMENS: None. JENNA KELLER MD DR: YAMILETH/earnest JOB#: [id number] / [id number]
[2016-11-30] MEDS: MEROPENEM 500 MG in IV NORMAL SALINE 50ML 50 ML IV SCH ×3 (06:00→18:00)
[2016-11-30 06:25] LABS: BASO % 0 % (0-3); EOS % 0 % (0-3); HEMATOCRIT 26.4 % (39.0-53.0); HEMOGLOBIN 9.3 g/dL (13.0-17.5); LYMPH % 13 % (24-48); MEAN CORPUSCULAR HEMOGLOBIN 31 pg (25-35); MEAN CORPUSCULAR HGB CONC 35 g/dL (31-37); MEAN CORPUSCULAR VOLUME 87 fL (79-100); MONO % 9 % (0-9); NEUT % 78 % (31-73); PLATELET COUNT 274 x10^3/uL (140-400); RED BLOOD COUNT 3.03 x10^6/uL (4.30-5.70); RED CELL DISTRIBUTION WIDTH 14.7 % (11.5-14.5); WHITE BLOOD COUNT 8.1 x10^3/uL (4.0-11.0)
[2016-11-30 06:42] LABS: ALBUMIN 2.1 g/dL (3.4-5.0); ALBUMIN/GLOBULIN RATIO 0.5 (1.0-1.7); CALCIUM 7.9 mg/dL (8.5-10.1); CREATININE 1.7 mg/dL (0.7-1.3); GFR 39.2; POTASSIUM 4.5 mmol/L (3.5-5.1); TOTAL BILIRUBIN 0.4 mg/dL (0.2-1.0); TOTAL PROTEIN 6.1 g/dL (6.4-8.2)
[2016-11-30 06:54] LABS: INR 1.8 (0.8-1.1); PROTHROMBIN TIME PATIENT 20.1 SEC (11.7-14.0)
[2016-11-30] MEDS ORDERED: PROCHLORPERAZINE 10 MG/2 ML VIAL. IV PRN (07:00)
[2016-11-30] MEDS ORDERED: IV RINGERS,LACTATED 1000ML 1,000 ML IV SCH (07:00)
[2016-11-30] MEDS ORDERED: LIDOCAINE 1% 1 ML SYRINGE. ID PRN (07:00)
[2016-11-30] MEDS ORDERED: FENTANYL PF 100 MCG/2 ML VIAL. IV PRN ×2 (07:00)
[2016-11-30] MEDS ORDERED: MORPHINE SULFATE 2 MG/ML DISP.SYRIN. IV PRN (07:00)
[2016-11-30] MEDS ORDERED: HYDROMORPHONE 2 MG/ML VIAL. IV PRN (07:00)
--- NOTE | 2016-11-30 07:48 | PDOC ---
SURGICAL PROGRESS NOTE Subjective pt comfortable. Vital Signs Vital Signs Date Time Temp Pulse Resp B/P Pulse Ox O2 Delivery O2 Flow Rate FiO2 11/30/16 00:50 21 11/29/16 23:49 93 Room Air 11/29/16 20:50 97.1 58 125/80 2.0 97.1 I&O Intake and Output 11/30/16 07:00 Intake Total 1737 ml Output Total 1475 ml Balance 262 ml Intake Oral 730 ml IV Total 1007 ml Output Urine Total 1175 ml Estimated Blood Loss 300 ml # Voids 1 # Bowel Movements 1 Extremities: Other (dressings left leg dry ; 2+ graft pulse medial right calf; forefoot warm and hyperemic; excellent biphasic arterial doppler flow over the post. tib. artery) Labs Laboratory Tests Test 11/28/16 11:17 11/28/16 14:10 11/28/16 16:14 11/28/16 16:44 Glucose (Fingerstick) 176mg/dL (70-99) 66mg/dL (70-99) 100mg/dL (70-99) Prothrombin Time 24.0SEC (11.7-14.0) Prothromb Time International Ratio 2.3 (0.8-1.1) Triglycerides Level 131mg/dL (0-150) Cholesterol Level 174mg/dL (0-200) LDL Cholesterol, Calculated 123mg/dL (0-100) VLDL Cholesterol, Calculated 26mg/dL (0-40) HDL Cholesterol 25mg/dL (40-60) Cholesterol/HDL Ratio 7.0 Test 11/28/16 21:05 11/29/16 03:58 11/29/16 07:48 11/29/16 11:13 Glucose (Fingerstick) 156mg/dL (70-99) 163mg/dL (70-99) 192mg/dL (70-99) White Blood Count 6.9x10^3/uL (4.0-11.0) Red Blood Count 3.32x10^6/uL (4.30-5.70) Hemoglobin 10.1g/dL (13.0-17.5) Hematocrit 29.4% (39.0-53.0) Mean Corpuscular Volume 88fL (79-100) Mean Corpuscular Hemoglobin 30pg (25-35) Mean Corpuscular Hemoglobin Concent 34g/dL (31-37) Red Cell Distribution Width 14.7% (11.5-14.5) Platelet Count 281x10^3/uL (140-400) Neutrophils (%) (Auto) 58% (31-73) Lymphocytes (%) (Auto) 29% (24-48) Monocytes (%) (Auto) 11% (0-9) Eosinophils (%) (Auto) 2% (0-3) Basophils (%) (Auto) 1% (0-3) Neutrophils # (Auto) 4.0x10^3uL (1.8-7.7) Lymphocytes # (Auto) 2.0x10^3/uL (1.0-4.8) Monocytes # (Auto) 0.7x10^3/uL (0.0-1.1) Eosinophils # (Auto) 0.1x10^3/uL (0.0-0.7) Basophils # (Auto) 0.0x10^3/uL (0.0-0.2) Prothrombin Time 21.2SEC (11.7-14.0) Prothromb Time International Ratio 2.0 (0.8-1.1) Sodium Level 135mmol/L (136-145) Potassium Level 3.8mmol/L (3.5-5.1) Chloride Level 101mmol/L (98-107) Carbon Dioxide Level 28mmol/L (21-32) Anion Gap 6 (6-14) Blood Urea Nitrogen 16mg/dL (8-26) Creatinine 1.2mg/dL (0.7-1.3) Estimated GFR (Cockcroft-Gault) 58.6 BUN/Creatinine Ratio 13 (6-20) Glucose Level 155mg/dL (70-99) Calcium Level 8.5mg/dL (8.5-10.1) Total Bilirubin 0.5mg/dL (0.2-1.0) Aspartate Amino Transf (AST/SGOT) 20U/L (15-37) Alanine Aminotransferase (ALT/SGPT) 15U/L (16-63) Alkaline Phosphatase 86U/L (46-116) Total Protein 7.5g/dL (6.4-8.2) Albumin 2.5g/dL (3.4-5.0) Albumin/Globulin Ratio 0.5 (1.0-1.7) Test 11/29/16 18:19 11/29/16 21:21 11/30/16 06:00 Glucose (Fingerstick) 219mg/dL (70-99) 220mg/dL (70-99) White Blood Count 8.1x10^3/uL (4.0-11.0) Red Blood Count 3.03x10^6/uL (4.30-5.70) Hemoglobin 9.3g/dL (13.0-17.5) Hematocrit 26.4% (39.0-53.0) Mean Corpuscular Volume 87fL (79-100) Mean Corpuscular Hemoglobin 31pg (25-35) Mean Corpuscular Hemoglobin Concent 35g/dL (31-37) Red Cell Distribution Width 14.7% (11.5-14.5) Platelet Count 274x10^3/uL (140-400) Neutrophils (%) (Auto) 78% (31-73) Lymphocytes (%) (Auto) 13% (24-48) Monocytes (%) (Auto) 9% (0-9) Eosinophils (%) (Auto) 0% (0-3) Basophils (%) (Auto) 0% (0-3) Neutrophils # (Auto) 6.4x10^3uL (1.8-7.7) Lymphocytes # (Auto) 1.0x10^3/uL (1.0-4.8) Monocytes # (Auto) 0.7x10^3/uL (0.0-1.1) Eosinophils # (Auto) 0.0x10^3/uL (0.0-0.7) Basophils # (Auto) 0.0x10^3/uL (0.0-0.2) Prothrombin Time 20.1SEC (11.7-14.0) Prothromb Time International Ratio 1.8 (0.8-1.1) Sodium Level 136mmol/L (136-145) Potassium Level 4.5mmol/L (3.5-5.1) Chloride Level 102mmol/L (98-107) Carbon Dioxide Level 25mmol/L (21-32) Anion Gap 9 (6-14) Blood Urea Nitrogen 23mg/dL (8-26) Creatinine 1.7mg/dL (0.7-1.3) Estimated GFR (Cockcroft-Gault) 39.2 BUN/Creatinine Ratio 14 (6-20) Glucose Level 337mg/dL (70-99) Calcium Level 7.9mg/dL (8.5-10.1) Total Bilirubin 0.4mg/dL (0.2-1.0) Aspartate Amino Transf (AST/SGOT) 14U/L (15-37) Alanine Aminotransferase (ALT/SGPT) 11U/L (16-63) Alkaline Phosphatase 66U/L (46-116) Total Protein 6.1g/dL (6.4-8.2) Albumin 2.1g/dL (3.4-5.0) Albumin/Globulin Ratio 0.5 (1.0-1.7) Laboratory Tests Test 11/29/16 07:48 11/29/16 11:13 11/29/16 18:19 11/29/16 21:21 Glucose (Fingerstick) 163mg/dL (70-99) 192mg/dL (70-99) 219mg/dL (70-99) 220mg/dL (70-99) Test 11/30/16 06:00 White Blood Count 8.1x10^3/uL (4.0-11.0) Red Blood Count 3.03x10^6/uL (4.30-5.70) Hemoglobin 9.3g/dL (13.0-17.5) Hematocrit 26.4% (39.0-53.0) Mean Corpuscular Volume 87fL (79-100) Mean Corpuscular Hemoglobin 31pg (25-35) Mean Corpuscular Hemoglobin Concent 35g/dL (31-37) Red Cell Distribution Width 14.7% (11.5-14.5) Platelet Count 274x10^3/uL (140-400) Neutrophils (%) (Auto) 78% (31-73) Lymphocytes (%) (Auto) 13% (24-48) Monocytes (%) (Auto) 9% (0-9) Eosinophils (%) (Auto) 0% (0-3) Basophils (%) (Auto) 0% (0-3) Neutrophils # (Auto) 6.4x10^3uL (1.8-7.7) Lymphocytes # (Auto) 1.0x10^3/uL (1.0-4.8) Monocytes # (Auto) 0.7x10^3/uL (0.0-1.1) Eosinophils # (Auto) 0.0x10^3/uL (0.0-0.7) Basophils # (Auto) 0.0x10^3/uL (0.0-0.2) Prothrombin Time 20.1SEC (11.7-14.0) Prothromb Time International Ratio 1.8 (0.8-1.1) Sodium Level 136mmol/L (136-145) Potassium Level 4.5mmol/L (3.5-5.1) Chloride Level 102mmol/L (98-107) Carbon Dioxide Level 25mmol/L (21-32) Anion Gap 9 (6-14) Blood Urea Nitrogen 23mg/dL (8-26) Creatinine 1.7mg/dL (0.7-1.3) Estimated GFR (Cockcroft-Gault) 39.2 BUN/Creatinine Ratio 14 (6-20) Glucose Level 337mg/dL (70-99) Calcium Level 7.9mg/dL (8.5-10.1) Total Bilirubin 0.4mg/dL (0.2-1.0) Aspartate Amino Transf (AST/SGOT) 14U/L (15-37) Alanine Aminotransferase (ALT/SGPT) 11U/L (16-63) Alkaline Phosphatase 66U/L (46-116) Total Protein 6.1g/dL (6.4-8.2) Albumin 2.1g/dL (3.4-5.0) Albumin/Globulin Ratio 0.5 (1.0-1.7) Problem List Problems Medical Problems: (1) Cellulitis of right toe Status: Acute (2) Osteomyelitis Status: Acute (3) Peripheral vascular disease Status: Acute Assessment/Plan Imp: 1. patent right popliteal to post tib bypass graft with spliced great and small saphenous vein graft 2. dry gangrene of the the 3rd toe Rec: favor conservative approach to forefoot - amputation of the 3rd toe and debridement of the wound laterally, possible wound vac application; preservation of the great toe for functional benefit. Problems: JENNA HANDY II, MD Nov 30, 2016 07:48
[2016-11-30] MEDS: CARVEDILOL 12.5 MG TABLET PO SCH ×3 (08:00→18:10)
[2016-11-30] MEDS: INSULIN ASPART 300 UNITS/3 ML INSULN.PEN SQ SCH ×6 (08:00→18:14)
[2016-11-30] MEDS: LACTOBACILLUS ACIDOPH & BULGAR 1 TABLET. PO SCH ×4 (08:00→18:09)
[2016-11-30] MEDS: ASPIRIN 325 MG TABLET PO SCH (08:30)
[2016-11-30] MEDS: LOSARTAN POTASSIUM 50 MG TABLET. PO SCH (08:31)
[2016-11-30] MEDS: OMEGA-3 FATTY ACIDS/FISH OIL 1,000 MG CAPSULE. PO SCH (08:31)
[2016-11-30] MEDS: HYDROCHLOROTHIAZIDE 12.5 MG CAPSULE. PO SCH (08:31)
[2016-11-30] MEDS: ESCITALOPRAM 10 MG TABLET. PO SCH (08:32)
[2016-11-30] MEDS: SODIUM BICARBONATE 650 MG TABLET. PO SCH ×2 (08:32→21:29)
--- NOTE | 2016-11-30 09:46 | PDOC ---
Infectious Disease Note Subjective Subjective Doing ok Post -op. no loose stool ROS ROS GEN: Denies fevers, chills, sweats HEENT: Denies blurred vision, sore throat CV: Denies chest pain RESP: Denies shortness of air, cough GI: Denies n/v/d NEURO: Denies confusion, dizziness MSK: Denies weakness, joint pain/swelling Vital Sign Vital Signs Vital Signs Date Time Temp Pulse Resp B/P Pulse Ox O2 Delivery O2 Flow Rate FiO2 11/30/16 08:33 66 173/77 11/30/16 08:11 Nasal Cannula 2 11/30/16 07:30 97.6 14 94 97.6 Physical Exam PHYSICAL EXAM GENERAL: NAD, Alert, coop HEENT: PERRL, OC/OP - clear NECK: Supple, no JVD, no LN LUNGS: Clear HEART: S1S2, no gallop, no murmur ABD: Soft, NT, no organomegaly, no rebound, Obese EXT: No edema, no cyanosis. LE wound dressed. Toe dry gangrene [employer]UR [employer]: Alert, oriented x 3, no focal neurologic deficit SKIN: No rash IV: ok Labs Lab Laboratory Tests Test 11/29/16 11:13 11/29/16 18:19 11/29/16 21:21 11/30/16 06:00 Glucose (Fingerstick) 192mg/dL (70-99) 219mg/dL (70-99) 220mg/dL (70-99) White Blood Count 8.1x10^3/uL (4.0-11.0) Red Blood Count 3.03x10^6/uL (4.30-5.70) Hemoglobin 9.3g/dL (13.0-17.5) Hematocrit 26.4% (39.0-53.0) Mean Corpuscular Volume 87fL (79-100) Mean Corpuscular Hemoglobin 31pg (25-35) Mean Corpuscular Hemoglobin Concent 35g/dL (31-37) Red Cell Distribution Width 14.7% (11.5-14.5) Platelet Count 274x10^3/uL (140-400) Neutrophils (%) (Auto) 78% (31-73) Lymphocytes (%) (Auto) 13% (24-48) Monocytes (%) (Auto) 9% (0-9) Eosinophils (%) (Auto) 0% (0-3) Basophils (%) (Auto) 0% (0-3) Neutrophils # (Auto) 6.4x10^3uL (1.8-7.7) Lymphocytes # (Auto) 1.0x10^3/uL (1.0-4.8) Monocytes # (Auto) 0.7x10^3/uL (0.0-1.1) Eosinophils # (Auto) 0.0x10^3/uL (0.0-0.7) Basophils # (Auto) 0.0x10^3/uL (0.0-0.2) Prothrombin Time 20.1SEC (11.7-14.0) Prothromb Time International Ratio 1.8 (0.8-1.1) Sodium Level 136mmol/L (136-145) Potassium Level 4.5mmol/L (3.5-5.1) Chloride Level 102mmol/L (98-107) Carbon Dioxide Level 25mmol/L (21-32) Anion Gap 9 (6-14) Blood Urea Nitrogen 23mg/dL (8-26) Creatinine 1.7mg/dL (0.7-1.3) Estimated GFR (Cockcroft-Gault) 39.2 BUN/Creatinine Ratio 14 (6-20) Glucose Level 337mg/dL (70-99) Calcium Level 7.9mg/dL (8.5-10.1) Total Bilirubin 0.4mg/dL (0.2-1.0) Aspartate Amino Transf (AST/SGOT) 14U/L (15-37) Alanine Aminotransferase (ALT/SGPT) 11U/L (16-63) Alkaline Phosphatase 66U/L (46-116) Total Protein 6.1g/dL (6.4-8.2) Albumin 2.1g/dL (3.4-5.0) Albumin/Globulin Ratio 0.5 (1.0-1.7) Test 11/30/16 08:11 Glucose (Fingerstick) 268mg/dL (70-99) Micro IMPRESSION MRI 11/24 1. Findings are compatible with osteomyelitis involving the proximal phalanx of the 3rd toe, and possibly also at the 3rd metatarsal head. Marrow edema within the middle 3rd phalanx may just be reactive. 2. There is generalized soft tissue edema and muscle edema without drainable fluid collection or abscess. 3. Mild marrow edema and low T1 signal at the distal remnant of the 5th metatarsal could be related to the recent surgery, but mild osteomyelitis is not excludable here, particularly if there is an overlying ulceration. 4. Mild 3rd flexor tenosynovitis. Objective Assessment Wet Gangrene imporved to dry- right 3 rd toe Staph aureus 2/2 PCN allergy H/o strep PAD - s/p by bypass 11/29. right popiteal to posterior tibial artery bypass with spliced great and small saphenous veins Loose stool - some better today Plan Plan of Care Cont Meropenem/Micafungin. D/c Zyvox 11/28 Cont probiotics F/u labs in am and cults Await further debridement D/w family DEVYN MOSQUEDA MD Nov 30, 2016 09:46
--- NOTE | 2016-11-30 10:14 | PDOC ---
PROGRESS NOTES Chief Complaint Chief Complaint a/p 1. 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 dm2 on insulin 4. H/O CAD post CAG 5. HTN 6. HLD 7. peripheral artery disease 8 anemia of CKD 9. CKD4 10. H/O DVT OF right leg on Coumadin Plan surgery planning today IV abx SSI Follow ID recommendation Pain control supportive care labs reviwed,. History of Present Illness History of Present Illness no fever no chills no chest pain Vitals Vitals Vital Signs Date Time Temp Pulse Resp B/P Pulse Ox O2 Delivery O2 Flow Rate FiO2 11/30/16 08:33 66 173/77 11/30/16 08:11 Nasal Cannula 2 11/30/16 07:30 97.6 14 94 97.6 Physical Exam General: Alert, Oriented X3, No acute distress Heart: Regular rate, Normal S1, Normal S2, No murmurs Lungs: Clear, Other Abdomen: Normal bowel sounds, Soft, No tenderness, No masses Extremities: Other (dressings left leg dry ; 2+ graft pulse medial right calf; forefoot warm and hyperemic; excellent biphasic arterial doppler flow over the post. tib. artery) Skin: Other (Right foot swollen and with erythema to forefoot and lateral aspect of foot. Dry, black scabbed wound base to previously amputated fourth and fifth toes of the right foot. Black, necrotic third toe of right foot.) Labs LABS Laboratory Tests Test 11/29/16 11:13 11/29/16 18:19 11/29/16 21:21 11/30/16 06:00 Glucose (Fingerstick) 192mg/dL (70-99) 219mg/dL (70-99) 220mg/dL (70-99) White Blood Count 8.1x10^3/uL (4.0-11.0) Red Blood Count 3.03x10^6/uL (4.30-5.70) Hemoglobin 9.3g/dL (13.0-17.5) Hematocrit 26.4% (39.0-53.0) Mean Corpuscular Volume 87fL (79-100) Mean Corpuscular Hemoglobin 31pg (25-35) Mean Corpuscular Hemoglobin Concent 35g/dL (31-37) Red Cell Distribution Width 14.7% (11.5-14.5) Platelet Count 274x10^3/uL (140-400) Neutrophils (%) (Auto) 78% (31-73) Lymphocytes (%) (Auto) 13% (24-48) Monocytes (%) (Auto) 9% (0-9) Eosinophils (%) (Auto) 0% (0-3) Basophils (%) (Auto) 0% (0-3) Neutrophils # (Auto) 6.4x10^3uL (1.8-7.7) Lymphocytes # (Auto) 1.0x10^3/uL (1.0-4.8) Monocytes # (Auto) 0.7x10^3/uL (0.0-1.1) Eosinophils # (Auto) 0.0x10^3/uL (0.0-0.7) Basophils # (Auto) 0.0x10^3/uL (0.0-0.2) Prothrombin Time 20.1SEC (11.7-14.0) Prothromb Time International Ratio 1.8 (0.8-1.1) Sodium Level 136mmol/L (136-145) Potassium Level 4.5mmol/L (3.5-5.1) Chloride Level 102mmol/L (98-107) Carbon Dioxide Level 25mmol/L (21-32) Anion Gap 9 (6-14) Blood Urea Nitrogen 23mg/dL (8-26) Creatinine 1.7mg/dL (0.7-1.3) Estimated GFR (Cockcroft-Gault) 39.2 BUN/Creatinine Ratio 14 (6-20) Glucose Level 337mg/dL (70-99) Calcium Level 7.9mg/dL (8.5-10.1) Total Bilirubin 0.4mg/dL (0.2-1.0) Aspartate Amino Transf (AST/SGOT) 14U/L (15-37) Alanine Aminotransferase (ALT/SGPT) 11U/L (16-63) Alkaline Phosphatase 66U/L (46-116) Total Protein 6.1g/dL (6.4-8.2) Albumin 2.1g/dL (3.4-5.0) Albumin/Globulin Ratio 0.5 (1.0-1.7) Test 11/30/16 08:11 Glucose (Fingerstick) 268mg/dL (70-99) Assessment and Plan Assessmemt and Plan Problems Medical Problems: (1) Cellulitis of right toe Status: Acute (2) Osteomyelitis Status: Acute (3) Peripheral vascular disease Status: Acute Problems: Comment Review of Relevant I have reviewed the following items gage (where applicable) has been applied. Labs Laboratory Tests Test 11/28/16 11:17 11/28/16 14:10 11/28/16 16:14 11/28/16 16:44 Glucose (Fingerstick) 176mg/dL (70-99) 66mg/dL (70-99) 100mg/dL (70-99) Prothrombin Time 24.0SEC (11.7-14.0) Prothromb Time International Ratio 2.3 (0.8-1.1) Triglycerides Level 131mg/dL (0-150) Cholesterol Level 174mg/dL (0-200) LDL Cholesterol, Calculated 123mg/dL (0-100) VLDL Cholesterol, Calculated 26mg/dL (0-40) HDL Cholesterol 25mg/dL (40-60) Cholesterol/HDL Ratio 7.0 Test 11/28/16 21:05 11/29/16 03:58 11/29/16 07:48 11/29/16 11:13 Glucose (Fingerstick) 156mg/dL (70-99) 163mg/dL (70-99) 192mg/dL (70-99) White Blood Count 6.9x10^3/uL (4.0-11.0) Red Blood Count 3.32x10^6/uL (4.30-5.70) Hemoglobin 10.1g/dL (13.0-17.5) Hematocrit 29.4% (39.0-53.0) Mean Corpuscular Volume 88fL (79-100) Mean Corpuscular Hemoglobin 30pg (25-35) Mean Corpuscular Hemoglobin Concent 34g/dL (31-37) Red Cell Distribution Width 14.7% (11.5-14.5) Platelet Count 281x10^3/uL (140-400) Neutrophils (%) (Auto) 58% (31-73) Lymphocytes (%) (Auto) 29% (24-48) Monocytes (%) (Auto) 11% (0-9) Eosinophils (%) (Auto) 2% (0-3) Basophils (%) (Auto) 1% (0-3) Neutrophils # (Auto) 4.0x10^3uL (1.8-7.7) Lymphocytes # (Auto) 2.0x10^3/uL (1.0-4.8) Monocytes # (Auto) 0.7x10^3/uL (0.0-1.1) Eosinophils # (Auto) 0.1x10^3/uL (0.0-0.7) Basophils # (Auto) 0.0x10^3/uL (0.0-0.2) Prothrombin Time 21.2SEC (11.7-14.0) Prothromb Time International Ratio 2.0 (0.8-1.1) Sodium Level 135mmol/L (136-145) Potassium Level 3.8mmol/L (3.5-5.1) Chloride Level 101mmol/L (98-107) Carbon Dioxide Level 28mmol/L (21-32) Anion Gap 6 (6-14) Blood Urea Nitrogen 16mg/dL (8-26) Creatinine 1.2mg/dL (0.7-1.3) Estimated GFR (Cockcroft-Gault) 58.6 BUN/Creatinine Ratio 13 (6-20) Glucose Level 155mg/dL (70-99) Calcium Level 8.5mg/dL (8.5-10.1) Total Bilirubin 0.5mg/dL (0.2-1.0) Aspartate Amino Transf (AST/SGOT) 20U/L (15-37) Alanine Aminotransferase (ALT/SGPT) 15U/L (16-63) Alkaline Phosphatase 86U/L (46-116) Total Protein 7.5g/dL (6.4-8.2) Albumin 2.5g/dL (3.4-5.0) Albumin/Globulin Ratio 0.5 (1.0-1.7) Test 11/29/16 18:19 11/29/16 21:21 11/30/16 06:00 11/30/16 08:11 Glucose (Fingerstick) 219mg/dL (70-99) 220mg/dL (70-99) 268mg/dL (70-99) White Blood Count 8.1x10^3/uL (4.0-11.0) Red Blood Count 3.03x10^6/uL (4.30-5.70) Hemoglobin 9.3g/dL (13.0-17.5) Hematocrit 26.4% (39.0-53.0) Mean Corpuscular Volume 87fL (79-100) Mean Corpuscular Hemoglobin 31pg (25-35) Mean Corpuscular Hemoglobin Concent 35g/dL (31-37) Red Cell Distribution Width 14.7% (11.5-14.5) Platelet Count 274x10^3/uL (140-400) Neutrophils (%) (Auto) 78% (31-73) Lymphocytes (%) (Auto) 13% (24-48) Monocytes (%) (Auto) 9% (0-9) Eosinophils (%) (Auto) 0% (0-3) Basophils (%) (Auto) 0% (0-3) Neutrophils # (Auto) 6.4x10^3uL (1.8-7.7) Lymphocytes # (Auto) 1.0x10^3/uL (1.0-4.8) Monocytes # (Auto) 0.7x10^3/uL (0.0-1.1) Eosinophils # (Auto) 0.0x10^3/uL (0.0-0.7) Basophils # (Auto) 0.0x10^3/uL (0.0-0.2) Prothrombin Time 20.1SEC (11.7-14.0) Prothromb Time International Ratio 1.8 (0.8-1.1) Sodium Level 136mmol/L (136-145) Potassium Level 4.5mmol/L (3.5-5.1) Chloride Level 102mmol/L (98-107) Carbon Dioxide Level 25mmol/L (21-32) Anion Gap 9 (6-14) Blood Urea Nitrogen 23mg/dL (8-26) Creatinine 1.7mg/dL (0.7-1.3) Estimated GFR (Cockcroft-Gault) 39.2 BUN/Creatinine Ratio 14 (6-20) Glucose Level 337mg/dL (70-99) Calcium Level 7.9mg/dL (8.5-10.1) Total Bilirubin 0.4mg/dL (0.2-1.0) Aspartate Amino Transf (AST/SGOT) 14U/L (15-37) Alanine Aminotransferase (ALT/SGPT) 11U/L (16-63) Alkaline Phosphatase 66U/L (46-116) Total Protein 6.1g/dL (6.4-8.2) Albumin 2.1g/dL (3.4-5.0) Albumin/Globulin Ratio 0.5 (1.0-1.7) Laboratory Tests Test 11/29/16 11:13 11/29/16 18:19 11/29/16 21:21 11/30/16 06:00 Glucose (Fingerstick) 192mg/dL (70-99) 219mg/dL (70-99) 220mg/dL (70-99) White Blood Count 8.1x10^3/uL (4.0-11.0) Red Blood Count 3.03x10^6/uL (4.30-5.70) Hemoglobin 9.3g/dL (13.0-17.5) Hematocrit 26.4% (39.0-53.0) Mean Corpuscular Volume 87fL (79-100) Mean Corpuscular Hemoglobin 31pg (25-35) Mean Corpuscular Hemoglobin Concent 35g/dL (31-37) Red Cell Distribution Width 14.7% (11.5-14.5) Platelet Count 274x10^3/uL (140-400) Neutrophils (%) (Auto) 78% (31-73) Lymphocytes (%) (Auto) 13% (24-48) Monocytes (%) (Auto) 9% (0-9) Eosinophils (%) (Auto) 0% (0-3) Basophils (%) (Auto) 0% (0-3) Neutrophils # (Auto) 6.4x10^3uL (1.8-7.7) Lymphocytes # (Auto) 1.0x10^3/uL (1.0-4.8) Monocytes # (Auto) 0.7x10^3/uL (0.0-1.1) Eosinophils # (Auto) 0.0x10^3/uL (0.0-0.7) Basophils # (Auto) 0.0x10^3/uL (0.0-0.2) Prothrombin Time 20.1SEC (11.7-14.0) Prothromb Time International Ratio 1.8 (0.8-1.1) Sodium Level 136mmol/L (136-145) Potassium Level 4.5mmol/L (3.5-5.1) Chloride Level 102mmol/L (98-107) Carbon Dioxide Level 25mmol/L (21-32) Anion Gap 9 (6-14) Blood Urea Nitrogen 23mg/dL (8-26) Creatinine 1.7mg/dL (0.7-1.3) Estimated GFR (Cockcroft-Gault) 39.2 BUN/Creatinine Ratio 14 (6-20) Glucose Level 337mg/dL (70-99) Calcium Level 7.9mg/dL (8.5-10.1) Total Bilirubin 0.4mg/dL (0.2-1.0) Aspartate Amino Transf (AST/SGOT) 14U/L (15-37) Alanine Aminotransferase (ALT/SGPT) 11U/L (16-63) Alkaline Phosphatase 66U/L (46-116) Total Protein 6.1g/dL (6.4-8.2) Albumin 2.1g/dL (3.4-5.0) Albumin/Globulin Ratio 0.5 (1.0-1.7) Test 11/30/16 08:11 Glucose (Fingerstick) 268mg/dL (70-99) Medications Current Medications Vancomycin HCl 1 each 1 each PRN DAILY PRN MC SEE COMMENTS; Start 11/26/16 at 12 :45; Stop 11/26/16 at 13:30; Status DC Sodium Chloride 500 ml @ 500 mls/hr 1X ONCE IV Last administered on 11/26/16 14:52; Start 11/26/16 at 12:45; Stop 11/26/16 at 13:44; Status DC Vancomycin HCl/ Sodium Chloride (Iv Sodium Chloride 0.9% 500ml Bag) 500 ml @ 250 mls/hr 1X ONCE IV Last administered on 11/26/16 13:09; Start 11/26/16 at 13 :00; Stop 11/26/16 at 14:59; Status DC Ondansetron HCl (Zofran) 4 mg PRN Q8HRS PRN IV NAUSEA/VOMITING; Start 11/26/16 at 12:45; Stop 11/26/16 at 15:59; Status DC Morphine Sulfate 2 mg 2 mg PRN Q2HR PRN IV PAIN; Start 11/26/16 at 12:45; Stop 11/27/16 at 12:44; Status DC Sodium Chloride 1,000 ml @ 125 mls/hr Q8H IV Last administered on 11/27/16 05: 57; Start 11/26/16 at 12:43; Stop 11/27/16 at 12:42; Status DC Meropenem 500 mg/ Sodium Chloride 50 ml @ 100 mls/hr Q6HRS IV Last administered on 11/30/16 06:00; Start 11/26/16 at 14:00 Micafungin Sodium 100 mg/Dextrose 100 ml @ 100 mls/hr Q24H IV Last administered on 11/29/16 22:02; Start 11/26/16 at 14:00 Linezolid (Zyvox Premix) 300 ml @ 300 mls/hr Q12HR IV Last administered on 11/28 08:38; Start 11/26/16 at 14:00; Stop 11/28/16 at 12:00; Status DC Acetaminophen (Tylenol) 650 mg PRN Q6HRS PRN PO MILD PAIN / TEMP; Start at 15:45 Ondansetron HCl (Zofran) 4 mg PRN Q6HRS PRN IV NAUSEA/VOMITING; Start 11/26/16 at 15:45 Acetaminophen/ Hydrocodone Bitart (Lortab 5/325) 1 tab PRN Q4HRS PRN PO PAIN Last administered on 11/29/16 23:49; Start 11/26/16 at 15:45 Insulin Aspart (Novolog) 0-9 UNITS TIDWMEALS SQ Last administered on 11/30/16 08:37; Start 11/26/16 at 17:00 Dextrose 12.5 gm PRN Q15MIN PRN IV SEE COMMENTS; Start 11/26/16 at 15:45 Aspirin (Harrison Aspirin) 325 mg DAILY PO Last administered on 11/30/16 08:30; Start 11/27/16 at 09:00 Carvedilol (Coreg) 6.25 mg BIDWMEALS PO Last administered on 11/28/16 08:40; Start 11/26/16 at 17:00; Stop 11/28/16 at 15:41; Status DC Sodium Bicarbonate (Sodium Bicarbonate) 650 mg BID PO Last administered on 08:32; Start 11/26/16 at 21:00 Escitalopram Oxalate (Lexapro) 20 mg DAILY PO Last administered on 11/30/16 08: 32; Start 11/27/16 at 09:00 Non-Formulary Medication 40 unit HS SQ ; Start 11/26/16 at 21:00; Stop 11/26/16 at 21:00; Status DC Non-Formulary Medication 14 unit TIDAC SQ ; Start 11/26/16 at 16:30; Stop at 16:30; Status DC Fish Oil (Fish Oil) 1,000 mg DAILY PO Last administered on 11/30/16 08:31; Start 11/27/16 at 09:00 Hydrochlorothiazide (Microzide) 12.5 mg DAILY PO Last administered on 11/30/16 08:31; Start 11/27/16 at 09:00 Insulin Detemir (Levemir) 40 units QHS SQ Last administered on 11/29/16 22:08; Start 11/26/16 at 21:00 Insulin Aspart (Novolog) 10 units TIDWMEALS SQ Last administered on 11/28/16 12 :43; Start 11/26/16 at 17:00 Losartan Potassium (Cozaar) 100 mg DAILY PO Last administered on 11/30/16 08:31 ; Start 11/27/16 at 09:00 Acetylcysteine (Mucomyst 20% Oral Solution) 600 mg BID PO Last administered on 11/28/16 22:07; Start 11/27/16 at 12:45; Stop 11/28/16 at 22:00; Status DC Ondansetron HCl (Zofran) 4 mg PRN Q6HRS PRN IV Nausea; Start 11/28/16 at 07:00; Stop 11/28/16 at 23:00; Status DC Fentanyl Citrate (Fentanyl 2ml Vial) 25 mcg PRN Q5MIN PRN IV MILD PAIN; Start 11/28/16 at 07:00; Stop 11/28/16 at 23:00; Status DC Fentanyl Citrate (Fentanyl 2ml Vial) 50 mcg PRN Q5MIN PRN IV MODERATE PAIN; Start 11/28/16 at 07:00; Stop 11/28/16 at 23:00; Status DC Morphine Sulfate 1 mg 1 mg PRN Q10MIN PRN IV SEVERE PAIN; Start 11/28/16 at 07: 00; Stop 11/28/16 at 23:00; Status DC Lactated Ringer's (Iv Lactated Ringers) 1,000 ml @ 0 mls/hr Q0M IV ; Start 11/28 at 07:00; Stop 11/28/16 at 18:59; Status DC Lidocaine HCl 2 ml 1X PRN PRN ID IV START; Start 11/28/16 at 07:00; Stop at 06:59; Status DC Hydromorphone HCl (Dilaudid) 0.5 mg PRN Q10MIN PRN IV SEVERE PAIN, Second choice; Start 11/28/16 at 07:00; Stop 11/28/16 at 23:00; Status DC Prochlorperazine Edisylate (Compazine) 5 mg PACU PRN PRN IV NAUSEA; Start at 07:00; Stop 11/28/16 at 23:00; Status DC Fentanyl Citrate (Fentanyl 2ml Vial) 25 mcg PRN Q5MIN PRN IV MILD PAIN; Start 11/29/16 at 07:00; Stop 11/29/16 at 18:00; Status DC Fentanyl Citrate (Fentanyl 2ml Vial) 50 mcg PRN Q5MIN PRN IV MODERATE PAIN; Start 11/29/16 at 07:00; Stop 11/29/16 at 18:00; Status DC Morphine Sulfate 1 mg 1 mg PRN Q10MIN PRN IV SEVERE PAIN; Start 11/29/16 at 07: 00; Stop 11/29/16 at 18:00; Status DC Lactated Ringer's (Iv Lactated Ringers) 1,000 ml @ 30 mls/hr Q24H IV Last administered on 11/29/16t 12:30; Start 11/29/16 at 07:00; Stop 11/29/16 at 18:59; Status DC Lidocaine HCl 2 ml 1X PRN PRN ID IV START; Start 11/29/16 at 07:00; Stop at 18:00; Status DC Hydromorphone HCl (Dilaudid) 0.5 mg PRN Q10MIN PRN IV SEVERE PAIN, Second choice; Start 11/29/16 at 07:00; Stop 11/29/16 at 18:00; Status DC Prochlorperazine Edisylate (Compazine) 5 mg PACU PRN PRN IV NAUSEA; Start at 07:00; Stop 11/29/16 at 18:00; Status DC Carvedilol 12.5 mg 12.5 mg BIDWMEALS PO Last administered on 11/30/16 08:33; Start 11/28/16 at 17:00 Cefazolin Sodium/ Dextrose (Ancef 2gm Premix) 50 ml @ 100 mls/hr 1X ONCE IV ; Start 11/29/16 at 06:00; Stop 11/29/16 at 06:29; Status DC Zolpidem Tartrate (Ambien) 5 mg 1X ONCE PO Last administered on 11/28/16 22:07 ; Start 11/28/16 at 22:00; Stop 11/28/16 at 22:01; Status DC Phytonadione (Vitamin K ) 1 mg 1X ONCE SQ Last administered on 23:43; Start 11/29/16 at 00:00; Stop 11/29/16 at 00:01; Status DC Hydralazine HCl (Apresoline) 10 mg PRN Q4HRS PRN IVP ELEVATED BP, SEE COMMENTS ; Start 11/29/16 at 08:30 Lactobacillus Acidophilus (Bacid, Svitlana-Bid) 1 tab TIDWMEALS PO Last administered on 11/30/16 08:33; Start 11/29/16 at 12:00 Furosemide 40 mg 40 mg 1X ONCE IVP ; Start 11/29/16 at 12:45; Stop 11/29/16 at 12 :45; Status DC Heparin Sodium (Porcine)/Sodium Chloride (Iv Sodium Chloride 0.9% 500ml Bag) 505 ml @ 505 mls/hr 1X PERIOP ONCE IRR Last administered on 11/29/16 13:48; Start 11/29/16 at 15:00; Stop 11/29/16 at 15:59; Status DC Fentanyl Citrate (Fentanyl 2ml Vial) 25 mcg PRN Q5MIN PRN IV MILD PAIN; Start 11/30/16 at 07:00; Stop 12/01/16 at 06:59 Fentanyl Citrate (Fentanyl 2ml Vial) 50 mcg PRN Q5MIN PRN IV MODERATE PAIN; Start 11/30/16 at 07:00; Stop 12/01/16 at 06:59 Morphine Sulfate 1 mg 1 mg PRN Q10MIN PRN IV SEVERE PAIN; Start 11/30/16 at 07: 00; Stop 12/01/16 at 06:59 Lactated Ringer's (Iv Lactated Ringers) 1,000 ml @ 0 mls/hr Q0M IV ; Start 11/30 at 07:00; Stop 11/30/16 at 18:59 Lidocaine HCl 2 ml 1X PRN PRN ID IV START; Start 11/30/16 at 07:00; Stop at 06:59 Hydromorphone HCl (Dilaudid) 0.5 mg PRN Q10MIN PRN IV SEVERE PAIN, Second choice; Start 11/30/16 at 07:00; Stop 12/01/16 at 06:59 Prochlorperazine Edisylate (Compazine) 5 mg PACU PRN PRN IV NAUSEA; Start at 07:00; Stop 12/01/16 at 06:59 Fentanyl Citrate (Fentanyl 2ml Vial) 25 mcg PRN Q5MIN PRN IV MILD PAIN; Start 11/29/16 at 18:45 Fentanyl Citrate (Fentanyl 2ml Vial) 50 mcg PRN Q5MIN PRN IV MODERATE PAIN Last administered on 11/29/16t 18:55; Start 11/29/16 at 18:45; Stop 11/29/16 at 21: 00; Status DC Hydromorphone HCl (Dilaudid) 0.5 mg PRN Q10MIN PRN IV SEVERE PAIN, Second choice; Start 11/29/16 at 18:45; Stop 11/29/16 at 21:00; Status DC Morphine Sulfate 1 mg PRN Q10MIN PRN IV SEVERE PAIN; Start 11/29/16 at 18:45; Stop 11/29/16 at 21:00; Status DC Ondansetron HCl (Zofran) 4 mg PRN Q6HRS PRN IV Nausea; Start 11/29/16 at 18:45; Stop 11/29/16 at 21:00; Status DC Prochlorperazine Edisylate (Compazine) 5 mg PACU PRN PRN IV NAUSEA; Start at 18:45; Stop 11/29/16 at 21:00; Status DC Clopidogrel Bisulfate (Plavix) 150 mg 1X ONCE PO Last administered on t 19:22; Start 11/29/16 at 19:30; Stop 11/29/16 at 19:31; Status DC Vancomycin HCl 1 gm STK-MED ONCE .ROUTE ; Start 11/29/16 at 13:00; Stop 11/30/16 at 08:28; Status DC Active Scripts Active Reported Valsartan-Hctz 160-12.5 Mg Tab (Valsartan/Hydrochlorothiazide) 1 Each Tablet 1 Each PO DAILY Fish Oil 1,200 Mg Softgel ([place]-3 Fatty Acids/Fish Oil) 1 Each Capsule 1 Each PO BID Humalog (Insulin Lispro) 100 Unit/1 Ml Insuln.pen 14 Unit SQ TIDAC Lantus (Insulin Glargine,Hum.rec.anlog) 100 Unit/1 Ml Vial 40 Unit SQ HS Sodium Bicarbonate 650 Mg Tablet 1 Tab PO BID Aspirin 325 Mg Tablet 325 Mg PO Warfarin Sodium 5 Mg Tablet 5 Mg PO DAILY Coreg (Carvedilol) 6.25 Mg Tablet 6.25 Mg PO BIDWMEALS Lexapro (Escitalopram Oxalate) 20 Mg Tablet 20 Mg PO DAILY Vitals/I & O Vital Sign - Last 24 Hours 11/29/16 11/29/16 11/29/16 11/29/16 10:53 12:35 18:10 18:10 Temp 98.8 99.3 97.5 98.8 99.3 97.5 Pulse 64 63 56 Resp 18 12 16 B/P 142/87 168/82 151/70 Pulse Ox 95 93 96 O2 Delivery Room Air Room Air Mask Simple Mask O2 Flow Rate 10 10 11/29/16 11/29/16 11/29/16 11/29/16 18:25 18:40 18:55 18:55 Temp 97.2 97.2 Pulse 58 62 60 Resp 20 20 18 B/P 161/74 177/83 184/86 Pulse Ox 98 93 93 95 O2 Delivery Nasal Cannula Nasal Cannula Nasal Cannula Nasal Cannula O2 Flow Rate 2 2 2.0 2 11/29/16 11/29/16 11/29/16 11/29/16 19:02 19:10 19:25 19:45 Pulse 60 62 Resp 18 18 B/P 195/86 188/73 213/97 Pulse Ox 96 96 O2 Delivery Nasal Cannula Nasal Cannula Nasal Cannula Nasal Cannula O2 Flow Rate 2 2 2 2.0 11/29/16 11/29/16 11/29/16 11/29/16 19:50 19:55 20:05 20:20 Temp 96.3 96.9 96.3 96.9 Pulse 64 64 64 60 Resp 22 21 19 20 B/P 193/92 183/78 158/71 Pulse Ox 93 94 96 97 O2 Delivery Nasal Cannula Nasal Cannula Nasal Cannula Nasal Cannula O2 Flow Rate 2.0 2.0 2.0 2.0 11/29/16 11/29/16 11/29/16 11/29/16 20:35 20:50 21:30 22:00 Temp 97.1 97.1 Pulse 58 58 60 66 Resp 19 20 B/P 143/56 125/80 136/62 168/77 Pulse Ox 96 94 95 97 O2 Delivery Nasal Cannula Nasal Cannula Nasal Cannula Nasal Cannula O2 Flow Rate 2.0 2.0 2.0 2.0 11/29/16 11/29/16 11/30/16 11/30/16 23:00 23:49 00:00 00:50 Temp 97.7 97.7 Pulse 62 72 Resp 21 B/P 167/67 153/107 Pulse Ox 96 93 93 O2 Delivery Nasal Cannula Room Air Room Air O2 Flow Rate 2.0 11/30/16 11/30/16 11/30/16 11/30/16 01:00 07:30 08:11 08:31 Temp 97.6 97.6 Pulse 66 66 66 Resp 14 B/P 122/58 100/47 100/47 Pulse Ox 92 94 O2 Delivery Room Air Room Air Nasal Cannula O2 Flow Rate 2 11/30/16 08:33 Pulse 66 B/P 173/77 Intake and Output 11/29/16 11/29/16 11/30/16 15:00 23:00 07:00 Intake Total 720 ml 1017 ml Output Total 1255 ml 370 ml Balance -535 ml 647 ml JESS VILLAFANA MD Nov 30, 2016 10:14
[2016-11-30] MEDS ORDERED: FENTANYL PF 100 MCG/2 ML VIAL. ONE (11:14)
[2016-11-30] MEDS ORDERED: PROPOFOL 20 ML IV ONE (11:14)
[2016-11-30] MEDS ORDERED: LIDOCAINE 2% 100 MG/5 ML DISP.SYRIN. ONE (11:14)
[2016-11-30] MEDS ORDERED: PROPOFOL 50 ML IV ONE ×2 (12:19→13:07)
[2016-11-30] MEDS ORDERED: LIDOCAINE 1% 20 ML VIAL. IJ ONE (12:27)
[2016-11-30] MEDS ORDERED: BUPIVACAINE 0.5% 50 ML VIAL. IJ ONE (12:27)
[2016-11-30] MEDS ORDERED: EPHEDRINE PF IN SALINE 50 MG/5 ML DISP.SYRIN. IV ONE (12:47)
--- NOTE | 2016-11-30 13:44 | PDOC4 ---
PROCEDURE Procedure Surgeon: Rajani Fiscal Officer: Mckay Preoperative diagnosis: osteomyelitis right foot Post operative diagnosis: same Procedure: Transmetatarsal amputation right foot Anesthesia: MAC with local Hemostasis: none used as patient with recent revascularization right lower extremity post op day 1 EBL: 100mL Materials: 2-0vicryl, 3-0 nylon Intraoperative findings: note fibrosis at distal end of 5th metatarsal remnant, 3rd Metatarsal brown/harrington diseased to neck of metatarsal. No proximal sinus tract noted Pathology: metatarsals 1-5 right foot drain: syed drain---will remove before discharge Patient tolerated anesthesia and procedure well CINDA MORENO DPM Nov 30, 2016 13:43
--- NOTE | 2016-11-30 14:46 | RAD ---
Indication postop. AP oblique and lateral views of the right foot were obtained. Note is made to the previous examination 4 days earlier. The patient is now status post amputation involving the mid portions of the all the metatarsals. A definite unexpected finding is not seen
[2016-11-30] MEDS: MICAFUNGIN 100 MG in IV DEXTROSE 5% 100 ML IV SCH (15:02)
--- NOTE | 2016-11-30 15:50 | PDOC ---
CARDIO Progress Notes Date and Time Date of Service 11/30/2016 Time of Evaluation 1530 Subjective Subjective: No Chest Pain, No shortness of breath, No Palpitations, No Dizziness Vitals Vitals Vital Signs Date Time Temp Pulse Resp B/P Pulse Ox O2 Delivery O2 Flow Rate FiO2 11/30/16 15:13 60 14 150/72 Room Air 11/30/16 14:55 98.1 97.0 98.1 11/30/16 14:21 93 Weight Weight [ ] Input and Output Intake and Output Intake and Output 11/30/16 07:00 Intake Total 1737 ml Output Total 1625 ml Balance 112 ml Intake Oral 730 ml IV Total 1007 ml Output Urine Total 1325 ml Estimated Blood Loss 300 ml # Voids 1 # Bowel Movements 1 Laboratory Labs Laboratory Tests Test 11/29/16 18:19 11/29/16 21:21 11/30/16 06:00 11/30/16 08:11 Glucose (Fingerstick) 219mg/dL (70-99) 220mg/dL (70-99) 268mg/dL (70-99) White Blood Count 8.1x10^3/uL (4.0-11.0) Red Blood Count 3.03x10^6/uL (4.30-5.70) Hemoglobin 9.3g/dL (13.0-17.5) Hematocrit 26.4% (39.0-53.0) Mean Corpuscular Volume 87fL (79-100) Mean Corpuscular Hemoglobin 31pg (25-35) Mean Corpuscular Hemoglobin Concent 35g/dL (31-37) Red Cell Distribution Width 14.7% (11.5-14.5) Platelet Count 274x10^3/uL (140-400) Neutrophils (%) (Auto) 78% (31-73) Lymphocytes (%) (Auto) 13% (24-48) Monocytes (%) (Auto) 9% (0-9) Eosinophils (%) (Auto) 0% (0-3) Basophils (%) (Auto) 0% (0-3) Neutrophils # (Auto) 6.4x10^3uL (1.8-7.7) Lymphocytes # (Auto) 1.0x10^3/uL (1.0-4.8) Monocytes # (Auto) 0.7x10^3/uL (0.0-1.1) Eosinophils # (Auto) 0.0x10^3/uL (0.0-0.7) Basophils # (Auto) 0.0x10^3/uL (0.0-0.2) Prothrombin Time 20.1SEC (11.7-14.0) Prothromb Time International Ratio 1.8 (0.8-1.1) Sodium Level 136mmol/L (136-145) Potassium Level 4.5mmol/L (3.5-5.1) Chloride Level 102mmol/L (98-107) Carbon Dioxide Level 25mmol/L (21-32) Anion Gap 9 (6-14) Blood Urea Nitrogen 23mg/dL (8-26) Creatinine 1.7mg/dL (0.7-1.3) Estimated GFR (Cockcroft-Gault) 39.2 BUN/Creatinine Ratio 14 (6-20) Glucose Level 337mg/dL (70-99) Calcium Level 7.9mg/dL (8.5-10.1) Total Bilirubin 0.4mg/dL (0.2-1.0) Aspartate Amino Transf (AST/SGOT) 14U/L (15-37) Alanine Aminotransferase (ALT/SGPT) 11U/L (16-63) Alkaline Phosphatase 66U/L (46-116) Total Protein 6.1g/dL (6.4-8.2) Albumin 2.1g/dL (3.4-5.0) Albumin/Globulin Ratio 0.5 (1.0-1.7) Test 11/30/16 13:44 Glucose (Fingerstick) 158mg/dL (70-99) Physical Exam HEENT: Neck Supple W Full Motion Chest: Symmetric LUNGS: Clear to Auscultation Heart: S1S2, RRR Abdomen: Soft N/T Extremities: No Calf Tenderness Neurology: alert, oriented, follow commands Assessment Assessment 1. Severe PAD with noted osteomyelitis of right foot with gangrene to right third toe 2. S/P R POP-TIB bypass POD#1, S/P Transmetatarsal amputation right foot today, tolerated procedure well 2. CAD: CABG x6 in 2005. No anginal symptoms. stable. 3. Hx of right leg DVT: 2 episodes in remote past. Claims he has IVC filter. 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 4. HTN/HLP 5. DM2 6. Hx of MRSA Recommendation 1. Continue regimen per vascular and podiatry and ID. 2. Continue with secondary prevention and supportive care 3. Maintain tight BG control. BP slightly elevated, restart antiHTN and adjust per response ASHA TANNER APRN Nov 30, 2016 15:50
[2016-11-30] MEDS: HYDROCODONE/APAP 5/325MG TABLET. PO PRN ×2 (18:10→22:46)
[2016-11-30] MEDS: INSULIN DETEMIR 300 UNITS/3 ML INSULN.PEN. SQ SCH (21:38)
[2016-12-01] MEDS: MEROPENEM 500 MG in IV NORMAL SALINE 50ML 50 ML IV SCH ×5 (00:36→22:56)
[2016-12-01 03:00] VITALS: BP 154/70
[2016-12-01] MEDS ORDERED: VANCOMYCIN 1GM IVPB FOR OMNI 250 ML IV PRN (06:00)
[2016-12-01 07:00] VITALS: BP 199/86
[2016-12-01] MEDS: INSULIN ASPART 300 UNITS/3 ML INSULN.PEN SQ SCH ×6 (08:00→17:00)
[2016-12-01] MEDS: LOSARTAN POTASSIUM 50 MG TABLET. PO SCH (08:03)
[2016-12-01] MEDS: CARVEDILOL 12.5 MG TABLET PO SCH ×2 (08:03→18:12)
[2016-12-01] MEDS: HYDROCHLOROTHIAZIDE 12.5 MG CAPSULE. PO SCH (08:03)
[2016-12-01] MEDS: HYDROCODONE/APAP 5/325MG TABLET. PO PRN (08:03)
[2016-12-01] MEDS: ESCITALOPRAM 10 MG TABLET. PO SCH (08:05)
[2016-12-01] MEDS: OMEGA-3 FATTY ACIDS/FISH OIL 1,000 MG CAPSULE. PO SCH (08:05)
[2016-12-01] MEDS: LACTOBACILLUS ACIDOPH & BULGAR 1 TABLET. PO SCH ×3 (08:05→18:12)
[2016-12-01] MEDS: SODIUM BICARBONATE 650 MG TABLET. PO SCH ×2 (08:05→20:21)
[2016-12-01] MEDS: ASPIRIN 325 MG TABLET PO SCH (08:06)
--- NOTE | 2016-12-01 08:09 | PDOC ---
Infectious Disease Note Subjective Subjective Doing ok Post -op. no loose stool Min pain ROS ROS GEN: Denies fevers, chills, sweats HEENT: Denies blurred vision, sore throat CV: Denies chest pain RESP: Denies shortness of air, cough GI: Denies n/v/d NEURO: Denies confusion, dizziness MSK: Denies weakness, joint pain/swelling Vital Sign Vital Signs Vital Signs Date Time Temp Pulse Resp B/P Pulse Ox O2 Delivery O2 Flow Rate FiO2 12/01/16 08:03 72 199/86 12/01/16 08:03 18 Room Air 12/01/16 03:00 97.8 93 97.8 11/30/16 14:55 97.0 Physical Exam PHYSICAL EXAM GENERAL: NAD, Alert HEENT: PERRL, OC/OP -clear NECK: Supple, no JVD, no LN LUNGS: Clear HEART: S1S2, no gallop, no murmur ABD: Soft, NT, no organomegaly, no rebound EXT: No edema, no cyanosis. RLE bandaged and TMA dressed - dry and clean BOOKING CLERK: Alert, oriented x 3, no focal neurologic deficit SKIN: No rash IV: ok Labs Lab Laboratory Tests Test 11/30/16 08:11 11/30/16 13:44 11/30/16 17:24 11/30/16 21:23 Glucose (Fingerstick) 268mg/dL (70-99) 158mg/dL (70-99) 229mg/dL (70-99) 119mg/dL (70-99) Micro IMPRESSION MRI 11/24 1. Findings are compatible with osteomyelitis involving the proximal phalanx of the 3rd toe, and possibly also at the 3rd metatarsal head. Marrow edema within the middle 3rd phalanx may just be reactive. 2. There is generalized soft tissue edema and muscle edema without drainable fluid collection or abscess. 3. Mild marrow edema and low T1 signal at the distal remnant of the 5th metatarsal could be related to the recent surgery, but mild osteomyelitis is not excludable here, particularly if there is an overlying ulceration. 4. Mild 3rd flexor tenosynovitis. Objective Assessment Wet Gangrene imporved to dry- right 3 rd toe Staph aureus 11/23. S?p TMA 11/30 PAD - s/p by bypass 11/29. right popiteal to posterior tibial artery bypass with spliced great and small saphenous veins PCN allergy H/o strep Loose stool - some better today Plan Plan of Care Cont Meropenem/Micafungin. likely wean to po or d/c abx 12/02 Cont probiotics F/u labs in am and cults D/w family DEVYN MOSQUEDA MD Dec 01, 2016 08:09
[2016-12-01 11:00] VITALS: BP 132/62
--- NOTE | 2016-12-01 11:41 | PDOC ---
PROGRESS NOTES Chief Complaint Chief Complaint 1. 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 dm2 on insulin 4. H/O CAD post CAG 5. HTN 6. HLD 7. peripheral artery disease 8 anemia of CKD 9. CKD4 10. H/O DVT OF right leg on Coumadin Plan continue broad spectrum abx per id monitor renal functions blood Sugar control follow id and vascular recommendation pain control PT/OT Labs reviwed. History of Present Illness History of Present Illness No fever no chills Vitals Vitals Vital Signs Date Time Temp Pulse Resp B/P Pulse Ox O2 Delivery O2 Flow Rate FiO2 12/01/16 11:00 97.6 62 22 132/62 91 Room Air 97.6 11/30/16 14:55 97.0 Physical Exam General: Alert, Oriented X3, No acute distress Heart: Regular rate, Normal S1, Normal S2, No murmurs Lungs: Clear, Other Abdomen: Normal bowel sounds, Soft, No tenderness, No masses Extremities: Other Skin: Other Labs LABS Laboratory Tests Test 11/30/16 13:44 11/30/16 17:24 11/30/16 21:23 12/01/16 07:53 Glucose (Fingerstick) 158mg/dL (70-99) 229mg/dL (70-99) 119mg/dL (70-99) 57mg/dL (70-99) Test 12/01/16 08:22 12/01/16 10:41 Glucose (Fingerstick) 125mg/dL (70-99) 192mg/dL (70-99) Assessment and Plan Assessmemt and Plan Problems Medical Problems: (1) Cellulitis of right toe Status: Acute (2) Osteomyelitis Status: Acute (3) Peripheral vascular disease Status: Acute Problems: Comment Review of Relevant I have reviewed the following items gage (where applicable) has been applied. Labs Laboratory Tests Test 11/29/16 18:19 11/29/16 21:21 11/30/16 06:00 11/30/16 08:11 Glucose (Fingerstick) 219mg/dL (70-99) 220mg/dL (70-99) 268mg/dL (70-99) White Blood Count 8.1x10^3/uL (4.0-11.0) Red Blood Count 3.03x10^6/uL (4.30-5.70) Hemoglobin 9.3g/dL (13.0-17.5) Hematocrit 26.4% (39.0-53.0) Mean Corpuscular Volume 87fL (79-100) Mean Corpuscular Hemoglobin 31pg (25-35) Mean Corpuscular Hemoglobin Concent 35g/dL (31-37) Red Cell Distribution Width 14.7% (11.5-14.5) Platelet Count 274x10^3/uL (140-400) Neutrophils (%) (Auto) 78% (31-73) Lymphocytes (%) (Auto) 13% (24-48) Monocytes (%) (Auto) 9% (0-9) Eosinophils (%) (Auto) 0% (0-3) Basophils (%) (Auto) 0% (0-3) Neutrophils # (Auto) 6.4x10^3uL (1.8-7.7) Lymphocytes # (Auto) 1.0x10^3/uL (1.0-4.8) Monocytes # (Auto) 0.7x10^3/uL (0.0-1.1) Eosinophils # (Auto) 0.0x10^3/uL (0.0-0.7) Basophils # (Auto) 0.0x10^3/uL (0.0-0.2) Prothrombin Time 20.1SEC (11.7-14.0) Prothromb Time International Ratio 1.8 (0.8-1.1) Sodium Level 136mmol/L (136-145) Potassium Level 4.5mmol/L (3.5-5.1) Chloride Level 102mmol/L (98-107) Carbon Dioxide Level 25mmol/L (21-32) Anion Gap 9 (6-14) Blood Urea Nitrogen 23mg/dL (8-26) Creatinine 1.7mg/dL (0.7-1.3) Estimated GFR (Cockcroft-Gault) 39.2 BUN/Creatinine Ratio 14 (6-20) Glucose Level 337mg/dL (70-99) Calcium Level 7.9mg/dL (8.5-10.1) Total Bilirubin 0.4mg/dL (0.2-1.0) Aspartate Amino Transf (AST/SGOT) 14U/L (15-37) Alanine Aminotransferase (ALT/SGPT) 11U/L (16-63) Alkaline Phosphatase 66U/L (46-116) Total Protein 6.1g/dL (6.4-8.2) Albumin 2.1g/dL (3.4-5.0) Albumin/Globulin Ratio 0.5 (1.0-1.7) Test 11/30/16 13:44 11/30/16 17:24 11/30/16 21:23 12/01/16 07:53 Glucose (Fingerstick) 158mg/dL (70-99) 229mg/dL (70-99) 119mg/dL (70-99) 57mg/dL (70-99) Test 12/01/16 08:22 12/01/16 10:41 Glucose (Fingerstick) 125mg/dL (70-99) 192mg/dL (70-99) Laboratory Tests Test 11/30/16 13:44 11/30/16 17:24 11/30/16 21:23 12/01/16 07:53 Glucose (Fingerstick) 158mg/dL (70-99) 229mg/dL (70-99) 119mg/dL (70-99) 57mg/dL (70-99) Test 12/01/16 08:22 12/01/16 10:41 Glucose (Fingerstick) 125mg/dL (70-99) 192mg/dL (70-99) Medications Current Medications Vancomycin HCl 1 each 1 each PRN DAILY PRN MC SEE COMMENTS; Start 11/26/16 at 12 :45; Stop 11/26/16 at 13:30; Status DC Sodium Chloride 500 ml @ 500 mls/hr 1X ONCE IV Last administered on 11/26/16 14:52; Start 11/26/16 at 12:45; Stop 11/26/16 at 13:44; Status DC Vancomycin HCl/ Sodium Chloride (Iv Sodium Chloride 0.9% 500ml Bag) 500 ml @ 250 mls/hr 1X ONCE IV Last administered on 11/26/16 13:09; Start 11/26/16 at 13 :00; Stop 11/26/16 at 14:59; Status DC Ondansetron HCl (Zofran) 4 mg PRN Q8HRS PRN IV NAUSEA/VOMITING; Start 11/26/16 at 12:45; Stop 11/26/16 at 15:59; Status DC Morphine Sulfate 2 mg 2 mg PRN Q2HR PRN IV PAIN; Start 11/26/16 at 12:45; Stop 11/27/16 at 12:44; Status DC Sodium Chloride 1,000 ml @ 125 mls/hr Q8H IV Last administered on 11/27/16 05: 57; Start 11/26/16 at 12:43; Stop 11/27/16 at 12:42; Status DC Meropenem 500 mg/ Sodium Chloride 50 ml @ 100 mls/hr Q6HRS IV Last administered on 12/01/16 05:36; Start 11/26/16 at 14:00 Micafungin Sodium 100 mg/Dextrose 100 ml @ 100 mls/hr Q24H IV Last administered on 11/30/16 15:02; Start 11/26/16 at 14:00 Linezolid (Zyvox Premix) 300 ml @ 300 mls/hr Q12HR IV Last administered on 11/28 08:38; Start 11/26/16 at 14:00; Stop 11/28/16 at 12:00; Status DC Acetaminophen (Tylenol) 650 mg PRN Q6HRS PRN PO MILD PAIN / TEMP; Start at 15:45 Ondansetron HCl (Zofran) 4 mg PRN Q6HRS PRN IV NAUSEA/VOMITING; Start 11/26/16 at 15:45 Acetaminophen/ Hydrocodone Bitart (Lortab 5/325) 1 tab PRN Q4HRS PRN PO PAIN Last administered on 12/01/16 08:03; Start 11/26/16 at 15:45 Insulin Aspart (Novolog) 0-9 UNITS TIDWMEALS SQ Last administered on 11/30/16 18:14; Start 11/26/16 at 17:00 Dextrose 12.5 gm PRN Q15MIN PRN IV SEE COMMENTS; Start 11/26/16 at 15:45 Aspirin ([place] Aspirin) 325 mg DAILY PO Last administered on 12/01/16 08:06; Start 11/27/16 at 09:00 Carvedilol (Coreg) 6.25 mg BIDWMEALS PO Last administered on 11/28/16 08:40; Start 11/26/16 at 17:00; Stop 11/28/16 at 15:41; Status DC Sodium Bicarbonate (Sodium Bicarbonate) 650 mg BID PO Last administered on 12/01 08:05; Start 11/26/16 at 21:00 Escitalopram Oxalate (Lexapro) 20 mg DAILY PO Last administered on 12/01/16 08 :05; Start 11/27/16 at 09:00 Non-Formulary Medication 40 unit HS SQ ; Start 11/26/16 at 21:00; Stop 11/26/16 at 21:00; Status DC Non-Formulary Medication 14 unit TIDAC SQ ; Start 11/26/16 at 16:30; Stop at 16:30; Status DC Fish Oil (Fish Oil) 1,000 mg DAILY PO Last administered on 12/01/16 08:05; Start 11/27/16 at 09:00 Hydrochlorothiazide (Microzide) 12.5 mg DAILY PO Last administered on 08:03; Start 11/27/16 at 09:00 Insulin Detemir (Levemir) 40 units QHS SQ Last administered on 11/30/16 21:38; Start 11/26/16 at 21:00 Insulin Aspart (Novolog) 10 units TIDWMEALS SQ Last administered on 11/28/16 12 :43; Start 11/26/16 at 17:00 Losartan Potassium (Cozaar) 100 mg DAILY PO Last administered on 12/01/16 08: 03; Start 11/27/16 at 09:00 Acetylcysteine (Mucomyst 20% Oral Solution) 600 mg BID PO Last administered on 11/28/16 22:07; Start 11/27/16 at 12:45; Stop 11/28/16 at 22:00; Status DC Ondansetron HCl (Zofran) 4 mg PRN Q6HRS PRN IV Nausea; Start 11/28/16 at 07:00; Stop 11/28/16 at 23:00; Status DC Fentanyl Citrate (Fentanyl 2ml Vial) 25 mcg PRN Q5MIN PRN IV MILD PAIN; Start 11/28/16 at 07:00; Stop 11/28/16 at 23:00; Status DC Fentanyl Citrate (Fentanyl 2ml Vial) 50 mcg PRN Q5MIN PRN IV MODERATE PAIN; Start 11/28/16 at 07:00; Stop 11/28/16 at 23:00; Status DC Morphine Sulfate 1 mg 1 mg PRN Q10MIN PRN IV SEVERE PAIN; Start 11/28/16 at 07: 00; Stop 11/28/16 at 23:00; Status DC Lactated Ringer's (Iv Lactated Ringers) 1,000 ml @ 0 mls/hr Q0M IV ; Start 11/28 at 07:00; Stop 11/28/16 at 18:59; Status DC Lidocaine HCl 2 ml 1X PRN PRN ID IV START; Start 11/28/16 at 07:00; Stop at 06:59; Status DC Hydromorphone HCl (Dilaudid) 0.5 mg PRN Q10MIN PRN IV SEVERE PAIN, Second choice; Start 11/28/16 at 07:00; Stop 11/28/16 at 23:00; Status DC Prochlorperazine Edisylate (Compazine) 5 mg PACU PRN PRN IV NAUSEA; Start at 07:00; Stop 11/28/16 at 23:00; Status DC Fentanyl Citrate (Fentanyl 2ml Vial) 25 mcg PRN Q5MIN PRN IV MILD PAIN; Start 11/29/16 at 07:00; Stop 11/29/16 at 18:00; Status DC Fentanyl Citrate (Fentanyl 2ml Vial) 50 mcg PRN Q5MIN PRN IV MODERATE PAIN; Start 11/29/16 at 07:00; Stop 11/29/16 at 18:00; Status DC Morphine Sulfate 1 mg 1 mg PRN Q10MIN PRN IV SEVERE PAIN; Start 11/29/16 at 07: 00; Stop 11/29/16 at 18:00; Status DC Lactated Ringer's (Iv Lactated Ringers) 1,000 ml @ 30 mls/hr Q24H IV Last administered on 11/29/16t 12:30; Start 11/29/16 at 07:00; Stop 11/29/16 at 18:59; Status DC Lidocaine HCl 2 ml 1X PRN PRN ID IV START; Start 11/29/16 at 07:00; Stop at 18:00; Status DC Hydromorphone HCl (Dilaudid) 0.5 mg PRN Q10MIN PRN IV SEVERE PAIN, Second choice; Start 11/29/16 at 07:00; Stop 11/29/16 at 18:00; Status DC Prochlorperazine Edisylate (Compazine) 5 mg PACU PRN PRN IV NAUSEA; Start at 07:00; Stop 11/29/16 at 18:00; Status DC Carvedilol 12.5 mg 12.5 mg BIDWMEALS PO Last administered on 12/01/16 08:03; Start 11/28/16 at 17:00 Cefazolin Sodium/ Dextrose (Ancef 2gm Premix) 50 ml @ 100 mls/hr 1X ONCE IV ; Start 11/29/16 at 06:00; Stop 11/29/16 at 06:29; Status DC Zolpidem Tartrate (Ambien) 5 mg 1X ONCE PO Last administered on 11/28/16 22:07 ; Start 11/28/16 at 22:00; Stop 11/28/16 at 22:01; Status DC Phytonadione (Vitamin K ) 1 mg 1X ONCE SQ Last administered on 23:43; Start 11/29/16 at 00:00; Stop 11/29/16 at 00:01; Status DC Hydralazine HCl (Apresoline) 10 mg PRN Q4HRS PRN IVP ELEVATED BP, SEE COMMENTS ; Start 11/29/16 at 08:30 Lactobacillus Acidophilus (Bacid, Svitlana-Bid) 1 tab TIDWMEALS PO Last administered on 12/01/16 08:05; Start 11/29/16 at 12:00 Furosemide 40 mg 40 mg 1X ONCE IVP ; Start 11/29/16 at 12:45; Stop 11/29/16 at 12 :45; Status DC Heparin Sodium (Porcine)/Sodium Chloride (Iv Sodium Chloride 0.9% 500ml Bag) 505 ml @ 505 mls/hr 1X PERIOP ONCE IRR Last administered on 11/29/16 13:48; Start 11/29/16 at 15:00; Stop 11/29/16 at 15:59; Status DC Fentanyl Citrate (Fentanyl 2ml Vial) 25 mcg PRN Q5MIN PRN IV MILD PAIN; Start 11/30/16 at 07:00; Stop 12/01/16 at 06:59; Status DC Fentanyl Citrate (Fentanyl 2ml Vial) 50 mcg PRN Q5MIN PRN IV MODERATE PAIN; Start 11/30/16 at 07:00; Stop 12/01/16 at 06:59; Status DC Morphine Sulfate 1 mg 1 mg PRN Q10MIN PRN IV SEVERE PAIN; Start 11/30/16 at 07: 00; Stop 12/01/16 at 06:59; Status DC Lactated Ringer's (Iv Lactated Ringers) 1,000 ml @ 0 mls/hr Q0M IV Last administered on 11/30/16 11:17; Start 11/30/16 at 07:00; Stop 11/30/16 at 18:59; Status DC Lidocaine HCl 2 ml 1X PRN PRN ID IV START; Start 11/30/16 at 07:00; Stop at 06:59; Status DC Hydromorphone HCl (Dilaudid) 0.5 mg PRN Q10MIN PRN IV SEVERE PAIN, Second choice; Start 11/30/16 at 07:00; Stop 12/01/16 at 06:59; Status DC Prochlorperazine Edisylate (Compazine) 5 mg PACU PRN PRN IV NAUSEA; Start at 07:00; Stop 12/01/16 at 06:59; Status DC Fentanyl Citrate (Fentanyl 2ml Vial) 25 mcg PRN Q5MIN PRN IV MILD PAIN; Start 11/29/16 at 18:45 Fentanyl Citrate (Fentanyl 2ml Vial) 50 mcg PRN Q5MIN PRN IV MODERATE PAIN Last administered on 11/29/16t 18:55; Start 11/29/16 at 18:45; Stop 11/29/16 at 21: 00; Status DC Hydromorphone HCl (Dilaudid) 0.5 mg PRN Q10MIN PRN IV SEVERE PAIN, Second choice; Start 11/29/16 at 18:45; Stop 11/29/16 at 21:00; Status DC Morphine Sulfate 1 mg PRN Q10MIN PRN IV SEVERE PAIN; Start 11/29/16 at 18:45; Stop 11/29/16 at 21:00; Status DC Ondansetron HCl (Zofran) 4 mg PRN Q6HRS PRN IV Nausea; Start 11/29/16 at 18:45; Stop 11/29/16 at 21:00; Status DC Prochlorperazine Edisylate (Compazine) 5 mg PACU PRN PRN IV NAUSEA; Start at 18:45; Stop 11/29/16 at 21:00; Status DC Clopidogrel Bisulfate (Plavix) 150 mg 1X ONCE PO Last administered on 19:22; Start 11/29/16 at 19:30; Stop 11/29/16 at 19:31; Status DC Vancomycin HCl 1 gm 1 gm STK-MED ONCE .ROUTE ; Start 11/29/16 at 13:00; Stop 11/30 at 08:28; Status DC Propofol (Diprivan) 20 ml @ As Directed STK-MED ONCE IV ; Start 11/30/16 at 11:14 ; Stop 11/30/16 at 11:15; Status DC Lidocaine HCl 100 mg STK-MED ONCE .ROUTE ; Start 11/30/16 at 11:14; Stop 11/30/16 at 11:15; Status DC Fentanyl Citrate 100 mcg 100 mcg STK-MED ONCE .ROUTE ; Start 11/30/16 at 11:14; Stop 11/30/16 at 11:15; Status DC Vancomycin HCl 250 ml @ 250 mls/hr 1X PREOP PRN IV Pre Op Last administered on 11/30/16 12:14; Start 12/01/16 at 06:00; Stop 12/01/16 at 18:00 Propofol (Diprivan) 50 ml @ As Directed STK-MED ONCE IV ; Start 11/30/16 at 12:19 ; Stop 11/30/16 at 12:20; Status DC Bupivacaine HCl (Marcaine 0.5%) 50 ml STK-MED ONCE IJ Last administered on 12:27; Start 11/30/16 at 12:27; Stop 11/30/16 at 12:54; Status DC Ephedrine Sulfate 50 mg STK-MED ONCE IV ; Start 11/30/16 at 12:47; Stop 11/30/16 at 12:48; Status DC Lidocaine HCl 20 ml 20 ml STK-MED ONCE IJ Last administered on 11/30/16t 12:27; Start 11/30/16 at 12:27; Stop 11/30/16 at 12:54; Status DC Propofol (Diprivan) 50 ml @ As Directed STK-MED ONCE IV ; Start 11/30/16 at 13:07 ; Stop 11/30/16 at 13:08; Status DC Diphenhydramine HCl (Benadryl) 50 mg PRN Q6HRS PRN PO ITCHING; Start 11/30/16 at 22:45 Active Scripts Active Reported Valsartan-Hctz 160-12.5 Mg Tab (Valsartan/Hydrochlorothiazide) 1 Each Tablet 1 Each PO DAILY Fish Oil 1,200 Mg Softgel ([place]-3 Fatty Acids/Fish Oil) 1 Each Capsule 1 Each PO BID Humalog (Insulin Lispro) 100 Unit/1 Ml Insuln.pen 14 Unit SQ TIDAC Lantus (Insulin Glargine,Hum.rec.anlog) 100 Unit/1 Ml Vial 40 Unit SQ HS Sodium Bicarbonate 650 Mg Tablet 1 Tab PO BID Aspirin 325 Mg Tablet 325 Mg PO Warfarin Sodium 5 Mg Tablet 5 Mg PO DAILY Coreg (Carvedilol) 6.25 Mg Tablet 6.25 Mg PO BIDWMEALS Lexapro (Escitalopram Oxalate) 20 Mg Tablet 20 Mg PO DAILY Vitals/I & O Vital Sign - Last 24 Hours 11/30/16 11/30/16 11/30/16 11/30/16 13:36 13:36 13:51 14:00 Temp 98.2 98.2 Pulse 61 60 Resp 22 60 B/P 141/62 153/66 Pulse Ox 100 100 O2 Delivery Mask Simple Mask Simple Mask Room Air O2 Flow Rate 10 10 10 11/30/16 11/30/16 11/30/16 11/30/16 14:06 14:21 14:55 15:13 Temp 97.0 98.1 97.0 98.1 Pulse 62 58 60 60 Resp 21 22 14 14 B/P 147/63 151/71 168/68 150/72 Pulse Ox 94 93 O2 Delivery Room Air Room Air Room Air Room Air O2 Flow Rate 97.0 11/30/16 11/30/16 11/30/16 11/30/16 15:30 15:30 15:45 15:45 Pulse 68 68 66 66 Resp 14 16 16 16 B/P 139/65 139/65 155/63 155/63 Pulse Ox 99 99 97 97 O2 Delivery Room Air Room Air Room Air Room Air 11/30/16 11/30/16 11/30/16 11/30/16 16:00 18:10 18:10 19:00 Temp 97.9 97.9 Pulse 66 62 60 Resp 16 12 20 B/P 114/59 144/66 134/63 Pulse Ox 97 O2 Delivery Room Air Room Air 11/30/16 11/30/16 12/01/16 12/01/16 20:00 23:11 03:00 07:00 Temp 97.7 97.8 98.2 97.7 97.8 98.2 Pulse 64 60 67 Resp 20 20 22 B/P 122/58 154/70 199/86 Pulse Ox 94 93 92 O2 Delivery Room Air Room Air Room Air Room Air 12/01/16 12/01/16 12/01/16 12/01/16 08:00 08:03 08:03 08:03 Pulse 72 72 Resp 18 B/P 199/86 199/86 O2 Delivery Room Air Room Air 12/01/16 12/01/16 09:03 11:00 Temp 97.6 97.6 Pulse 62 Resp 18 22 B/P 132/62 Pulse Ox 91 O2 Delivery Room Air Room Air Intake and Output 11/30/16 11/30/16 12/01/16 15:00 23:00 07:00 Intake Total 1150 ml 450 ml Output Total 200 ml 200 ml Balance 950 ml 250 ml JESS VILLAFANA MD Dec 01, 2016 11:41
[2016-12-01] MEDS ORDERED: IV NORMAL SALINE 1000ML BAG 1,000 ML IV SCH (12:30)
[2016-12-01 12:42] LABS: CALCIUM 8.2 mg/dL (8.5-10.1); CREATININE 1.4 mg/dL (0.7-1.3); POTASSIUM 3.8 mmol/L (3.5-5.1)
--- NOTE | 2016-12-01 14:39 | PDOC ---
PROGRESS NOTES Subjective Subjective "I think I'm supposed to go home tomorrow." Objective Objective Vascular Surgery - POD#2 Right popliteal to posterior tib bypass with spliced GSV and LSV General: Talkative and in good spirits. at bedside. Seems to think he will be going home tomorrow. CV: NSR. Vital signs stable Pulm: Anteriorly clear. Unlabored at rest. Does become winded with minimal activity. Abd: + bowel sounds. Having loose stools (per pt report) Incisions: Right upper thigh, medial calf, posterior calf and medial ankle - all intact. Bloody weeping from thigh incision. Others dry. Right foot TMA: Incision intact. Foot remains swollen. Pulses: Palpable, strong graft pulse and right post-tibial pulse. Doppled flow into right dorsalis pedis. Assessment/Plan: 1. PAD - POD#2 Right popliteal to ant tib bypass with patent bypass graft. 2. Osteomyelitis right foot with non-healing amp sites to toes 4-5. POD#1 Right TMA by Podiatry 3. Needs to keep right leg elevated more to reduce swelling. Instructed patient and . 4. IV antibiotic plan per ID. Patient thinks he's going home tomorrow??? Most likely will not be ready for discharge tomorrow. 5. Ok to begin to anticoagulate patient from a Vascular Surgery perspective. Will need to check with Podiatry as well for the TMA. 6. Progress activity with heel touch only to right foot if OK with Podiatry. PT/OT already consulted. Costume Cutter come in with surgical boot and this apparatus will not work with multiple surgical incisions to calf. Costume Cutter to evaluate for half-shoe and check with Podiatry. 7. Continue antiplatelet therapy on ASA and Plavix for now. Once anticoagulation resumed and nearing therapeurtic INR, may stop Plavix. 8. Dyspnea and history of. Will check BNP due to patient's cardiac history and surgeries. 9. Hypokalemia - replace Vital Signs Date Time Temp Pulse Resp B/P Pulse Ox O2 Delivery O2 Flow Rate FiO2 12/01/16 11:00 97.6 62 22 132/62 91 Room Air 97.6 11/30/16 14:55 97.0 Intake and Output 12/01/16 07:00 Intake Total 1600 ml Output Total 400 ml Balance 1200 ml Intake Oral 200 ml IV Total 1400 ml Output Urine Total 300 ml Estimated Blood Loss 100 ml Assessment Assessment Problems Medical Problems: (1) Cellulitis of right toe Status: Acute (2) Osteomyelitis Status: Acute (3) Peripheral vascular disease Status: Acute Comment Review of Relevant I have reviewed the following items gage (where applicable) has been applied. Labs Laboratory Tests Test 11/29/16 18:19 11/29/16 21:21 11/30/16 06:00 11/30/16 08:11 Glucose (Fingerstick) 219mg/dL (70-99) 220mg/dL (70-99) 268mg/dL (70-99) White Blood Count 8.1x10^3/uL (4.0-11.0) Red Blood Count 3.03x10^6/uL (4.30-5.70) Hemoglobin 9.3g/dL (13.0-17.5) Hematocrit 26.4% (39.0-53.0) Mean Corpuscular Volume 87fL (79-100) Mean Corpuscular Hemoglobin 31pg (25-35) Mean Corpuscular Hemoglobin Concent 35g/dL (31-37) Red Cell Distribution Width 14.7% (11.5-14.5) Platelet Count 274x10^3/uL (140-400) Neutrophils (%) (Auto) 78% (31-73) Lymphocytes (%) (Auto) 13% (24-48) Monocytes (%) (Auto) 9% (0-9) Eosinophils (%) (Auto) 0% (0-3) Basophils (%) (Auto) 0% (0-3) Neutrophils # (Auto) 6.4x10^3uL (1.8-7.7) Lymphocytes # (Auto) 1.0x10^3/uL (1.0-4.8) Monocytes # (Auto) 0.7x10^3/uL (0.0-1.1) Eosinophils # (Auto) 0.0x10^3/uL (0.0-0.7) Basophils # (Auto) 0.0x10^3/uL (0.0-0.2) Prothrombin Time 20.1SEC (11.7-14.0) Prothromb Time International Ratio 1.8 (0.8-1.1) Sodium Level 136mmol/L (136-145) Potassium Level 4.5mmol/L (3.5-5.1) Chloride Level 102mmol/L (98-107) Carbon Dioxide Level 25mmol/L (21-32) Anion Gap 9 (6-14) Blood Urea Nitrogen 23mg/dL (8-26) Creatinine 1.7mg/dL (0.7-1.3) Estimated GFR (Cockcroft-Gault) 39.2 BUN/Creatinine Ratio 14 (6-20) Glucose Level 337mg/dL (70-99) Calcium Level 7.9mg/dL (8.5-10.1) Total Bilirubin 0.4mg/dL (0.2-1.0) Aspartate Amino Transf (AST/SGOT) 14U/L (15-37) Alanine Aminotransferase (ALT/SGPT) 11U/L (16-63) Alkaline Phosphatase 66U/L (46-116) Total Protein 6.1g/dL (6.4-8.2) Albumin 2.1g/dL (3.4-5.0) Albumin/Globulin Ratio 0.5 (1.0-1.7) Test 11/30/16 13:44 11/30/16 17:24 11/30/16 21:23 12/01/16 07:53 Glucose (Fingerstick) 158mg/dL (70-99) 229mg/dL (70-99) 119mg/dL (70-99) 57mg/dL (70-99) Test 12/01/16 08:22 12/01/16 10:41 12/01/16 12:20 Glucose (Fingerstick) 125mg/dL (70-99) 192mg/dL (70-99) Sodium Level 139mmol/L (136-145) Potassium Level 3.8mmol/L (3.5-5.1) Chloride Level 104mmol/L (98-107) Carbon Dioxide Level 29mmol/L (21-32) Anion Gap 6 (6-14) Blood Urea Nitrogen 26mg/dL (8-26) Creatinine 1.4mg/dL (0.7-1.3) Estimated GFR (Cockcroft-Gault) 49.0 Glucose Level 154mg/dL (70-99) Calcium Level 8.2mg/dL (8.5-10.1) Laboratory Tests Test 11/30/16 17:24 11/30/16 21:23 12/01/16 07:53 12/01/16 08:22 Glucose (Fingerstick) 229mg/dL (70-99) 119mg/dL (70-99) 57mg/dL (70-99) 125mg/dL (70-99) Test 12/01/16 10:41 12/01/16 12:20 Glucose (Fingerstick) 192mg/dL (70-99) Sodium Level 139mmol/L (136-145) Potassium Level 3.8mmol/L (3.5-5.1) Chloride Level 104mmol/L (98-107) Carbon Dioxide Level 29mmol/L (21-32) Anion Gap 6 (6-14) Blood Urea Nitrogen 26mg/dL (8-26) Creatinine 1.4mg/dL (0.7-1.3) Estimated GFR (Cockcroft-Gault) 49.0 Glucose Level 154mg/dL (70-99) Calcium Level 8.2mg/dL (8.5-10.1) Medications Current Medications Vancomycin HCl 1 each 1 each PRN DAILY PRN MC SEE COMMENTS; Start 11/26/16 at 12 :45; Stop 11/26/16 at 13:30; Status DC Sodium Chloride 500 ml @ 500 mls/hr 1X ONCE IV Last administered on 11/26/16 14:52; Start 11/26/16 at 12:45; Stop 11/26/16 at 13:44; Status DC Vancomycin HCl/ Sodium Chloride (Iv Sodium Chloride 0.9% 500ml Bag) 500 ml @ 250 mls/hr 1X ONCE IV Last administered on 11/26/16 13:09; Start 11/26/16 at 13 :00; Stop 11/26/16 at 14:59; Status DC Ondansetron HCl (Zofran) 4 mg PRN Q8HRS PRN IV NAUSEA/VOMITING; Start 11/26/16 at 12:45; Stop 11/26/16 at 15:59; Status DC Morphine Sulfate 2 mg 2 mg PRN Q2HR PRN IV PAIN; Start 11/26/16 at 12:45; Stop 11/27/16 at 12:44; Status DC Sodium Chloride 1,000 ml @ 125 mls/hr Q8H IV Last administered on 11/27/16 05: 57; Start 11/26/16 at 12:43; Stop 11/27/16 at 12:42; Status DC Meropenem 500 mg/ Sodium Chloride 50 ml @ 100 mls/hr Q6HRS IV Last administered on 12/01/16 12:24; Start 11/26/16 at 14:00 Micafungin Sodium 100 mg/Dextrose 100 ml @ 100 mls/hr Q24H IV Last administered on 11/30/16 15:02; Start 11/26/16 at 14:00 Linezolid (Zyvox Premix) 300 ml @ 300 mls/hr Q12HR IV Last administered on 11/28 08:38; Start 11/26/16 at 14:00; Stop 11/28/16 at 12:00; Status DC Acetaminophen (Tylenol) 650 mg PRN Q6HRS PRN PO MILD PAIN / TEMP; Start at 15:45 Ondansetron HCl (Zofran) 4 mg PRN Q6HRS PRN IV NAUSEA/VOMITING; Start 11/26/16 at 15:45 Acetaminophen/ Hydrocodone Bitart (Lortab 5/325) 1 tab PRN Q4HRS PRN PO PAIN Last administered on 12/01/16 08:03; Start 11/26/16 at 15:45 Insulin Aspart (Novolog) 0-9 UNITS TIDWMEALS SQ Last administered on 11/30/16 18:14; Start 11/26/16 at 17:00 Dextrose 12.5 gm PRN Q15MIN PRN IV SEE COMMENTS; Start 11/26/16 at 15:45 Aspirin (Harrison Aspirin) 325 mg DAILY PO Last administered on 12/01/16 08:06; Start 11/27/16 at 09:00 Carvedilol (Coreg) 6.25 mg BIDWMEALS PO Last administered on 11/28/16 08:40; Start 11/26/16 at 17:00; Stop 11/28/16 at 15:41; Status DC Sodium Bicarbonate (Sodium Bicarbonate) 650 mg BID PO Last administered on 12/01 08:05; Start 11/26/16 at 21:00 Escitalopram Oxalate (Lexapro) 20 mg DAILY PO Last administered on 12/01/16 08 :05; Start 11/27/16 at 09:00 Non-Formulary Medication 40 unit HS SQ ; Start 11/26/16 at 21:00; Stop 11/26/16 at 21:00; Status DC Non-Formulary Medication 14 unit TIDAC SQ ; Start 11/26/16 at 16:30; Stop at 16:30; Status DC Fish Oil (Fish Oil) 1,000 mg DAILY PO Last administered on 12/01/16 08:05; Start 11/27/16 at 09:00 Hydrochlorothiazide (Microzide) 12.5 mg DAILY PO Last administered on 08:03; Start 11/27/16 at 09:00 Insulin Detemir (Levemir) 40 units QHS SQ Last administered on 11/30/16 21:38; Start 11/26/16 at 21:00 Insulin Aspart (Novolog) 10 units TIDWMEALS SQ Last administered on 12/01/16 13:25; Start 11/26/16 at 17:00 Losartan Potassium (Cozaar) 100 mg DAILY PO Last administered on 12/01/16 08: 03; Start 11/27/16 at 09:00 Acetylcysteine (Mucomyst 20% Oral Solution) 600 mg BID PO Last administered on 11/28/16 22:07; Start 11/27/16 at 12:45; Stop 11/28/16 at 22:00; Status DC Ondansetron HCl (Zofran) 4 mg PRN Q6HRS PRN IV Nausea; Start 11/28/16 at 07:00; Stop 11/28/16 at 23:00; Status DC Fentanyl Citrate (Fentanyl 2ml Vial) 25 mcg PRN Q5MIN PRN IV MILD PAIN; Start 11/28/16 at 07:00; Stop 11/28/16 at 23:00; Status DC Fentanyl Citrate (Fentanyl 2ml Vial) 50 mcg PRN Q5MIN PRN IV MODERATE PAIN; Start 11/28/16 at 07:00; Stop 11/28/16 at 23:00; Status DC Morphine Sulfate 1 mg 1 mg PRN Q10MIN PRN IV SEVERE PAIN; Start 11/28/16 at 07: 00; Stop 11/28/16 at 23:00; Status DC Lactated Ringer's (Iv Lactated Ringers) 1,000 ml @ 0 mls/hr Q0M IV ; Start 11/28 at 07:00; Stop 11/28/16 at 18:59; Status DC Lidocaine HCl 2 ml 1X PRN PRN ID IV START; Start 11/28/16 at 07:00; Stop at 06:59; Status DC Hydromorphone HCl (Dilaudid) 0.5 mg PRN Q10MIN PRN IV SEVERE PAIN, Second choice; Start 11/28/16 at 07:00; Stop 11/28/16 at 23:00; Status DC Prochlorperazine Edisylate (Compazine) 5 mg PACU PRN PRN IV NAUSEA; Start at 07:00; Stop 11/28/16 at 23:00; Status DC Fentanyl Citrate (Fentanyl 2ml Vial) 25 mcg PRN Q5MIN PRN IV MILD PAIN; Start 11/29/16 at 07:00; Stop 11/29/16 at 18:00; Status DC Fentanyl Citrate (Fentanyl 2ml Vial) 50 mcg PRN Q5MIN PRN IV MODERATE PAIN; Start 11/29/16 at 07:00; Stop 11/29/16 at 18:00; Status DC Morphine Sulfate 1 mg 1 mg PRN Q10MIN PRN IV SEVERE PAIN; Start 11/29/16 at 07: 00; Stop 11/29/16 at 18:00; Status DC Lactated Ringer's (Iv Lactated Ringers) 1,000 ml @ 30 mls/hr Q24H IV Last administered on 11/29/16t 12:30; Start 11/29/16 at 07:00; Stop 11/29/16 at 18:59; Status DC Lidocaine HCl 2 ml 1X PRN PRN ID IV START; Start 11/29/16 at 07:00; Stop at 18:00; Status DC Hydromorphone HCl (Dilaudid) 0.5 mg PRN Q10MIN PRN IV SEVERE PAIN, Second choice; Start 11/29/16 at 07:00; Stop 11/29/16 at 18:00; Status DC Prochlorperazine Edisylate (Compazine) 5 mg PACU PRN PRN IV NAUSEA; Start at 07:00; Stop 11/29/16 at 18:00; Status DC Carvedilol 12.5 mg 12.5 mg BIDWMEALS PO Last administered on 12/01/16 08:03; Start 11/28/16 at 17:00 Cefazolin Sodium/ Dextrose (Ancef 2gm Premix) 50 ml @ 100 mls/hr 1X ONCE IV ; Start 11/29/16 at 06:00; Stop 11/29/16 at 06:29; Status DC Zolpidem Tartrate (Ambien) 5 mg 1X ONCE PO Last administered on 11/28/16 22:07 ; Start 11/28/16 at 22:00; Stop 11/28/16 at 22:01; Status DC Phytonadione (Vitamin K ) 1 mg 1X ONCE SQ Last administered on 23:43; Start 11/29/16 at 00:00; Stop 11/29/16 at 00:01; Status DC Hydralazine HCl (Apresoline) 10 mg PRN Q4HRS PRN IVP ELEVATED BP, SEE COMMENTS ; Start 11/29/16 at 08:30 Lactobacillus Acidophilus (Bacid, Svitlana-Bid) 1 tab TIDWMEALS PO Last administered on 12/01/16 12:24; Start 11/29/16 at 12:00 Furosemide 40 mg 40 mg 1X ONCE IVP ; Start 11/29/16 at 12:45; Stop 11/29/16 at 12 :45; Status DC Heparin Sodium (Porcine)/Sodium Chloride (Iv Sodium Chloride 0.9% 500ml Bag) 505 ml @ 505 mls/hr 1X PERIOP ONCE IRR Last administered on 11/29/16 13:48; Start 11/29/16 at 15:00; Stop 11/29/16 at 15:59; Status DC Fentanyl Citrate (Fentanyl 2ml Vial) 25 mcg PRN Q5MIN PRN IV MILD PAIN; Start 11/30/16 at 07:00; Stop 12/01/16 at 06:59; Status DC Fentanyl Citrate (Fentanyl 2ml Vial) 50 mcg PRN Q5MIN PRN IV MODERATE PAIN; Start 11/30/16 at 07:00; Stop 12/01/16 at 06:59; Status DC Morphine Sulfate 1 mg 1 mg PRN Q10MIN PRN IV SEVERE PAIN; Start 11/30/16 at 07: 00; Stop 12/01/16 at 06:59; Status DC Lactated Ringer's (Iv Lactated Ringers) 1,000 ml @ 0 mls/hr Q0M IV Last administered on 11/30/16 11:17; Start 11/30/16 at 07:00; Stop 11/30/16 at 18:59; Status DC Lidocaine HCl 2 ml 1X PRN PRN ID IV START; Start 11/30/16 at 07:00; Stop at 06:59; Status DC Hydromorphone HCl (Dilaudid) 0.5 mg PRN Q10MIN PRN IV SEVERE PAIN, Second choice; Start 11/30/16 at 07:00; Stop 12/01/16 at 06:59; Status DC Prochlorperazine Edisylate (Compazine) 5 mg PACU PRN PRN IV NAUSEA; Start at 07:00; Stop 12/01/16 at 06:59; Status DC Fentanyl Citrate (Fentanyl 2ml Vial) 25 mcg PRN Q5MIN PRN IV MILD PAIN; Start 11/29/16 at 18:45 Fentanyl Citrate (Fentanyl 2ml Vial) 50 mcg PRN Q5MIN PRN IV MODERATE PAIN Last administered on 11/29/16 18:55; Start 11/29/16 at 18:45; Stop 11/29/16 at 21: 00; Status DC Hydromorphone HCl (Dilaudid) 0.5 mg PRN Q10MIN PRN IV SEVERE PAIN, Second choice; Start 11/29/16 at 18:45; Stop 11/29/16 at 21:00; Status DC Morphine Sulfate 1 mg PRN Q10MIN PRN IV SEVERE PAIN; Start 11/29/16 at 18:45; Stop 11/29/16 at 21:00; Status DC Ondansetron HCl (Zofran) 4 mg PRN Q6HRS PRN IV Nausea; Start 11/29/16 at 18:45; Stop 11/29/16 at 21:00; Status DC Prochlorperazine Edisylate (Compazine) 5 mg PACU PRN PRN IV NAUSEA; Start at 18:45; Stop 11/29/16 at 21:00; Status DC Clopidogrel Bisulfate (Plavix) 150 mg 1X ONCE PO Last administered on 19:22; Start 11/29/16 at 19:30; Stop 11/29/16 at 19:31; Status DC Vancomycin HCl 1 gm 1 gm STK-MED ONCE .ROUTE ; Start 11/29/16 at 13:00; Stop 11/30 at 08:28; Status DC Propofol (Diprivan) 20 ml @ As Directed STK-MED ONCE IV ; Start 11/30/16 at 11:14 ; Stop 11/30/16 at 11:15; Status DC Lidocaine HCl 100 mg STK-MED ONCE .ROUTE ; Start 11/30/16 at 11:14; Stop 11/30/16 at 11:15; Status DC Fentanyl Citrate 100 mcg 100 mcg STK-MED ONCE .ROUTE ; Start 11/30/16 at 11:14; Stop 11/30/16 at 11:15; Status DC Vancomycin HCl 250 ml @ 250 mls/hr 1X PREOP PRN IV Pre Op Last administered on 11/30/16 12:14; Start 12/01/16 at 06:00; Stop 12/01/16 at 18:00 Propofol (Diprivan) 50 ml @ As Directed STK-MED ONCE IV ; Start 11/30/16 at 12:19 ; Stop 11/30/16 at 12:20; Status DC Bupivacaine HCl (Marcaine 0.5%) 50 ml STK-MED ONCE IJ Last administered on 12:27; Start 11/30/16 at 12:27; Stop 11/30/16 at 12:54; Status DC Ephedrine Sulfate 50 mg STK-MED ONCE IV ; Start 11/30/16 at 12:47; Stop 11/30/16 at 12:48; Status DC Lidocaine HCl 20 ml 20 ml STK-MED ONCE IJ Last administered on 11/30/16 12:27; Start 11/30/16 at 12:27; Stop 11/30/16 at 12:54; Status DC Propofol (Diprivan) 50 ml @ As Directed STK-MED ONCE IV ; Start 11/30/16 at 13:07 ; Stop 11/30/16 at 13:08; Status DC Diphenhydramine HCl 50 mg 50 mg PRN Q6HRS PRN PO ITCHING; Start 11/30/16 at 22: 45 Sodium Chloride (Iv Sodium Chloride 0.9% 1000ml Bag) 1,000 ml @ 75 mls/hr [id number] IV Last administered on 12/01/16t 12:25; Start 12/01/16 at 12:30 Oxycodone/ Acetaminophen (Percocet 5/325) 1 tab PRN Q4HRS PRN PO PAIN; Start at 11:45 Active Scripts Active Reported Valsartan-Hctz 160-12.5 Mg Tab (Valsartan/Hydrochlorothiazide) 1 Each Tablet 1 Each PO DAILY Fish Oil 1,200 Mg Softgel ([place]-3 Fatty Acids/Fish Oil) 1 Each Capsule 1 Each PO BID Humalog (Insulin Lispro) 100 Unit/1 Ml Insuln.pen 14 Unit SQ TIDAC Lantus (Insulin Glargine,Hum.rec.anlog) 100 Unit/1 Ml Vial 40 Unit SQ HS Sodium Bicarbonate 650 Mg Tablet 1 Tab PO BID Aspirin 325 Mg Tablet 325 Mg PO Warfarin Sodium 5 Mg Tablet 5 Mg PO DAILY Coreg (Carvedilol) 6.25 Mg Tablet 6.25 Mg PO BIDWMEALS Lexapro (Escitalopram Oxalate) 20 Mg Tablet 20 Mg PO DAILY Vitals/I & O Vital Sign - Last 24 Hours 11/30/16 11/30/16 11/30/16 11/30/16 14:06 14:21 14:55 15:13 Temp 97.0 98.1 97.0 98.1 Pulse 62 58 60 60 Resp 21 22 14 14 B/P 147/63 151/71 168/68 150/72 Pulse Ox 94 93 O2 Delivery Room Air Room Air Room Air Room Air O2 Flow Rate 97.0 11/30/16 11/30/16 11/30/16 11/30/16 15:30 15:30 15:45 15:45 Pulse 68 68 66 66 Resp 14 16 16 16 B/P 139/65 139/65 155/63 155/63 Pulse Ox 99 99 97 97 O2 Delivery Room Air Room Air Room Air Room Air 11/30/16 11/30/16 11/30/16 11/30/16 16:00 18:10 18:10 19:00 Temp 97.9 97.9 Pulse 66 62 60 Resp 16 12 20 B/P 114/59 144/66 134/63 Pulse Ox 97 O2 Delivery Room Air Room Air 11/30/16 11/30/16 12/01/16 12/01/16 20:00 23:11 03:00 07:00 Temp 97.7 97.8 98.2 97.7 97.8 98.2 Pulse 64 60 67 Resp 20 20 22 B/P 122/58 154/70 199/86 Pulse Ox 94 93 92 O2 Delivery Room Air Room Air Room Air Room Air 12/01/16 12/01/16 12/01/16 12/01/16 08:00 08:03 08:03 08:03 Pulse 72 72 Resp 18 B/P 199/86 199/86 O2 Delivery Room Air Room Air 12/01/16 12/01/16 09:03 11:00 Temp 97.6 97.6 Pulse 62 Resp 18 22 B/P 132/62 Pulse Ox 91 O2 Delivery Room Air Room Air Intake and Output 11/30/16 11/30/16 12/01/16 15:00 23:00 07:00 Intake Total 1150 ml 450 ml Output Total 200 ml 200 ml Balance 950 ml 250 ml EMILIA GOMEZ APRN Dec 01, 2016 14:39
[2016-12-01 15:00] VITALS: BP 127/60
[2016-12-01] MEDS ORDERED: POTASSIUM CHLORIDE 20 MEQ TABLET.ER. PO ONE (15:00)
[2016-12-01] MEDS: MICAFUNGIN 100 MG in IV DEXTROSE 5% 100 ML IV SCH (15:17)
[2016-12-01] MEDS ORDERED: FUROSEMIDE 20 MG/2 ML VIAL IVP ONE (16:15)
[2016-12-01] MEDS: OXYCODONE/APAP 5/325 TABLET. PO PRN (18:14)
[2016-12-01 19:35] VITALS: BP 185/77
[2016-12-01] MEDS: hydrALAZINE 20 MG/ML VIAL. IVP PRN (20:21)
[2016-12-01] MEDS: INSULIN DETEMIR 300 UNITS/3 ML INSULN.PEN. SQ SCH (21:40)
[2016-12-01] MEDS: DIPHENHYDRAMINE HCL 25 MG CAPSULE PO PRN (22:52)
[2016-12-01 23:27] VITALS: BP 167/72
[2016-12-02 03:50] VITALS: BP 194/80
[2016-12-02] MEDS: hydrALAZINE 20 MG/ML VIAL. IVP PRN (04:42)
[2016-12-02] MEDS: MEROPENEM 500 MG in IV NORMAL SALINE 50ML 50 ML IV SCH (05:42)
[2016-12-02 07:00] VITALS: BP 145/63
--- NOTE | 2016-12-02 07:52 | PDOC ---
Provider Note Provider Note Vascular Surgery Patient is doing well, sitting comfortably in the chair. 98.5 HR 66 BP 164/80 94% on RA Gen - alert and oriented x3 Resp - nonlabored breathing, no wheezing Abd - soft Incisions - right leg incisions intact, no drainage. Pulse: palpable right pop-PT graft pulse A/P: PAD POD#3 s/p right pop - PT bypass, POD#2 TMA (podiatry) - Pain controlled - tolerating diet - Continue insulin regimen with ISS, bld glc 191 - Continue BP meds, hydralazine prn for SBP 194 - Remove wong if ok with primary, creat 1.4 - Continue abx: cheo / micafungin per ID - continue ASA / plavix, may start anticoagulation (h/o DVT) when ok with podiatry - PT. Heel touch only on the right, Income Tax Manager to assess for half-shoe LAILA PORTER MD Dec 02, 2016 07:52
[2016-12-02] MEDS: LOSARTAN POTASSIUM 50 MG TABLET. PO SCH (09:32)
[2016-12-02] MEDS: OMEGA-3 FATTY ACIDS/FISH OIL 1,000 MG CAPSULE. PO SCH (09:32)
[2016-12-02] MEDS: ASPIRIN 325 MG TABLET PO SCH (09:32)
[2016-12-02] MEDS: LACTOBACILLUS ACIDOPH & BULGAR 1 TABLET. PO SCH ×3 (09:33→18:44)
[2016-12-02] MEDS: HYDROCHLOROTHIAZIDE 12.5 MG CAPSULE. PO SCH (09:33)
[2016-12-02] MEDS: SODIUM BICARBONATE 650 MG TABLET. PO SCH ×2 (09:33→21:32)
[2016-12-02] MEDS: CARVEDILOL 12.5 MG TABLET PO SCH ×2 (09:33→18:41)
[2016-12-02] MEDS: ESCITALOPRAM 10 MG TABLET. PO SCH (09:33)
[2016-12-02] MEDS: INSULIN ASPART 300 UNITS/3 ML INSULN.PEN SQ SCH ×6 (09:44→18:47)
[2016-12-02] MEDS: OXYCODONE/APAP 5/325 TABLET. PO PRN ×3 (10:09→19:58)
[2016-12-02 11:00] VITALS: BP 136/60
--- NOTE | 2016-12-02 11:38 | PDOC ---
PROGRESS NOTES Chief Complaint Chief Complaint A/P 1. 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 dm2 on insulin 4. H/O CAD post CAG 5. HTN 6. HLD 7. peripheral artery disease 8 anemia of CKD 9. CKD4 10. H/O DVT OF right leg on Coumadin Plan continue broad spectrum abx per id monitor renal functions blood Sugar control follow id and vascular recommendation pain control PT/OT Labs reviwed. anticipated DC in AM History of Present Illness History of Present Illness No fever no chills Vitals Vitals Vital Signs Date Time Temp Pulse Resp B/P Pulse Ox O2 Delivery O2 Flow Rate FiO2 12/02/16 11:00 98.1 64 20 136/60 92 Room Air 98.1 Physical Exam General: Alert, Oriented X3, No acute distress Heart: Regular rate, Normal S1, Normal S2, No murmurs Lungs: Clear, Other Abdomen: Normal bowel sounds, Soft, No tenderness, No masses Extremities: Other Skin: Other Labs LABS Laboratory Tests Test 12/01/16 12:20 12/01/16 17:07 12/01/16 21:06 12/02/16 04:15 Sodium Level 139mmol/L (136-145) Potassium Level 3.8mmol/L (3.5-5.1) Chloride Level 104mmol/L (98-107) Carbon Dioxide Level 29mmol/L (21-32) Anion Gap 6 (6-14) Blood Urea Nitrogen 26mg/dL (8-26) Creatinine 1.4mg/dL (0.7-1.3) Estimated GFR (Cockcroft-Gault) 49.0 Glucose Level 154mg/dL (70-99) Calcium Level 8.2mg/dL (8.5-10.1) HE-Zrx-G-Type Natriuretic Peptide 1961pg/mL (0-449) 2202pg/mL (0-449) Glucose (Fingerstick) 191mg/dL (70-99) 266mg/dL (70-99) Assessment and Plan Assessmemt and Plan Problems Medical Problems: (1) Cellulitis of right toe Status: Acute (2) Osteomyelitis Status: Acute (3) Peripheral vascular disease Status: Acute Problems: Comment Review of Relevant I have reviewed the following items ggae (where applicable) has been applied. Labs Laboratory Tests Test 11/30/16 13:44 11/30/16 17:24 11/30/16 21:23 12/01/16 07:53 Glucose (Fingerstick) 158mg/dL (70-99) 229mg/dL (70-99) 119mg/dL (70-99) 57mg/dL (70-99) Test 12/01/16 08:22 12/01/16 10:41 12/01/16 12:20 12/01/16 17:07 Glucose (Fingerstick) 125mg/dL (70-99) 192mg/dL (70-99) 191mg/dL (70-99) Sodium Level 139mmol/L (136-145) Potassium Level 3.8mmol/L (3.5-5.1) Chloride Level 104mmol/L (98-107) Carbon Dioxide Level 29mmol/L (21-32) Anion Gap 6 (6-14) Blood Urea Nitrogen 26mg/dL (8-26) Creatinine 1.4mg/dL (0.7-1.3) Estimated GFR (Cockcroft-Gault) 49.0 Glucose Level 154mg/dL (70-99) Calcium Level 8.2mg/dL (8.5-10.1) OG-Rrv-F-Type Natriuretic Peptide 1961pg/mL (0-449) Test 12/01/16 21:06 12/02/16 04:15 Glucose (Fingerstick) 266mg/dL (70-99) MF-Cue-P-Type Natriuretic Peptide 2202pg/mL (0-449) Laboratory Tests Test 12/01/16 12:20 12/01/16 17:07 12/01/16 21:06 12/02/16 04:15 Sodium Level 139mmol/L (136-145) Potassium Level 3.8mmol/L (3.5-5.1) Chloride Level 104mmol/L (98-107) Carbon Dioxide Level 29mmol/L (21-32) Anion Gap 6 (6-14) Blood Urea Nitrogen 26mg/dL (8-26) Creatinine 1.4mg/dL (0.7-1.3) Estimated GFR (Cockcroft-Gault) 49.0 Glucose Level 154mg/dL (70-99) Calcium Level 8.2mg/dL (8.5-10.1) HY-Umy-D-Type Natriuretic Peptide 1961pg/mL (0-449) 2202pg/mL (0-449) Glucose (Fingerstick) 191mg/dL (70-99) 266mg/dL (70-99) Medications Current Medications Vancomycin HCl 1 each 1 each PRN DAILY PRN MC SEE COMMENTS; Start 11/26/16 at 12 :45; Stop 11/26/16 at 13:30; Status DC Sodium Chloride 500 ml @ 500 mls/hr 1X ONCE IV Last administered on 11/26/16 14:52; Start 11/26/16 at 12:45; Stop 11/26/16 at 13:44; Status DC Vancomycin HCl/ Sodium Chloride (Iv Sodium Chloride 0.9% 500ml Bag) 500 ml @ 250 mls/hr 1X ONCE IV Last administered on 11/26/16 13:09; Start 11/26/16 at 13 :00; Stop 11/26/16 at 14:59; Status DC Ondansetron HCl (Zofran) 4 mg PRN Q8HRS PRN IV NAUSEA/VOMITING; Start 11/26/16 at 12:45; Stop 11/26/16 at 15:59; Status DC Morphine Sulfate 2 mg 2 mg PRN Q2HR PRN IV PAIN; Start 11/26/16 at 12:45; Stop 11/27/16 at 12:44; Status DC Sodium Chloride 1,000 ml @ 125 mls/hr Q8H IV Last administered on 11/27/16 05: 57; Start 11/26/16 at 12:43; Stop 11/27/16 at 12:42; Status DC Meropenem 500 mg/ Sodium Chloride 50 ml @ 100 mls/hr Q6HRS IV Last administered on 12/02/16 05:42; Start 11/26/16 at 14:00 Micafungin Sodium 100 mg/Dextrose 100 ml @ 100 mls/hr Q24H IV Last administered on 12/01/16 15:17; Start 11/26/16 at 14:00 Linezolid (Zyvox Premix) 300 ml @ 300 mls/hr Q12HR IV Last administered on 11/28 08:38; Start 11/26/16 at 14:00; Stop 11/28/16 at 12:00; Status DC Acetaminophen (Tylenol) 650 mg PRN Q6HRS PRN PO MILD PAIN / TEMP; Start at 15:45 Ondansetron HCl (Zofran) 4 mg PRN Q6HRS PRN IV NAUSEA/VOMITING Last administered on 12/02/16 05:41; Start 11/26/16 at 15:45 Acetaminophen/ Hydrocodone Bitart (Lortab 5/325) 1 tab PRN Q4HRS PRN PO PAIN Last administered on 12/01/16 08:03; Start 11/26/16 at 15:45 Insulin Aspart (Novolog) 0-9 UNITS TIDWMEALS SQ Last administered on 11/30/16 18:14; Start 11/26/16 at 17:00 Dextrose 12.5 gm PRN Q15MIN PRN IV SEE COMMENTS; Start 11/26/16 at 15:45 Aspirin (Harrison Aspirin) 325 mg DAILY PO Last administered on 12/02/16 09:32; Start 11/27/16 at 09:00 Carvedilol (Coreg) 6.25 mg BIDWMEALS PO Last administered on 11/28/16 08:40; Start 11/26/16 at 17:00; Stop 11/28/16 at 15:41; Status DC Sodium Bicarbonate (Sodium Bicarbonate) 650 mg BID PO Last administered on 12/02 09:33; Start 11/26/16 at 21:00 Escitalopram Oxalate (Lexapro) 20 mg DAILY PO Last administered on 12/02/16 09 :33; Start 11/27/16 at 09:00 Non-Formulary Medication 40 unit HS SQ ; Start 11/26/16 at 21:00; Stop 11/26/16 at 21:00; Status DC Non-Formulary Medication 14 unit TIDAC SQ ; Start 11/26/16 at 16:30; Stop at 16:30; Status DC Fish Oil (Fish Oil) 1,000 mg DAILY PO Last administered on 12/02/16 09:32; Start 11/27/16 at 09:00 Hydrochlorothiazide (Microzide) 12.5 mg DAILY PO Last administered on 09:33; Start 11/27/16 at 09:00 Insulin Detemir (Levemir) 40 units QHS SQ Last administered on 12/01/16 21:40 ; Start 11/26/16 at 21:00 Insulin Aspart (Novolog) 10 units TIDWMEALS SQ Last administered on 12/02/16 09:44; Start 11/26/16 at 17:00 Losartan Potassium (Cozaar) 100 mg DAILY PO Last administered on 12/02/16 09: 32; Start 11/27/16 at 09:00 Acetylcysteine (Mucomyst 20% Oral Solution) 600 mg BID PO Last administered on 11/28/16 22:07; Start 11/27/16 at 12:45; Stop 11/28/16 at 22:00; Status DC Ondansetron HCl (Zofran) 4 mg PRN Q6HRS PRN IV Nausea; Start 11/28/16 at 07:00; Stop 11/28/16 at 23:00; Status DC Fentanyl Citrate (Fentanyl 2ml Vial) 25 mcg PRN Q5MIN PRN IV MILD PAIN; Start 11/28/16 at 07:00; Stop 11/28/16 at 23:00; Status DC Fentanyl Citrate (Fentanyl 2ml Vial) 50 mcg PRN Q5MIN PRN IV MODERATE PAIN; Start 11/28/16 at 07:00; Stop 11/28/16 at 23:00; Status DC Morphine Sulfate 1 mg 1 mg PRN Q10MIN PRN IV SEVERE PAIN; Start 11/28/16 at 07: 00; Stop 11/28/16 at 23:00; Status DC Lactated Ringer's (Iv Lactated Ringers) 1,000 ml @ 0 mls/hr Q0M IV ; Start 11/28 at 07:00; Stop 11/28/16 at 18:59; Status DC Lidocaine HCl 2 ml 1X PRN PRN ID IV START; Start 11/28/16 at 07:00; Stop at 06:59; Status DC Hydromorphone HCl (Dilaudid) 0.5 mg PRN Q10MIN PRN IV SEVERE PAIN, Second choice; Start 11/28/16 at 07:00; Stop 11/28/16 at 23:00; Status DC Prochlorperazine Edisylate (Compazine) 5 mg PACU PRN PRN IV NAUSEA; Start at 07:00; Stop 11/28/16 at 23:00; Status DC Fentanyl Citrate (Fentanyl 2ml Vial) 25 mcg PRN Q5MIN PRN IV MILD PAIN; Start 11/29/16 at 07:00; Stop 11/29/16 at 18:00; Status DC Fentanyl Citrate (Fentanyl 2ml Vial) 50 mcg PRN Q5MIN PRN IV MODERATE PAIN; Start 11/29/16 at 07:00; Stop 11/29/16 at 18:00; Status DC Morphine Sulfate 1 mg 1 mg PRN Q10MIN PRN IV SEVERE PAIN; Start 11/29/16 at 07: 00; Stop 11/29/16 at 18:00; Status DC Lactated Ringer's (Iv Lactated Ringers) 1,000 ml @ 30 mls/hr Q24H IV Last administered on 11/29/16 12:30; Start 11/29/16 at 07:00; Stop 11/29/16 at 18:59; Status DC Lidocaine HCl 2 ml 1X PRN PRN ID IV START; Start 11/29/16 at 07:00; Stop at 18:00; Status DC Hydromorphone HCl (Dilaudid) 0.5 mg PRN Q10MIN PRN IV SEVERE PAIN, Second choice; Start 11/29/16 at 07:00; Stop 11/29/16 at 18:00; Status DC Prochlorperazine Edisylate (Compazine) 5 mg PACU PRN PRN IV NAUSEA; Start at 07:00; Stop 11/29/16 at 18:00; Status DC Carvedilol 12.5 mg 12.5 mg BIDWMEALS PO Last administered on 12/02/16 09:33; Start 11/28/16 at 17:00 Cefazolin Sodium/ Dextrose (Ancef 2gm Premix) 50 ml @ 100 mls/hr 1X ONCE IV ; Start 11/29/16 at 06:00; Stop 11/29/16 at 06:29; Status DC Zolpidem Tartrate (Ambien) 5 mg 1X ONCE PO Last administered on 11/28/16 22:07 ; Start 11/28/16 at 22:00; Stop 11/28/16 at 22:01; Status DC Phytonadione (Vitamin K ) 1 mg 1X ONCE SQ Last administered on 23:43; Start 11/29/16 at 00:00; Stop 11/29/16 at 00:01; Status DC Hydralazine HCl (Apresoline) 10 mg PRN Q4HRS PRN IVP ELEVATED BP, SEE COMMENTS Last administered on 12/02/16 04:42; Start 11/29/16 at 08:30 Lactobacillus Acidophilus (Bacid, Svitlana-Bid) 1 tab TIDWMEALS PO Last administered on 12/02/16 09:33; Start 11/29/16 at 12:00 Furosemide 40 mg 40 mg 1X ONCE IVP ; Start 11/29/16 at 12:45; Stop 11/29/16 at 12 :45; Status DC Heparin Sodium (Porcine)/Sodium Chloride (Iv Sodium Chloride 0.9% 500ml Bag) 505 ml @ 505 mls/hr 1X PERIOP ONCE IRR Last administered on 11/29/16 13:48; Start 11/29/16 at 15:00; Stop 11/29/16 at 15:59; Status DC Fentanyl Citrate (Fentanyl 2ml Vial) 25 mcg PRN Q5MIN PRN IV MILD PAIN; Start 11/30/16 at 07:00; Stop 12/01/16 at 06:59; Status DC Fentanyl Citrate (Fentanyl 2ml Vial) 50 mcg PRN Q5MIN PRN IV MODERATE PAIN; Start 11/30/16 at 07:00; Stop 12/01/16 at 06:59; Status DC Morphine Sulfate 1 mg 1 mg PRN Q10MIN PRN IV SEVERE PAIN; Start 11/30/16 at 07: 00; Stop 12/01/16 at 06:59; Status DC Lactated Ringer's (Iv Lactated Ringers) 1,000 ml @ 0 mls/hr Q0M IV Last administered on 11/30/16 11:17; Start 11/30/16 at 07:00; Stop 11/30/16 at 18:59; Status DC Lidocaine HCl 2 ml 1X PRN PRN ID IV START; Start 11/30/16 at 07:00; Stop at 06:59; Status DC Hydromorphone HCl (Dilaudid) 0.5 mg PRN Q10MIN PRN IV SEVERE PAIN, Second choice; Start 11/30/16 at 07:00; Stop 12/01/16 at 06:59; Status DC Prochlorperazine Edisylate (Compazine) 5 mg PACU PRN PRN IV NAUSEA; Start at 07:00; Stop 12/01/16 at 06:59; Status DC Fentanyl Citrate (Fentanyl 2ml Vial) 25 mcg PRN Q5MIN PRN IV MILD PAIN; Start 11/29/16 at 18:45; Stop 12/01/16 at 16:55; Status DC Fentanyl Citrate (Fentanyl 2ml Vial) 50 mcg PRN Q5MIN PRN IV MODERATE PAIN Last administered on 11/29/16 18:55; Start 11/29/16 at 18:45; Stop 11/29/16 at 21: 00; Status DC Hydromorphone HCl (Dilaudid) 0.5 mg PRN Q10MIN PRN IV SEVERE PAIN, Second choice; Start 11/29/16 at 18:45; Stop 11/29/16 at 21:00; Status DC Morphine Sulfate 1 mg PRN Q10MIN PRN IV SEVERE PAIN; Start 11/29/16 at 18:45; Stop 11/29/16 at 21:00; Status DC Ondansetron HCl (Zofran) 4 mg PRN Q6HRS PRN IV Nausea; Start 11/29/16 at 18:45; Stop 11/29/16 at 21:00; Status DC Prochlorperazine Edisylate (Compazine) 5 mg PACU PRN PRN IV NAUSEA; Start at 18:45; Stop 11/29/16 at 21:00; Status DC Clopidogrel Bisulfate (Plavix) 150 mg 1X ONCE PO Last administered on 19:22; Start 11/29/16 at 19:30; Stop 11/29/16 at 19:31; Status DC Vancomycin HCl 1 gm 1 gm STK-MED ONCE .ROUTE ; Start 11/29/16 at 13:00; Stop 11/30 at 08:28; Status DC Propofol (Diprivan) 20 ml @ As Directed STK-MED ONCE IV ; Start 11/30/16 at 11:14 ; Stop 11/30/16 at 11:15; Status DC Lidocaine HCl 100 mg STK-MED ONCE .ROUTE ; Start 11/30/16 at 11:14; Stop 11/30/16 at 11:15; Status DC Fentanyl Citrate 100 mcg 100 mcg STK-MED ONCE .ROUTE ; Start 11/30/16 at 11:14; Stop 11/30/16 at 11:15; Status DC Vancomycin HCl 250 ml @ 250 mls/hr 1X PREOP PRN IV Pre Op Last administered on 11/30/16 12:14; Start 12/01/16 at 06:00; Stop 12/01/16 at 16:57; Status DC Propofol (Diprivan) 50 ml @ As Directed STK-MED ONCE IV ; Start 11/30/16 at 12:19 ; Stop 11/30/16 at 12:20; Status DC Bupivacaine HCl (Marcaine 0.5%) 50 ml STK-MED ONCE IJ Last administered on 12:27; Start 11/30/16 at 12:27; Stop 11/30/16 at 12:54; Status DC Ephedrine Sulfate 50 mg STK-MED ONCE IV ; Start 11/30/16 at 12:47; Stop 11/30/16 at 12:48; Status DC Lidocaine HCl 20 ml 20 ml STK-MED ONCE IJ Last administered on 11/30/16 12:27; Start 11/30/16 at 12:27; Stop 11/30/16 at 12:54; Status DC Propofol (Diprivan) 50 ml @ As Directed STK-MED ONCE IV ; Start 11/30/16 at 13:07 ; Stop 11/30/16 at 13:08; Status DC Diphenhydramine HCl 50 mg 50 mg PRN Q6HRS PRN PO ITCHING Last administered on 22:52; Start 11/30/16 at 22:45 Sodium Chloride (Iv Sodium Chloride 0.9% 1000ml Bag) 1,000 ml @ 75 mls/hr [id number] IV Last administered on 12/01/16 12:25; Start 12/01/16 at 12:30; Stop 12/01/16 at 16:16; Status DC Oxycodone/ Acetaminophen (Percocet 5/325) 1 tab PRN Q4HRS PRN PO PAIN Last administered on 12/02/16 10:09; Start 12/01/16 at 11:45 Potassium Chloride (Klor-Con) 40 meq 1X ONCE PO Last administered on 15:18; Start 12/01/16 at 15:00; Stop 12/01/16 at 15:01; Status DC Furosemide (Lasix) 20 mg 1X ONCE IVP Last administered on 12/01/16 16:35; Start 12/01/16 at 16:15; Stop 12/01/16 at 16:18; Status DC Active Scripts Active Reported Valsartan-Hctz 160-12.5 Mg Tab (Valsartan/Hydrochlorothiazide) 1 Each Tablet 1 Each PO DAILY Fish Oil 1,200 Mg Softgel (Spencer-3 Fatty Acids/Fish Oil) 1 Each Capsule 1 Each PO BID Humalog (Insulin Lispro) 100 Unit/1 Ml Insuln.pen 14 Unit SQ TIDAC Lantus (Insulin Glargine,Hum.rec.anlog) 100 Unit/1 Ml Vial 40 Unit SQ HS Sodium Bicarbonate 650 Mg Tablet 1 Tab PO BID Aspirin 325 Mg Tablet 325 Mg PO Warfarin Sodium 5 Mg Tablet 5 Mg PO DAILY Coreg (Carvedilol) 6.25 Mg Tablet 6.25 Mg PO BIDWMEALS Lexapro (Escitalopram Oxalate) 20 Mg Tablet 20 Mg PO DAILY Vitals/I & O Vital Sign - Last 24 Hours 12/01/16 12/01/16 12/01/16 12/01/16 15:00 18:12 18:14 19:14 Temp 97.8 97.8 Pulse 68 73 Resp 22 18 B/P 127/60 127/60 Pulse Ox 94 O2 Delivery Room Air Room Air Room Air 12/01/16 12/01/16 12/01/16 12/01/16 19:35 20:00 20:21 23:27 Temp 98.2 98.2 98.2 98.2 Pulse 70 70 67 Resp 26 22 B/P 185/77 185/77 167/72 Pulse Ox 93 95 O2 Delivery Room Air Room Air Room Air 12/02/16 12/02/16 12/02/16 12/02/16 03:50 04:42 07:00 09:32 Temp 98.5 98.0 98.5 98.0 Pulse 66 66 76 76 Resp 28 18 B/P 194/80 194/80 145/63 145/63 Pulse Ox 94 O2 Delivery Room Air Room Air 12/02/16 12/02/16 12/02/16 09:33 10:09 11:00 Temp 98.1 98.1 Pulse 76 64 Resp 20 20 B/P 145/63 136/60 Pulse Ox 92 O2 Delivery Room Air Room Air Intake and Output 12/01/16 12/01/16 12/02/16 15:00 23:00 07:00 Intake Total 400 ml Output Total 1800 ml 1150 ml Balance -1800 ml -750 ml JESS VILLAFANA MD Dec 02, 2016 11:38
--- NOTE | 2016-12-02 11:39 | PDOC ---
Infectious Disease Note Subjective Subjective c/o right pain earlier, feeling better now Tired + BM ROS ROS GEN: Denies fevers, chills, sweats CV: Denies chest pain RESP: Denies shortness of air, cough GI: Denies n/v/d Vital Sign Vital Signs Vital Signs Date Time Temp Pulse Resp B/P Pulse Ox O2 Delivery O2 Flow Rate FiO2 12/02/16 11:00 98.1 64 20 136/60 92 Room Air 98.1 Physical Exam PHYSICAL EXAM GENERAL: Up in the chair, sleepy HEENT: Oral cavity pink and moist LUNGS: Clear HEART: S1S2, no gallop, no murmur ABD: Soft, NT, BS present EXT: No gross edema, no cyanosis. Right foot bandaged CARE MANAGEMENT ASSISTANT: Sleepy, oriented SKIN: No rash IV: ok Labs Lab Laboratory Tests Test 12/01/16 12:20 12/01/16 17:07 12/01/16 21:06 12/02/16 04:15 Sodium Level 139mmol/L (136-145) Potassium Level 3.8mmol/L (3.5-5.1) Chloride Level 104mmol/L (98-107) Carbon Dioxide Level 29mmol/L (21-32) Anion Gap 6 (6-14) Blood Urea Nitrogen 26mg/dL (8-26) Creatinine 1.4mg/dL (0.7-1.3) Estimated GFR (Cockcroft-Gault) 49.0 Glucose Level 154mg/dL (70-99) Calcium Level 8.2mg/dL (8.5-10.1) XY-Woa-S-Type Natriuretic Peptide 1961pg/mL (0-449) 2202pg/mL (0-449) Glucose (Fingerstick) 191mg/dL (70-99) 266mg/dL (70-99) Objective Assessment Wet Gangrene improved to dry- right 3 rd toe Staph aureus 2/. S/p TMA 11/30 PAD - s/p by bypass 11/29. right popiteal to posterior tibial artery bypass with spliced great and small saphenous veins PCN allergy H/o strep Loose stool - some better today Plan Plan of Care Cont Meropenem and Micafungin. likely wean to po or d/c abx. will defer to Dr. Mercy Murphy Cont probiotics f/u am labs Attending Co-Sign The patient was seen and interviewed as well as examined at the bedside. The chart was reviewed. The case was discussed. Agree with the plan of care. d/c iv antibiotics, po vantin d/w in detail, incision seen, looks good RICHARDTAMMI Jorge NARAYAN Dec 02, 2016 11:39 ELIE MURPHY MD Dec 02, 2016 13:23
[2016-12-02 11:46] LABS: CALCIUM 8.4 mg/dL (8.5-10.1); CREATININE 1.2 mg/dL (0.7-1.3); GFR 58.6; POTASSIUM 3.8 mmol/L (3.5-5.1)
[2016-12-02] MEDS: CEFPODOXIME PROXETIL 200 MG TABLET PO SCH ×2 (14:35→21:32)
[2016-12-02 15:00] VITALS: BP 125/58
[2016-12-02 19:35] VITALS: BP 129/63
[2016-12-02] MEDS: INSULIN DETEMIR 300 UNITS/3 ML INSULN.PEN. SQ SCH (21:36)
[2016-12-02] MEDS: DIPHENHYDRAMINE HCL 25 MG CAPSULE PO PRN (23:12)
[2016-12-02 23:28] VITALS: BP 129/60
[2016-12-03] MEDS: OXYCODONE/APAP 5/325 TABLET. PO PRN ×3 (00:31→14:27)
--- NOTE | 2016-12-03 03:00 | PN ---
DATE: 12/01/2016 DIAGNOSIS: One day status post transmetatarsal amputation, right foot. SUBJECTIVE: I visited the patient on behalf of my partner, Dr. Gerard today. He is one day status post transmetatarsal amputation of the right foot performed at [facility]. The patient states that he has had minimal amount of discomfort which is responding to his Lortab orally. He denies any fever, night sweats, chills or vomiting. He is anxious to return to his home today if possible. He has a normal appetite and is resting comfortably at the time of my visit. PHYSICAL EXAMINATION: EXTREMITIES: The patient's dressing on the right foot is dry, clean and intact. Following removal, there was a minimal amount of dried hemorrhage noted within the bandage itself. No signs of active hemorrhage appreciated. The wound edges are well coapted with sutures intact. There is no erythema, calor or induration. There is no visible ecchymosis about the right foot. There is a drain in place, which was removed today in toto with no active hemorrhage noted following removal. VITAL SIGNS: Showed the patient to be afebrile. RECOMMENDATIONS: Discussed the patient's treatment options. I maintained the Xeroform over the incision site. I then applied gauze soaked with Betadine solution over the distal aspect of the right foot stump followed by a sterile gauze compression dressing. The patient is to maintain as dry, clean and intact until Sunday, at which time a visiting nurse will hopefully see him in his home. He is to resume his oral antibiotics immediately upon return to his home. I also ordered a Cam walker to be worn on the right lower extremity with the patient bearing weight solely on the heel if possible. I have also recommended to him that he have bathroom privileges, up and back to the bathroom and kitchen as necessary. Otherwise, he is to rest the extremity. Educated him on the importance of allowing the wound edges to heal with minimal amount of friction and also to prevent or diminish the potential that he bump the foot, thus disrupting the sutures. Advised him to contact my office immediately if he notes increasing pain or he starts to run a fever. He will be seen in my clinic in less than [address] Gerard. He is to resume his normal diabetic diet. I spoke with the hospitalist today. Recommend that assuming there is clearance from both the hospitalist and the vascular team, the patient may be discharged to his home today. JOSEPHINE CASTAÑEDA DPM DR: VINAY/earnest JOB#: [id number] / [id number]
[2016-12-03 03:45] VITALS: BP 168/79
[2016-12-03 05:30] LABS: BASO % 0 % (0-3); EOS % 2 % (0-3); HEMATOCRIT 23.9 % (39.0-53.0); HEMOGLOBIN 8.1 g/dL (13.0-17.5); LYMPH # 2.5 x10^3/uL (1.0-4.8); LYMPH % 30 % (24-48); MEAN CORPUSCULAR HEMOGLOBIN 31 pg (25-35); MEAN CORPUSCULAR HGB CONC 34 g/dL (31-37); MEAN CORPUSCULAR VOLUME 90 fL (79-100); MONO % 10 % (0-9); NEUT % 58 % (31-73); PLATELET COUNT 261 x10^3/uL (140-400); RED BLOOD COUNT 2.64 x10^6/uL (4.30-5.70); RED CELL DISTRIBUTION WIDTH 14.7 % (11.5-14.5); WHITE BLOOD COUNT 8.3 x10^3/uL (4.0-11.0)
--- NOTE | 2016-12-03 07:12 | PDOC ---
Provider Note Provider Note Vascular Surgery Patient is resting in bed, no events overnight. VSS Gen - alert and oriented x3 Resp - nonlabored breathing, no wheezing Abd - soft Incisions - right leg incisions intact, no drainage. Pulse: palpable right pop-PT graft pulse A/P: PAD POD#4 s/p right pop - PT bypass, POD#3 TMA (podiatry) - Pain controlled - tolerating diet, though decreased intake - Continue insulin regimen with ISS, - Continue BP meds, better control yesterday afternoon - Dalton removed, urinating - Continue abx: IV abx off, vantin - continue ASA / plavix, may start anticoagulation (h/o DVT) when ok with podiatry - PT. Heel touch only on the right, Cash Reconciliation Specialist to assess for half-shoe - May be discharged (home vs SNF) depending on mobility as determined by PT, he is still only minimally walking LAILA PORTER MD Dec 03, 2016 07:12
[2016-12-03 07:20] VITALS: BP 162/69
[2016-12-03] MEDS: INSULIN ASPART 300 UNITS/3 ML INSULN.PEN SQ SCH ×6 (08:00→18:40)
[2016-12-03] MEDS: CARVEDILOL 12.5 MG TABLET PO SCH ×2 (08:53→18:39)
[2016-12-03] MEDS: SODIUM BICARBONATE 650 MG TABLET. PO SCH ×2 (08:53→21:04)
[2016-12-03] MEDS: ASPIRIN 325 MG TABLET PO SCH (08:53)
[2016-12-03] MEDS: ESCITALOPRAM 10 MG TABLET. PO SCH (08:54)
[2016-12-03] MEDS: HYDROCHLOROTHIAZIDE 12.5 MG CAPSULE. PO SCH (08:55)
[2016-12-03] MEDS: LOSARTAN POTASSIUM 50 MG TABLET. PO SCH (08:55)
[2016-12-03] MEDS: LACTOBACILLUS ACIDOPH & BULGAR 1 TABLET. PO SCH ×3 (08:55→18:39)
[2016-12-03] MEDS: OMEGA-3 FATTY ACIDS/FISH OIL 1,000 MG CAPSULE. PO SCH (08:56)
[2016-12-03 11:15] VITALS: BP 126/56
[2016-12-03] MEDS: CEFPODOXIME PROXETIL 200 MG TABLET PO SCH ×2 (12:39→21:04)
[2016-12-03] MEDS ORDERED: FUROSEMIDE 20 MG/2 ML VIAL IVP ONE (14:30)
--- NOTE | 2016-12-03 15:09 | PDOC ---
PROGRESS NOTES Chief Complaint Chief Complaint A/P 1. 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 dm2 on insulin 4. H/O CAD post CAG 5. HTN 6. HLD 7. peripheral artery disease 8 anemia of CKD 9. CKD4 10. H/O DVT OF right leg on Coumadin Plan PO Vantin Lasix times one SNU placement SW consult SSI Pain control supportive care labs reviwed,. History of Present Illness History of Present Illness no fever no chills no chest pain Vitals Vitals Vital Signs Date Time Temp Pulse Resp B/P Pulse Ox O2 Delivery O2 Flow Rate FiO2 12/03/16 14:27 18 Room Air 12/03/16 11:15 97.8 69 126/56 93 97.8 Physical Exam General: Alert, Oriented X3, No acute distress Heart: Regular rate, Normal S1, Normal S2, No murmurs Lungs: Clear, Other Abdomen: Normal bowel sounds, Soft, No tenderness, No masses Extremities: Other Skin: Other Labs LABS Laboratory Tests Test 12/02/16 16:37 12/02/16 20:43 12/03/16 05:00 12/03/16 08:04 Glucose (Fingerstick) 77mg/dL (70-99) 129mg/dL (70-99) 57mg/dL (70-99) White Blood Count 8.3x10^3/uL (4.0-11.0) Red Blood Count 2.64x10^6/uL (4.30-5.70) Hemoglobin 8.1g/dL (13.0-17.5) Hematocrit 23.9% (39.0-53.0) Mean Corpuscular Volume 90fL (79-100) Mean Corpuscular Hemoglobin 31pg (25-35) Mean Corpuscular Hemoglobin Concent 34g/dL (31-37) Red Cell Distribution Width 14.7% (11.5-14.5) Platelet Count 261x10^3/uL (140-400) Neutrophils (%) (Auto) 58% (31-73) Lymphocytes (%) (Auto) 30% (24-48) Monocytes (%) (Auto) 10% (0-9) Eosinophils (%) (Auto) 2% (0-3) Basophils (%) (Auto) 0% (0-3) Neutrophils # (Auto) 4.8x10^3uL (1.8-7.7) Lymphocytes # (Auto) 2.5x10^3/uL (1.0-4.8) Monocytes # (Auto) 0.8x10^3/uL (0.0-1.1) Eosinophils # (Auto) 0.2x10^3/uL (0.0-0.7) Basophils # (Auto) 0.0x10^3/uL (0.0-0.2) Test 12/03/16 08:49 12/03/16 09:35 12/03/16 11:37 Glucose (Fingerstick) 55mg/dL (70-99) 131mg/dL (70-99) 189mg/dL (70-99) Assessment and Plan Assessmemt and Plan Problems Medical Problems: (1) Cellulitis of right toe Status: Acute (2) Osteomyelitis Status: Acute (3) Peripheral vascular disease Status: Acute Problems: Comment Review of Relevant I have reviewed the following items gage (where applicable) has been applied. Labs Laboratory Tests Test 12/01/16 17:07 12/01/16 21:06 12/02/16 04:15 12/02/16 07:56 Glucose (Fingerstick) 191mg/dL (70-99) 266mg/dL (70-99) 132mg/dL (70-99) Sodium Level 138mmol/L (136-145) Potassium Level 3.8mmol/L (3.5-5.1) Chloride Level 102mmol/L (98-107) Carbon Dioxide Level 27mmol/L (21-32) Anion Gap 9 (6-14) Blood Urea Nitrogen 23mg/dL (8-26) Creatinine 1.2mg/dL (0.7-1.3) Estimated GFR (Cockcroft-Gault) 58.6 Glucose Level 137mg/dL (70-99) Calcium Level 8.4mg/dL (8.5-10.1) OQ-Pii-G-Type Natriuretic Peptide 2202pg/mL (0-449) Test 12/02/16 11:21 12/02/16 16:37 12/02/16 20:43 12/03/16 05:00 Glucose (Fingerstick) 131mg/dL (70-99) 77mg/dL (70-99) 129mg/dL (70-99) White Blood Count 8.3x10^3/uL (4.0-11.0) Red Blood Count 2.64x10^6/uL (4.30-5.70) Hemoglobin 8.1g/dL (13.0-17.5) Hematocrit 23.9% (39.0-53.0) Mean Corpuscular Volume 90fL (79-100) Mean Corpuscular Hemoglobin 31pg (25-35) Mean Corpuscular Hemoglobin Concent 34g/dL (31-37) Red Cell Distribution Width 14.7% (11.5-14.5) Platelet Count 261x10^3/uL (140-400) Neutrophils (%) (Auto) 58% (31-73) Lymphocytes (%) (Auto) 30% (24-48) Monocytes (%) (Auto) 10% (0-9) Eosinophils (%) (Auto) 2% (0-3) Basophils (%) (Auto) 0% (0-3) Neutrophils # (Auto) 4.8x10^3uL (1.8-7.7) Lymphocytes # (Auto) 2.5x10^3/uL (1.0-4.8) Monocytes # (Auto) 0.8x10^3/uL (0.0-1.1) Eosinophils # (Auto) 0.2x10^3/uL (0.0-0.7) Basophils # (Auto) 0.0x10^3/uL (0.0-0.2) Test 12/03/16 08:04 12/03/16 08:49 12/03/16 09:35 12/03/16 11:37 Glucose (Fingerstick) 57mg/dL (70-99) 55mg/dL (70-99) 131mg/dL (70-99) 189mg/dL (70-99) Laboratory Tests Test 12/02/16 16:37 12/02/16 20:43 12/03/16 05:00 12/03/16 08:04 Glucose (Fingerstick) 77mg/dL (70-99) 129mg/dL (70-99) 57mg/dL (70-99) White Blood Count 8.3x10^3/uL (4.0-11.0) Red Blood Count 2.64x10^6/uL (4.30-5.70) Hemoglobin 8.1g/dL (13.0-17.5) Hematocrit 23.9% (39.0-53.0) Mean Corpuscular Volume 90fL (79-100) Mean Corpuscular Hemoglobin 31pg (25-35) Mean Corpuscular Hemoglobin Concent 34g/dL (31-37) Red Cell Distribution Width 14.7% (11.5-14.5) Platelet Count 261x10^3/uL (140-400) Neutrophils (%) (Auto) 58% (31-73) Lymphocytes (%) (Auto) 30% (24-48) Monocytes (%) (Auto) 10% (0-9) Eosinophils (%) (Auto) 2% (0-3) Basophils (%) (Auto) 0% (0-3) Neutrophils # (Auto) 4.8x10^3uL (1.8-7.7) Lymphocytes # (Auto) 2.5x10^3/uL (1.0-4.8) Monocytes # (Auto) 0.8x10^3/uL (0.0-1.1) Eosinophils # (Auto) 0.2x10^3/uL (0.0-0.7) Basophils # (Auto) 0.0x10^3/uL (0.0-0.2) Test 12/03/16 08:49 12/03/16 09:35 12/03/16 11:37 Glucose (Fingerstick) 55mg/dL (70-99) 131mg/dL (70-99) 189mg/dL (70-99) Medications Current Medications Vancomycin HCl 1 each 1 each PRN DAILY PRN MC SEE COMMENTS; Start 11/26/16 at 12 :45; Stop 11/26/16 at 13:30; Status DC Sodium Chloride 500 ml @ 500 mls/hr 1X ONCE IV Last administered on 11/26/16t 14:52; Start 11/26/16 at 12:45; Stop 11/26/16 at 13:44; Status DC Vancomycin HCl/ Sodium Chloride (Iv Sodium Chloride 0.9% 500ml Bag) 500 ml @ 250 mls/hr 1X ONCE IV Last administered on 11/26/16 13:09; Start 11/26/16 at 13 :00; Stop 11/26/16 at 14:59; Status DC Ondansetron HCl (Zofran) 4 mg PRN Q8HRS PRN IV NAUSEA/VOMITING; Start 11/26/16 at 12:45; Stop 11/26/16 at 15:59; Status DC Morphine Sulfate 2 mg 2 mg PRN Q2HR PRN IV PAIN; Start 11/26/16 at 12:45; Stop 11/27/16 at 12:44; Status DC Sodium Chloride 1,000 ml @ 125 mls/hr Q8H IV Last administered on 11/27/16 05: 57; Start 11/26/16 at 12:43; Stop 11/27/16 at 12:42; Status DC Meropenem 500 mg/ Sodium Chloride 50 ml @ 100 mls/hr Q6HRS IV Last administered on 12/02/16 05:42; Start 11/26/16 at 14:00; Stop 12/02/16 at 13:38 ; Status DC Micafungin Sodium 100 mg/Dextrose 100 ml @ 100 mls/hr Q24H IV Last administered on 12/01/16 15:17; Start 11/26/16 at 14:00; Stop 12/02/16 at 13:38 ; Status DC Linezolid (Zyvox Premix) 300 ml @ 300 mls/hr Q12HR IV Last administered on 11/28 08:38; Start 11/26/16 at 14:00; Stop 11/28/16 at 12:00; Status DC Acetaminophen (Tylenol) 650 mg PRN Q6HRS PRN PO MILD PAIN / TEMP; Start at 15:45 Ondansetron HCl (Zofran) 4 mg PRN Q6HRS PRN IV NAUSEA/VOMITING Last administered on 12/02/16 05:41; Start 11/26/16 at 15:45 Acetaminophen/ Hydrocodone Bitart (Lortab 5/325) 1 tab PRN Q4HRS PRN PO PAIN Last administered on 12/01/16 08:03; Start 11/26/16 at 15:45 Insulin Aspart (Novolog) 0-9 UNITS TIDWMEALS SQ Last administered on 12/02/16 13:54; Start 11/26/16 at 17:00 Dextrose 12.5 gm PRN Q15MIN PRN IV SEE COMMENTS; Start 11/26/16 at 15:45 Aspirin (Harrison Aspirin) 325 mg DAILY PO Last administered on 12/03/16 08:53; Start 11/27/16 at 09:00 Carvedilol (Coreg) 6.25 mg BIDWMEALS PO Last administered on 11/28/16 08:40; Start 11/26/16 at 17:00; Stop 11/28/16 at 15:41; Status DC Sodium Bicarbonate (Sodium Bicarbonate) 650 mg BID PO Last administered on 12/03 08:53; Start 11/26/16 at 21:00 Escitalopram Oxalate (Lexapro) 20 mg DAILY PO Last administered on 12/03/16 08 :54; Start 11/27/16 at 09:00 Non-Formulary Medication 40 unit HS SQ ; Start 11/26/16 at 21:00; Stop 11/26/16 at 21:00; Status DC Non-Formulary Medication 14 unit TIDAC SQ ; Start 11/26/16 at 16:30; Stop at 16:30; Status DC Fish Oil (Fish Oil) 1,000 mg DAILY PO Last administered on 12/03/16 08:56; Start 11/27/16 at 09:00 Hydrochlorothiazide (Microzide) 12.5 mg DAILY PO Last administered on 08:55; Start 11/27/16 at 09:00 Insulin Detemir (Levemir) 40 units QHS SQ Last administered on 12/02/16 21:36 ; Start 11/26/16 at 21:00 Insulin Aspart (Novolog) 10 units TIDWMEALS SQ Last administered on 12/02/16 18:47; Start 11/26/16 at 17:00 Losartan Potassium (Cozaar) 100 mg DAILY PO Last administered on 12/03/16 08: 55; Start 11/27/16 at 09:00 Acetylcysteine (Mucomyst 20% Oral Solution) 600 mg BID PO Last administered on 11/28/16 22:07; Start 11/27/16 at 12:45; Stop 11/28/16 at 22:00; Status DC Ondansetron HCl (Zofran) 4 mg PRN Q6HRS PRN IV Nausea; Start 11/28/16 at 07:00; Stop 11/28/16 at 23:00; Status DC Fentanyl Citrate (Fentanyl 2ml Vial) 25 mcg PRN Q5MIN PRN IV MILD PAIN; Start 11/28/16 at 07:00; Stop 11/28/16 at 23:00; Status DC Fentanyl Citrate (Fentanyl 2ml Vial) 50 mcg PRN Q5MIN PRN IV MODERATE PAIN; Start 11/28/16 at 07:00; Stop 11/28/16 at 23:00; Status DC Morphine Sulfate 1 mg 1 mg PRN Q10MIN PRN IV SEVERE PAIN; Start 11/28/16 at 07: 00; Stop 11/28/16 at 23:00; Status DC Lactated Ringer's (Iv Lactated Ringers) 1,000 ml @ 0 mls/hr Q0M IV ; Start 11/28 at 07:00; Stop 11/28/16 at 18:59; Status DC Lidocaine HCl 2 ml 1X PRN PRN ID IV START; Start 11/28/16 at 07:00; Stop at 06:59; Status DC Hydromorphone HCl (Dilaudid) 0.5 mg PRN Q10MIN PRN IV SEVERE PAIN, Second choice; Start 11/28/16 at 07:00; Stop 11/28/16 at 23:00; Status DC Prochlorperazine Edisylate (Compazine) 5 mg PACU PRN PRN IV NAUSEA; Start at 07:00; Stop 11/28/16 at 23:00; Status DC Fentanyl Citrate (Fentanyl 2ml Vial) 25 mcg PRN Q5MIN PRN IV MILD PAIN; Start 11/29/16 at 07:00; Stop 11/29/16 at 18:00; Status DC Fentanyl Citrate (Fentanyl 2ml Vial) 50 mcg PRN Q5MIN PRN IV MODERATE PAIN; Start 11/29/16 at 07:00; Stop 11/29/16 at 18:00; Status DC Morphine Sulfate 1 mg 1 mg PRN Q10MIN PRN IV SEVERE PAIN; Start 11/29/16 at 07: 00; Stop 11/29/16 at 18:00; Status DC Lactated Ringer's (Iv Lactated Ringers) 1,000 ml @ 30 mls/hr Q24H IV Last administered on 11/29/16 12:30; Start 11/29/16 at 07:00; Stop 11/29/16 at 18:59; Status DC Lidocaine HCl 2 ml 1X PRN PRN ID IV START; Start 11/29/16 at 07:00; Stop at 18:00; Status DC Hydromorphone HCl (Dilaudid) 0.5 mg PRN Q10MIN PRN IV SEVERE PAIN, Second choice; Start 11/29/16 at 07:00; Stop 11/29/16 at 18:00; Status DC Prochlorperazine Edisylate (Compazine) 5 mg PACU PRN PRN IV NAUSEA; Start at 07:00; Stop 11/29/16 at 18:00; Status DC Carvedilol 12.5 mg 12.5 mg BIDWMEALS PO Last administered on 12/03/16 08:53; Start 11/28/16 at 17:00 Cefazolin Sodium/ Dextrose (Ancef 2gm Premix) 50 ml @ 100 mls/hr 1X ONCE IV ; Start 11/29/16 at 06:00; Stop 11/29/16 at 06:29; Status DC Zolpidem Tartrate (Ambien) 5 mg 1X ONCE PO Last administered on 11/28/16 22:07 ; Start 11/28/16 at 22:00; Stop 11/28/16 at 22:01; Status DC Phytonadione (Vitamin K ) 1 mg 1X ONCE SQ Last administered on 23:43; Start 11/29/16 at 00:00; Stop 11/29/16 at 00:01; Status DC Hydralazine HCl (Apresoline) 10 mg PRN Q4HRS PRN IVP ELEVATED BP, SEE COMMENTS Last administered on 12/02/16 04:42; Start 11/29/16 at 08:30 Lactobacillus Acidophilus (Bacid, Svitlana-Bid) 1 tab TIDWMEALS PO Last administered on 12/03/16 12:39; Start 11/29/16 at 12:00 Furosemide 40 mg 40 mg 1X ONCE IVP ; Start 11/29/16 at 12:45; Stop 11/29/16 at 12 :45; Status DC Heparin Sodium (Porcine)/Sodium Chloride (Iv Sodium Chloride 0.9% 500ml Bag) 505 ml @ 505 mls/hr 1X PERIOP ONCE IRR Last administered on 11/29/16 13:48; Start 11/29/16 at 15:00; Stop 11/29/16 at 15:59; Status DC Fentanyl Citrate (Fentanyl 2ml Vial) 25 mcg PRN Q5MIN PRN IV MILD PAIN; Start 11/30/16 at 07:00; Stop 12/01/16 at 06:59; Status DC Fentanyl Citrate (Fentanyl 2ml Vial) 50 mcg PRN Q5MIN PRN IV MODERATE PAIN; Start 11/30/16 at 07:00; Stop 12/01/16 at 06:59; Status DC Morphine Sulfate 1 mg 1 mg PRN Q10MIN PRN IV SEVERE PAIN; Start 11/30/16 at 07: 00; Stop 12/01/16 at 06:59; Status DC Lactated Ringer's (Iv Lactated Ringers) 1,000 ml @ 0 mls/hr Q0M IV Last administered on 11/30/16 11:17; Start 11/30/16 at 07:00; Stop 11/30/16 at 18:59; Status DC Lidocaine HCl 2 ml 1X PRN PRN ID IV START; Start 11/30/16 at 07:00; Stop at 06:59; Status DC Hydromorphone HCl (Dilaudid) 0.5 mg PRN Q10MIN PRN IV SEVERE PAIN, Second choice; Start 11/30/16 at 07:00; Stop 12/01/16 at 06:59; Status DC Prochlorperazine Edisylate (Compazine) 5 mg PACU PRN PRN IV NAUSEA; Start at 07:00; Stop 12/01/16 at 06:59; Status DC Fentanyl Citrate (Fentanyl 2ml Vial) 25 mcg PRN Q5MIN PRN IV MILD PAIN; Start 11/29/16 at 18:45; Stop 12/01/16 at 16:55; Status DC Fentanyl Citrate (Fentanyl 2ml Vial) 50 mcg PRN Q5MIN PRN IV MODERATE PAIN Last administered on 11/29/16 18:55; Start 11/29/16 at 18:45; Stop 11/29/16 at 21: 00; Status DC Hydromorphone HCl (Dilaudid) 0.5 mg PRN Q10MIN PRN IV SEVERE PAIN, Second choice; Start 11/29/16 at 18:45; Stop 11/29/16 at 21:00; Status DC Morphine Sulfate 1 mg PRN Q10MIN PRN IV SEVERE PAIN; Start 11/29/16 at 18:45; Stop 11/29/16 at 21:00; Status DC Ondansetron HCl (Zofran) 4 mg PRN Q6HRS PRN IV Nausea; Start 11/29/16 at 18:45; Stop 11/29/16 at 21:00; Status DC Prochlorperazine Edisylate (Compazine) 5 mg PACU PRN PRN IV NAUSEA; Start at 18:45; Stop 11/29/16 at 21:00; Status DC Clopidogrel Bisulfate (Plavix) 150 mg 1X ONCE PO Last administered on 19:22; Start 11/29/16 at 19:30; Stop 11/29/16 at 19:31; Status DC Vancomycin HCl 1 gm 1 gm STK-MED ONCE .ROUTE ; Start 11/29/16 at 13:00; Stop 11/30 at 08:28; Status DC Propofol (Diprivan) 20 ml @ As Directed STK-MED ONCE IV ; Start 11/30/16 at 11:14 ; Stop 11/30/16 at 11:15; Status DC Lidocaine HCl 100 mg STK-MED ONCE .ROUTE ; Start 11/30/16 at 11:14; Stop 11/30/16 at 11:15; Status DC Fentanyl Citrate 100 mcg 100 mcg STK-MED ONCE .ROUTE ; Start 11/30/16 at 11:14; Stop 11/30/16 at 11:15; Status DC Vancomycin HCl 250 ml @ 250 mls/hr 1X PREOP PRN IV Pre Op Last administered on 11/30/16 12:14; Start 12/01/16 at 06:00; Stop 12/01/16 at 16:57; Status DC Propofol (Diprivan) 50 ml @ As Directed STK-MED ONCE IV ; Start 11/30/16 at 12:19 ; Stop 11/30/16 at 12:20; Status DC Bupivacaine HCl (Marcaine 0.5%) 50 ml STK-MED ONCE IJ Last administered on 12:27; Start 11/30/16 at 12:27; Stop 11/30/16 at 12:54; Status DC Ephedrine Sulfate 50 mg STK-MED ONCE IV ; Start 11/30/16 at 12:47; Stop 11/30/16 at 12:48; Status DC Lidocaine HCl 20 ml 20 ml STK-MED ONCE IJ Last administered on 11/30/16 12:27; Start 11/30/16 at 12:27; Stop 11/30/16 at 12:54; Status DC Propofol (Diprivan) 50 ml @ As Directed STK-MED ONCE IV ; Start 11/30/16 at 13:07 ; Stop 11/30/16 at 13:08; Status DC Diphenhydramine HCl 50 mg 50 mg PRN Q6HRS PRN PO ITCHING Last administered on 23:12; Start 11/30/16 at 22:45 Sodium Chloride (Iv Sodium Chloride 0.9% 1000ml Bag) 1,000 ml @ 75 mls/hr [id number] IV Last administered on 12/01/16 12:25; Start 12/01/16 at 12:30; Stop 12/01/16 at 16:16; Status DC Oxycodone/ Acetaminophen (Percocet 5/325) 1 tab PRN Q4HRS PRN PO PAIN Last administered on 12/03/16 14:27; Start 12/01/16 at 11:45 Potassium Chloride (Klor-Con) 40 meq 1X ONCE PO Last administered on 15:18; Start 12/01/16 at 15:00; Stop 12/01/16 at 15:01; Status DC Furosemide (Lasix) 20 mg 1X ONCE IVP Last administered on 12/01/16 16:35; Start 12/01/16 at 16:15; Stop 12/01/16 at 16:18; Status DC Cefpodoxime Proxetil (Vantin) 200 mg BID PO Last administered on 12/03/16 12: 39; Start 12/02/16 at 14:00 Furosemide (Lasix) 20 mg 1X ONCE IVP ; Start 12/03/16 at 14:30; Stop 12/03/16 at 14:31; Status DC Active Scripts Active Reported Valsartan-Hctz 160-12.5 Mg Tab (Valsartan/Hydrochlorothiazide) 1 Each Tablet 1 Each PO DAILY Fish Oil 1,200 Mg Softgel ([place]ives-3 Fatty Acids/Fish Oil) 1 Each Capsule 1 Each PO BID Humalog (Insulin Lispro) 100 Unit/1 Ml Insuln.pen 14 Unit SQ TIDAC Lantus (Insulin Glargine,Hum.rec.anlog) 100 Unit/1 Ml Vial 40 Unit SQ HS Sodium Bicarbonate 650 Mg Tablet 1 Tab PO BID Aspirin 325 Mg Tablet 325 Mg PO Warfarin Sodium 5 Mg Tablet 5 Mg PO DAILY Coreg (Carvedilol) 6.25 Mg Tablet 6.25 Mg PO BIDWMEALS Lexapro (Escitalopram Oxalate) 20 Mg Tablet 20 Mg PO DAILY Vitals/I & O Vital Sign - Last 24 Hours 12/02/16 12/02/16 12/02/16 12/02/16 15:39 18:41 19:35 19:58 Temp 97.7 97.7 Pulse 60 59 Resp 18 26 B/P 125/58 129/63 Pulse Ox 94 O2 Delivery Room Air Room Air Room Air 12/02/16 12/02/16 12/03/16 12/03/16 20:19 23:28 00:31 03:45 Temp 97.7 97.7 97.7 97.7 Pulse 58 56 Resp 24 24 B/P 129/60 168/79 Pulse Ox 96 92 O2 Delivery Room Air Room Air Room Air Room Air 12/03/16 12/03/16 12/03/16 12/03/16 07:20 08:00 08:53 08:54 Temp 97.6 97.6 Pulse 93 93 Resp 18 18 B/P 162/69 162/69 Pulse Ox 96 O2 Delivery Room Air Room Air Room Air 12/03/16 12/03/16 12/03/16 12/03/16 08:55 09:54 11:15 14:27 Temp 97.8 97.8 Pulse 93 69 Resp 18 18 B/P 162/69 126/56 Pulse Ox 93 O2 Delivery Room Air Room Air Room Air Intake and Output 12/02/16 12/02/16 12/03/16 15:00 23:00 07:00 Intake Total 250 ml 100 ml 740 ml Output Total 100 ml Balance 250 ml 0 ml 740 ml JESS VILLAFANA MD Dec 03, 2016 15:09
[2016-12-03 15:15] VITALS: BP 129/81
[2016-12-03 19:30] VITALS: BP 142/82
[2016-12-03] MEDS: INSULIN DETEMIR 300 UNITS/3 ML INSULN.PEN. SQ SCH (21:15)
[2016-12-03 23:00] VITALS: BP 150/55
[2016-12-04 03:28] VITALS: BP 164/68
[2016-12-04 05:53] LABS: BASO # 0.1 x10^3/uL (0.0-0.2); BASO % 1 % (0-3); EOS % 2 % (0-3); HEMATOCRIT 26.6 % (39.0-53.0); HEMOGLOBIN 9.4 g/dL (13.0-17.5); LYMPH # 1.6 x10^3/uL (1.0-4.8); LYMPH % 20 % (24-48); MEAN CORPUSCULAR HEMOGLOBIN 32 pg (25-35); MEAN CORPUSCULAR HGB CONC 36 g/dL (31-37); MEAN CORPUSCULAR VOLUME 89 fL (79-100); MONO % 5 % (0-9); NEUT % 72 % (31-73); PLATELET COUNT 322 x10^3/uL (140-400); RED BLOOD COUNT 2.97 x10^6/uL (4.30-5.70); WHITE BLOOD COUNT 8.2 x10^3/uL (4.0-11.0)
[2016-12-04 07:00] VITALS: BP 168/61
[2016-12-04] MEDS: INSULIN ASPART 300 UNITS/3 ML INSULN.PEN SQ SCH ×4 (08:00→12:49)
--- NOTE | 2016-12-04 08:30 | PDOC ---
Infectious Disease Note Subjective Subjective feeling good ROS ROS GEN: Denies fevers, chills, sweats HEENT: Denies blurred vision, sore throat CV: Denies chest pain RESP: Denies shortness of air, cough GI: Denies n/v/d NEURO: Denies confusion, dizziness Vital Sign Vital Signs Vital Signs Date Time Temp Pulse Resp B/P Pulse Ox O2 Delivery O2 Flow Rate FiO2 12/04/16 07:00 98.4 67 17 168/61 95 Nasal Cannula 98.4 Physical Exam PHYSICAL EXAM GENERAL: NAD, Alert HEENT: PERRL, OC/OP NECK: Supple, no JVD, no LN LUNGS: Clear HEART: S1S2, no gallop, no murmur ABD: Soft, NT, no organomegaly, no rebound EXT: No edema, no cyanosis,, TMA site good WIRE SPINNER: Alert, oriented x 3, no focal neurologic deficit SKIN: No rash IV: ok Labs Lab Laboratory Tests Test 12/03/16 08:49 12/03/16 09:35 12/03/16 11:37 12/03/16 16:51 Glucose (Fingerstick) 55mg/dL (70-99) 131mg/dL (70-99) 189mg/dL (70-99) 169mg/dL (70-99) Test 12/03/16 20:40 12/04/16 05:20 12/04/16 07:49 Glucose (Fingerstick) 178mg/dL (70-99) 102mg/dL (70-99) White Blood Count 8.2x10^3/uL (4.0-11.0) Red Blood Count 2.97x10^6/uL (4.30-5.70) Hemoglobin 9.4g/dL (13.0-17.5) Hematocrit 26.6% (39.0-53.0) Mean Corpuscular Volume 89fL (79-100) Mean Corpuscular Hemoglobin 32pg (25-35) Mean Corpuscular Hemoglobin Concent 36g/dL (31-37) Red Cell Distribution Width 15.0% (11.5-14.5) Platelet Count 322x10^3/uL (140-400) Neutrophils (%) (Auto) 72% (31-73) Lymphocytes (%) (Auto) 20% (24-48) Monocytes (%) (Auto) 5% (0-9) Eosinophils (%) (Auto) 2% (0-3) Basophils (%) (Auto) 1% (0-3) Neutrophils # (Auto) 5.9x10^3uL (1.8-7.7) Lymphocytes # (Auto) 1.6x10^3/uL (1.0-4.8) Monocytes # (Auto) 0.4x10^3/uL (0.0-1.1) Eosinophils # (Auto) 0.2x10^3/uL (0.0-0.7) Basophils # (Auto) 0.1x10^3/uL (0.0-0.2) Objective Assessment Wet Gangrene improved to dry- right 3 rd toe Staph aureus 2/. S/p TMA 11/30 PAD - s/p by bypass 11/29. right popiteal to posterior tibial artery bypass with spliced great and small saphenous veins PCN allergy H/o strep Loose stool - some better today Plan Plan of Care po vantin for 5 days d/c to SNF/home ok d/w ELIE MURPHY MD Dec 04, 2016 08:30
[2016-12-04] MEDS: ASPIRIN 325 MG TABLET PO SCH (09:29)
[2016-12-04] MEDS: LACTOBACILLUS ACIDOPH & BULGAR 1 TABLET. PO SCH ×2 (09:30→12:49)
[2016-12-04] MEDS: SODIUM BICARBONATE 650 MG TABLET. PO SCH (09:30)
[2016-12-04] MEDS: CARVEDILOL 12.5 MG TABLET PO SCH (09:31)
[2016-12-04] MEDS: CEFPODOXIME PROXETIL 200 MG TABLET PO SCH (09:31)
[2016-12-04] MEDS: OMEGA-3 FATTY ACIDS/FISH OIL 1,000 MG CAPSULE. PO SCH (09:32)
[2016-12-04] MEDS: LOSARTAN POTASSIUM 50 MG TABLET. PO SCH (09:33)
[2016-12-04] MEDS: HYDROCHLOROTHIAZIDE 12.5 MG CAPSULE. PO SCH (09:34)
[2016-12-04] MEDS: ESCITALOPRAM 10 MG TABLET. PO SCH (09:34)
[2016-12-04 10:22] VITALS: BP 149/55
[2016-12-04] MEDS ORDERED: ASCORBIC ACID 500 MG TABLET PO SCH (13:00)
[2016-12-04] MEDS ORDERED: MULTIVITAMIN with MINERAL TABLET. PO SCH (13:00)
[2016-12-04 14:23] VITALS: BP 111/43
[2016-12-04] MEDS ORDERED: CARV12.52 PO (14:29)
[2016-12-04] MEDS ORDERED: ASCO500T2 PO (14:29)
[2016-12-04] MEDS ORDERED: CEFP200T PO (14:29)
[2016-12-04] MEDS ORDERED: OXYC1TAB7 PO (14:29)
--- NOTE | 2016-12-04 15:00 | PDOC3 ---
Discharge Summary [facility] Date of Admission: Nov 26, 2016 Discharge Date: Dec 04, 2016 Admitting Diagnosis 1. Right 3rd toe osteomyelitis s/p PAD s/p right pop - PT bypass, post TMA 2. 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 dm2 on insulin 4. H/O CAD post CAG 5. HTN 6. HLD 7. peripheral artery disease 8 anemia of CKD 9. CKD4 10. H/O DVT OF right leg on Coumadin Problems: Final Diagnosis Problems Medical Problems: (1) Cellulitis of right toe Status: Acute (2) Osteomyelitis Status: Acute (3) Peripheral vascular disease Status: Acute CONSULTS vascular pod ortho id Brief Hospital Course 76-year-old male presenting to the emergency department after discovering he has osteomyelitis of the foot. pt has DM ON Insulin, right 4th and 5th toes post amputation before for osteo. He saw his blemish remover last week, right foot has worsening erythema, and 3rd toe is gangrene, did MRI showed osteo, started with doxy yesterday, comes here today for iv abx and plan to do sx. Pt got right side fem-pop bypas, then TMA. wound cx + MSSA. dc home with [facility] x5ds. pt refused rehab, home with PTOT warfarin held since sx, need to fu with pod and may resume it soon. dc time 40min. General: Alert, Oriented X3, No acute distress Heart: Regular rate, Normal S1, Normal S2, No murmurs Lungs: Clear, Other Abdomen: Normal bowel sounds, Soft, No tenderness, No masses Extremities: right foot post sx with clean dressing Skin: Other Patient History: Patient reports no known family medical history. Problems: Disposition HH CONDITION AT DISCHARGE: Improved, Stable Diet ada Scheduled Ascorbic Acid (Vitamin C) 500 MG PO DAILY Carvedilol (Carvedilol) 12.5 MG PO BIDWMEALS Cefpodoxime Proxetil (Cefpodoxime Proxetil) 200 MG PO BID Escitalopram Oxalate (Lexapro) 20 MG PO DAILY (Reported) Insulin Glargine,Hum.rec.anlog (Lantus) 40 UNIT SQ HS (Reported) Insulin Lispro (Humalog) 14 UNIT SQ TIDAC (Reported) [place]-3 Fatty Acids/Fish Oil (Fish Oil 1,200 Mg Softgel) 1 EACH PO BID (Reported ) Sodium Bicarbonate (Sodium Bicarbonate) 1 TAB PO BID (Reported) Valsartan/Hydrochlorothiazide (Valsartan-Hctz 160-12.5 Mg Tab) 1 EACH PO DAILY ( Reported) Scheduled PRN Oxycodone Hcl/Acetaminophen (Oxycodone-Acetaminophen 5-325) 1 TAB PO PRN Q4HRS PRN PRN PAIN Miscellaneous Medications Aspirin (Aspirin) 325 MG PO (Reported) Discontinued Medications Carvedilol (Coreg) 6.25 MG PO BIDWMEALS (Reported) Warfarin Sodium (Warfarin Sodium) 5 MG PO DAILY (Reported) Follow Up sx, id in 2 weeks FAZAL GUTIERREZ MD Dec 04, 2016 15:00
--- NOTE | 2016-12-04 15:13 | PDOC ---
SURGICAL PROGRESS NOTE Subjective pt without complaints. Working with PT/OT Vital Signs Vital Signs Date Time Temp Pulse Resp B/P Pulse Ox O2 Delivery O2 Flow Rate FiO2 12/04/16 14:23 97.6 60 22 111/43 99 Room Air 97.6 I&O Intake and Output 12/04/16 07:00 Intake Total 400 ml Output Total 1775 ml Balance -1375 ml Intake Oral 400 ml Output Urine Total 1775 ml # Voids 1 # Bowel Movements 2 Extremities: Other (2+ graft pulse medial right leg. Dressing dry) Labs Laboratory Tests Test 12/02/16 16:37 12/02/16 20:43 12/03/16 05:00 12/03/16 08:04 Glucose (Fingerstick) 77mg/dL (70-99) 129mg/dL (70-99) 57mg/dL (70-99) White Blood Count 8.3x10^3/uL (4.0-11.0) Red Blood Count 2.64x10^6/uL (4.30-5.70) Hemoglobin 8.1g/dL (13.0-17.5) Hematocrit 23.9% (39.0-53.0) Mean Corpuscular Volume 90fL (79-100) Mean Corpuscular Hemoglobin 31pg (25-35) Mean Corpuscular Hemoglobin Concent 34g/dL (31-37) Red Cell Distribution Width 14.7% (11.5-14.5) Platelet Count 261x10^3/uL (140-400) Neutrophils (%) (Auto) 58% (31-73) Lymphocytes (%) (Auto) 30% (24-48) Monocytes (%) (Auto) 10% (0-9) Eosinophils (%) (Auto) 2% (0-3) Basophils (%) (Auto) 0% (0-3) Neutrophils # (Auto) 4.8x10^3uL (1.8-7.7) Lymphocytes # (Auto) 2.5x10^3/uL (1.0-4.8) Monocytes # (Auto) 0.8x10^3/uL (0.0-1.1) Eosinophils # (Auto) 0.2x10^3/uL (0.0-0.7) Basophils # (Auto) 0.0x10^3/uL (0.0-0.2) Test 12/03/16 08:49 12/03/16 09:35 12/03/16 11:37 12/03/16 16:51 Glucose (Fingerstick) 55mg/dL (70-99) 131mg/dL (70-99) 189mg/dL (70-99) 169mg/dL (70-99) Test 12/03/16 20:40 12/04/16 05:20 12/04/16 07:49 12/04/16 11:28 Glucose (Fingerstick) 178mg/dL (70-99) 102mg/dL (70-99) 166mg/dL (70-99) White Blood Count 8.2x10^3/uL (4.0-11.0) Red Blood Count 2.97x10^6/uL (4.30-5.70) Hemoglobin 9.4g/dL (13.0-17.5) Hematocrit 26.6% (39.0-53.0) Mean Corpuscular Volume 89fL (79-100) Mean Corpuscular Hemoglobin 32pg (25-35) Mean Corpuscular Hemoglobin Concent 36g/dL (31-37) Red Cell Distribution Width 15.0% (11.5-14.5) Platelet Count 322x10^3/uL (140-400) Neutrophils (%) (Auto) 72% (31-73) Lymphocytes (%) (Auto) 20% (24-48) Monocytes (%) (Auto) 5% (0-9) Eosinophils (%) (Auto) 2% (0-3) Basophils (%) (Auto) 1% (0-3) Neutrophils # (Auto) 5.9x10^3uL (1.8-7.7) Lymphocytes # (Auto) 1.6x10^3/uL (1.0-4.8) Monocytes # (Auto) 0.4x10^3/uL (0.0-1.1) Eosinophils # (Auto) 0.2x10^3/uL (0.0-0.7) Basophils # (Auto) 0.1x10^3/uL (0.0-0.2) Laboratory Tests Test 12/03/16 16:51 12/03/16 20:40 12/04/16 05:20 12/04/16 07:49 Glucose (Fingerstick) 169mg/dL (70-99) 178mg/dL (70-99) 102mg/dL (70-99) White Blood Count 8.2x10^3/uL (4.0-11.0) Red Blood Count 2.97x10^6/uL (4.30-5.70) Hemoglobin 9.4g/dL (13.0-17.5) Hematocrit 26.6% (39.0-53.0) Mean Corpuscular Volume 89fL (79-100) Mean Corpuscular Hemoglobin 32pg (25-35) Mean Corpuscular Hemoglobin Concent 36g/dL (31-37) Red Cell Distribution Width 15.0% (11.5-14.5) Platelet Count 322x10^3/uL (140-400) Neutrophils (%) (Auto) 72% (31-73) Lymphocytes (%) (Auto) 20% (24-48) Monocytes (%) (Auto) 5% (0-9) Eosinophils (%) (Auto) 2% (0-3) Basophils (%) (Auto) 1% (0-3) Neutrophils # (Auto) 5.9x10^3uL (1.8-7.7) Lymphocytes # (Auto) 1.6x10^3/uL (1.0-4.8) Monocytes # (Auto) 0.4x10^3/uL (0.0-1.1) Eosinophils # (Auto) 0.2x10^3/uL (0.0-0.7) Basophils # (Auto) 0.1x10^3/uL (0.0-0.2) Test 12/04/16 11:28 Glucose (Fingerstick) 166mg/dL (70-99) Problem List Problems Medical Problems: (1) Cellulitis of right toe Status: Acute (2) Osteomyelitis Status: Acute (3) Peripheral vascular disease Status: Acute Assessment/Plan 1. patent bypass graft right leg Plan: ok to discharge f/u in 2 weeks for suture removal. Problems: JENNA HANDY II, MD Dec 04, 2016 15:13
[2016-12-04] MEDS ORDERED: WARF5TAB PO (16:05)
[2016-12-04] MEDS ORDERED: WARFARIN 5 MG TABLET. PO SCH (16:30)
== END 2016-12-04 17:00 | disposition home health service (06) | DRG 239 ==
LOC: ER 11:43 → 5 SOUTH 12:47 → 2 SOUTH 11-29 12:52
PROVIDERS: ADMIT Internal Medicine; ATTEND Internal Medicine
PROC: 06BR0ZZ (ICD-10-PCS; 2016-11-29)
PROC: 041M09Q Bypass Right Popliteal Artery to Lower Extremity Artery with Autologous Venous Tissue, Open Approach (ICD-10-PCS; principal; 2016-11-29 13:00)
PROC: 0Y6M0Z9 Detachment at Right Foot, Partial 1st Ray, Open Approach (ICD-10-PCS; 2016-11-30)
PROC: 06BP0ZZ Excision of Right Saphenous Vein, Open Approach (ICD-10-PCS; 2016-11-30)
PROC: 0Y6M0ZB Detachment at Right Foot, Partial 2nd Ray, Open Approach (ICD-10-PCS; 2016-11-30)
PROC: 0Y6M0ZC Detachment at Right Foot, Partial 3rd Ray, Open Approach (ICD-10-PCS; 2016-11-30)
PROC: 0Y6M0ZD Detachment at Right Foot, Partial 4th Ray, Open Approach (ICD-10-PCS; 2016-11-30)
PROC: 0Y6M0ZF Detachment at Right Foot, Partial 5th Ray, Open Approach (ICD-10-PCS; 2016-11-30)
DX: E11.52 Type 2 diabetes mellitus with diabetic peripheral angiopathy with gangrene (principal); N17.0 Acute kidney failure with tubular necrosis; M86.8X7 Other osteomyelitis, ankle and foot; I13.0 Hypertensive heart and chronic kidney disease with heart failure and stage 1 through stage 4 chronic kidney disease, or unspecified chronic kidney disease; L03.115 Cellulitis of right lower limb; N18.4 Chronic kidney disease, stage 4 (severe); E11.69 Type 2 diabetes mellitus with other specified complication; E11.22 Type 2 diabetes mellitus with diabetic chronic kidney disease; I73.9 Peripheral vascular disease, unspecified; Z79.4 Long term (current) use of insulin; D63.1 Anemia in chronic kidney disease; E11.42 Type 2 diabetes mellitus with diabetic polyneuropathy; E66.9 Obesity, unspecified; E78.00 Pure hypercholesterolemia, unspecified; E78.5 Hyperlipidemia, unspecified; E87.6 Hypokalemia; I25.10 Atherosclerotic heart disease of native coronary artery without angina pectoris; I50.9 Heart failure, unspecified; I77.1 Stricture of artery; L03.031 Cellulitis of right toe; F32.9 Major depressive disorder, single episode, unspecified; F41.9 Anxiety disorder, unspecified; M65.9 Synovitis and tenosynovitis, unspecified; S91.301A Unspecified open wound, right foot, initial encounter; Z82.49 Family history of ischemic heart disease and other diseases of the circulatory system; Z83.3 Family history of diabetes mellitus; Z86.14 Personal history of Methicillin resistant Staphylococcus aureus infection; Z86.19 Personal history of other infectious and parasitic diseases; Z86.718 Personal history of other venous thrombosis and embolism; Z86.73 Personal history of transient ischemic attack (TIA), and cerebral infarction without residual deficits; Z88.0 Allergy status to penicillin; Z89.429 Acquired absence of other toe(s), unspecified side; Z95.1 Presence of aortocoronary bypass graft
CPT/HCPCS: 36415; 73630; 73718; 80048; 80053; 80061; 82947; 83880; 85027; 85610; 85651; 86140; 87071; 87075; 87186; 87205; 88305; 88311; 93005; 93306; 93926; 93970; 96365; C1769; J0360; J1815; J2020; J2185; J2248; J2405; J2704; J3010; J3370; J3430; J3490; J7030; J7040; J7120; Q0163; 97110; 97116; 99285-25

== ENCOUNTER → 2017-04-17 | Outpatient (CLI) | payer MEDICARE, OTHER ==
[~2017-04-17] MED LIST changes: +ASCO500T2 PO; -ASPI325T4 PO; +ASPI325T8 PO; +CARV12.52 PO; -ESCI20TA10 PO; +LEXAPRO20 MG PO; +OXYC1TAB7 PO; +WARF-78 PO
== END | disposition home or self-care (01) ==
LOC: SPEC 12:14
PROVIDERS: ATTEND Podiatrist Foot & Ankle Surgery
DX: S80.02XA Contusion of left knee, initial encounter (principal); X58.XXXA Exposure to other specified factors, initial encounter; Y93.89 Activity, other specified; Y92.89 Other specified places as the place of occurrence of the external cause; Y99.8 Other external cause status
CPT/HCPCS: 87071; 87075; 87186; 87205

== ENCOUNTER → 2017-04-27 | Outpatient (CLI) | payer MEDICARE, OTHER ==
--- NOTE | 2017-04-27 13:47 | KCIC ---
MR of the right foot without contrast HISTORY: Right foot osteomyelitis. Nonhealing stump wound. Surgery November 2016.. TECHNIQUE: Routine multiplanar sequences are obtained. COMPARISON: November 24, 2016 FINDINGS: Mild motion degradation. There has been apparent amputation of the forefoot at the level of the metatarsal shafts. There is abnormal soft tissue surrounding the first metatarsal shaft remnant and distal edge. There is abnormal marrow signal with loss of fatty signal within the remnant shaft of the first metatarsal, with associated edema. Findings are suspicious for recurrent or persistent osteomyelitis involving the first metatarsal remnant. Mild marrow edema and loss of fatty signal is seen within the distal shaft remnant of the second metatarsal, could be related to recent surgery but osteomyelitis is not excludable. The distal remnants of the third, fourth and fifth metatarsal shafts appear intact without evidence of osteomyelitis. Mild soft tissue edema or cellulitis around the visualized foot. Mild soft tissue fluid signal at the distal remnant of the first metatarsal, measuring about 2.2 cm x 0.9 cm x 1.9 cm, likely a phlegmon or postsurgical seroma. Abscess is also possible. Much smaller similar collection seen adjacent to the distal second metatarsal remnant. Tendons:Intact, no significant tendon sheath fluid. Tarsometatarsal joint: Lisfranc ligament complex intact. No abnormal tarsometatarsal subluxation. Joints: No evidence of large joint effusion. Tarsal sinus is unremarkable. IMPRESSION: 1. Post transmetatarsal amputation. Findings are suspicious for recurrent or residual osteomyelitis in the first metatarsal remnant, and possibly the distal second metatarsal remnant. 2. Mildly irregular soft tissue fluid signal at the distal first metatarsal remnant to lesser extent the distal second metatarsal remnant of uncertain sterility, but potentially small abscesses. Electronically signed by: Julius Barcenas MD (04/27/2017 1:44 PM) [id number]
== END | disposition home or self-care (01) ==
LOC: KCIC MRI 10:35
PROVIDERS: ATTEND Podiatrist Foot & Ankle Surgery
DX: M86.8X7 Other osteomyelitis, ankle and foot (principal); Z89.431 Acquired absence of right foot
CPT/HCPCS: 73718